=== PATIENT | male | born 1940 | race Caucasian/White ===

== ENCOUNTER → 2017-12-24 08:14 | Outpatient (CLI) | payer MEDICARE, OTHER, SELFPAY ==
[2017-12-24 10:40] LABS: Alanine Aminotransferase 39 IU/L (21-72); Albumin 4.4 g/dL (3.5-5.0); Albumin Globulin Ratio 1.4 (1.0-2.8); Alkaline Phosphatase 51 U/L (38-126); Aspartate Aminotransferase 48 IU/L (17-59); BUN Creatinine Ratio 12.1 (6-22); Blood Urea Nitrogen 17 mg/dL (9-20); Calcium 9.1 mg/dL (8.4-10.2); Carbon Dioxide 24 mmol/L (22-32); Chloride 104 mmol/L (98-107); Cholesterol 162 mg/dL (140-199); Globulin 3.1 g/dL (1.7-4.1); Glucose 109 mg/dL (80-110); HDL Cholesterol 50 mg/dL (40-60); LDL Cholesterol Calculated 84 mg/dL (<100); Sodium 143 mmol/L (137-145); Total Protein 7.5 g/dL (6.3-8.2); Triglycerides 141 mg/dL (35-150)
[2017-12-24 11:29] LABS: HEMOLYSIS 23 (0-50); Prostate Specific Antigen Scrn 1.96 ng/mL (0.1-4.0)
== END ==
PROVIDERS: PCP Internal Medicine; Visit Provider Internal Medicine
DX: E78.00 Pure hypercholesterolemia, unspecified (principal)
CPT/HCPCS: 36415; 80053; 80061; G0103

== ENCOUNTER → 2018-12-07 07:51 | Outpatient (CLI) | payer MEDICARE, OTHER, SELFPAY ==
[2018-12-07 08:31] LABS: Alanine Aminotransferase 24 IU/L (21-72); Albumin 4.3 g/dL (3.5-5.0); Albumin Globulin Ratio 1.5 (1.0-2.8); Alkaline Phosphatase 45 U/L (38-126); Aspartate Aminotransferase 25 IU/L (17-59); Bilirubin Total 0.6 mg/dL (0.2-1.3); Blood Urea Nitrogen 18 mg/dL (9-20); Calcium 9.6 mg/dL (8.4-10.2); Carbon Dioxide 28 mmol/L (22-32); Chloride 104 mmol/L (98-107); Cholesterol 157 mg/dL (140-199); Estimated Glomerular Filt Rate 58.4 mL/min (>60); Globulin 2.9 g/dL (1.7-4.1); Glucose 107 mg/dL (80-110); HDL Cholesterol 49 mg/dL (40-60); HEMOLYSIS < 15 (0-50); LDL Cholesterol Calculated 91 mg/dL (<100); Potassium 4.3 mmol/L (3.4-5.1); Sodium 142 mmol/L (137-145); Total Protein 7.2 g/dL (6.3-8.2); Triglycerides 83 mg/dL (35-150)
[2018-12-07 09:01] LABS: Prostate Specific Antigen Scrn 2.29 ng/mL (0.1-4.0)
== END ==
PROVIDERS: PCP Internal Medicine; Visit Provider Internal Medicine
DX: E78.00 Pure hypercholesterolemia, unspecified (principal); N18.9 Chronic kidney disease, unspecified; Z12.5 Encounter for screening for malignant neoplasm of prostate
CPT/HCPCS: 36415; 80053; 80061; G0103

== ENCOUNTER → 2019-12-28 07:30 | Outpatient (CLI) | payer MEDICARE, OTHER, SELFPAY ==
[2019-12-28 08:37] LABS: Add Manual Diff / Slide Review NO; Basophils Absolute Auto 0 /uL (0-100); Basophils Percent Auto 0.9 % (0-2); Eosinophils Absolute Auto 200 /uL (0-450); Eosinophils Percent Auto 4.4 % (2-4); Hematocrit 47.7 % (41-53); Hemoglobin 16.1 g/dL (13.5-17.5); Lymphocytes Absolute Auto 1600 /uL (1100-4500); Lymphocytes Percent Auto 32.2 % (25-40); Mean Corpuscular HGB Conc 33.7 % (30-36); Mean Corpuscular Hemoglobin 31.2 PG (26-34); Mean Corpuscular Volume 92.4 fL (80-100); Monocytes Absolute Auto 500 /uL (0-900); Monocytes Percent Auto 10.8 % (3-14); Neutrophils Absolute Auto 2600 /uL (1500-7000); Neutrophils Percent Auto 51.7 % (50-75); Platelet Count 165 X10^3/uL (150-400); Red Blood Cell Count 5.16 X10^6/uL (4.5-5.9)
[2019-12-28 09:38] LABS: Alanine Aminotransferase 30 IU/L (<50); Albumin 4.1 g/dL (3.5-5.0); Albumin Globulin Ratio 1.4 (1.0-2.8); Alkaline Phosphatase 55 U/L (38-126); Aspartate Aminotransferase 29 IU/L (17-59); BUN Creatinine Ratio 12.7 (6-22); Bilirubin Total 0.8 mg/dL (0.2-1.3); Blood Urea Nitrogen 16 mg/dL (9-20); Calcium 9.3 mg/dL (8.4-10.2); Carbon Dioxide 30 mmol/L (22-32); Chloride 103 mmol/L (98-107); Cholesterol 149 mg/dL (140-199); Estimated Glomerular Filt Rate 55.1 mL/min (>60); Glucose 100 mg/dL (80-110); HDL Cholesterol 46 mg/dL (40-60); HEMOLYSIS < 15 (0-50); LDL Cholesterol Calculated 77 mg/dL (<100); Potassium 4.4 mmol/L (3.4-5.1); Sodium 139 mmol/L (137-145); Total Protein 7.1 g/dL (6.3-8.2); Triglycerides 131 mg/dL (35-150)
== END ==
PROVIDERS: PCP Internal Medicine; Referring Provider Internal Medicine; Visit Provider Internal Medicine
DX: E78.00 Pure hypercholesterolemia, unspecified (principal); N18.9 Chronic kidney disease, unspecified
CPT/HCPCS: 36415; 80053; 80061; 85025

== ENCOUNTER → 2022-06-26 15:19 | Outpatient (CLI) | payer MEDICARE, SELFPAY ==
--- NOTE | 2022-06-26 15:22 | DI.RAD.S_ITS ---
PROCEDURE: XR CHEST 2V INDICATIONS: shortness of breath TECHNIQUE: 2 views of the chest were acquired. COMPARISON: [facility], , CHEST 2 VIEW, 03/20/2015, 10:37. FINDINGS: Surgical changes and devices: None. Lungs and pleura: Lungs are clear. No pleural effusions or pneumothorax. Mediastinum: Mediastinal contours are normal. Heart size is normal. Bones and chest wall: No suspicious bony abnormalities. Soft tissues appear unremarkable. IMPRESSION: Normal for age, source of current shortness of breath symptoms is not seen. Dictated by: Branden Benavides M.D. on 06/26/2022 at 16:33 Approved by: Branden Benavides M.D. on 06/26/2022 at 16:34
--- NOTE | 2022-06-26 15:22 | DI.RAD.S_ITS ---
PROCEDURE: XR ABDOMEN 1V INDICATIONS: abdominal/flank pain TECHNIQUE: One view of the abdomen acquired. COMPARISON: [facility], CT, ABDOMEN/PELVIS WITH CONTRAST, 10/23/2006, 18:41. FINDINGS: Surgical changes and devices: None. Bowel: Bowel gas pattern is normal except for right colonic obstipation. Additionally, at the right lower quadrant in the area of the medial cecum there is an unusual ovoid large calcification that measures up to 1.7 x 2.3 cm and at its inferior border there are at least 3 separate much smaller satellite calcifications. This structure was not present on a distant past CT scan 10/23/06. Soft tissues: No suspicious abdominal calcifications. Visualized solid organ contours appear normal in size. Bones: No suspicious bony lesions. IMPRESSION: No left lower quadrant abnormality found. Asymmetric right colonic obstipation. An unusual large calcification with adjacent inferior border satellite calcifications is present at the right lower quadrant. This is of uncertain etiology and clinical significance, but could represent a manifestation of a large appendicoliths or even a rare manifestation of appendiceal mucocele. It was not present on CT scanning in 2006. For both the left lower quadrant pain and this finding follow-up CT scanning with contrast likely is warranted. Dictated by: Branden Benavides M.D. on 06/26/2022 at 16:29 Approved by: Branden Benavides M.D. on 06/26/2022 at 16:33
== END ==
PROVIDERS: PCP Physician Assistant; Referring Provider Internal Medicine; Visit Provider Internal Medicine
DX: R10.9 Unspecified abdominal pain (principal); R06.02 Shortness of breath; K59.00 Constipation, unspecified
CPT/HCPCS: 71046; 74018

== ENCOUNTER 2022-06-26 20:47 | Inpatient (IN) | payer MEDICARE, SELFPAY ==
[2022-06-26 20:55] VITALS: BP 129/74; PULSE 70; RESP 16; TEMP 36.8; O2SAT 96; BMI 27.9
[2022-06-26 21:29] LABS: INR 1.2 (0.9-1.3); Prothrombin Time 13.8 SECONDS (10.1-12.7)
[2022-06-26 21:31] LABS: PTT Partial Thromboplastin Tim 32 SECONDS (26-36)
[2022-06-26 21:46] LABS: Add Manual Diff / Slide Review NO; Basophils Absolute Auto 200 /uL (0-100); Eosinophils Absolute Auto 200 /uL (0-450); Eosinophils Percent Auto 2.3 % (2-4); Hematocrit 45.2 % (41-53); Hemoglobin 15.4 g/dL (13.5-17.5); Lymphocytes Absolute Auto 1000 /uL (1100-4500); Lymphocytes Percent Auto 12.8 % (25-40); Mean Corpuscular HGB Conc 34.2 % (30-36); Mean Corpuscular Hemoglobin 31.1 PG (26-34); Mean Corpuscular Volume 91.1 fL (80-100); Monocytes Absolute Auto 900 /uL (0-900); Monocytes Percent Auto 11.7 % (3-14); Neutrophils Absolute Auto 5600 /uL (1500-7000); Neutrophils Percent Auto 71.2 % (50-75); Platelet Count 184 X10^3/uL (150-400); Red Blood Cell Count 4.96 X10^6/uL (4.5-5.9); Red Cell Distribution Width 13.5 % (11.6-14.8); White Blood Cell Count 7.9 X10^3/uL (4.5-11.0)
[2022-06-26 21:57] LABS: Alanine Aminotransferase 26 IU/L (<50); Albumin Globulin Ratio 1.1 (1.0-2.8); Alkaline Phosphatase 52 U/L (38-126); Aspartate Aminotransferase 23 IU/L (17-59); BUN Creatinine Ratio 10.5 (6-22); Bilirubin Total 0.6 mg/dL (0.2-1.3); Blood Urea Nitrogen 51 mg/dL (9-20); Calcium 8.9 mg/dL (8.4-10.2); Carbon Dioxide 18 mmol/L (22-32); Chloride 106 mmol/L (98-107); Creatine Kinase 162 U/L (55-170); Estimated Glomerular Filt Rate 11 mL/min (>60); Globulin 3.6 g/dL (1.7-4.1); Glucose 121 mg/dL (80-110); HEMOLYSIS 17 (0-50); Lipase 318 U/L (23-300); Potassium 4.2 mmol/L (3.4-5.1); Sodium 137 mmol/L (137-145); Total Protein 7.6 g/dL (6.3-8.2)
[2022-06-26 22:07] LABS: Troponin I 0.017 ng/mL (0.01-0.034)
[2022-06-26 22:12] LABS: CKMB % Relative Index 1.7 % (1.5-5.0)
[2022-06-26 22:14] VITALS: BP 131/71; PULSE 62; RESP 16; O2SAT 97
[2022-06-26 22:36] VITALS: PULSE 65; RESP 23; O2SAT 96
[2022-06-26 22:50] LABS: COVID19 -Nasal RAPID Negative (Negative)
[2022-06-26 22:59] LABS: D Dimer 11286 ng/ml (<500)
[2022-06-26 23:00] VITALS: BP 124/79; PULSE 61; RESP 23; O2SAT 96
--- NOTE | 2022-06-26 23:17 | DI.US.S_ITS ---
PROCEDURE: US PERIPH VENOUS LOW EXTREM BI INDICATIONS: ELEVATED D-DIMER TECHNIQUE: Real-time imaging, as well as color and pulse Doppler interrogation, were performed of the deep veins of both legs from the inguinal ligament to the popliteal fossa. COMPARISON: [facility], US, US RENAL COMPLETE, 06/26/2022, 23:52. [facility], CR, XR ABDOMEN 1V, 06/26/2022, 15:45. [facility], CR, XR CHEST 2V, 06/26/2022, 15:45. FINDINGS: Right: The common femoral, femoral and popliteal veins are normally compressible, and free of intraluminal thrombus. Color and pulse Doppler demonstrate normal phasic intravascular flow. There is normal augmentation response to distal compression maneuver. Left: The common femoral, femoral and popliteal veins are normally compressible, and free of intraluminal thrombus. Color and pulse Doppler demonstrate normal phasic intravascular flow. There is normal augmentation response to distal compression maneuver. IMPRESSION: Negative for deep venous thrombosis. Dictated by: Rah Gee M.D. on 06/26/2022 at 23:31 Approved by: Rah Gee M.D. on 06/26/2022 at 23:31
--- NOTE | 2022-06-26 23:17 | ED.RECABL ---
HPI - Recheck/Abnormal Lab/Rx General Chief Complaint: Recheck/Abnormal Lab/Rx Stated Complaint: Check for blood clots Time Seen by Provider: 06/26/22 22:37 Source: patient Mode of arrival: Family Vehicle History of Present Illness HPI narrative: Patient is a 82-year-old male history of diabetes, BPH presenting today at request of his provider for elevated D-dimer. He reports that he was in [place] for last 5 weeks they flew back about week ago. He has had some shortness of breath with exertion mostly today while mowing lawn. It did not stop him he was able to keep more in the lawn. He has had some left-sided pain last night to 6 days as well. He reports it by taking 2 Excedrin makes the pain go away. He denies any nausea or vomiting. Pain does not radiate to his groin. He denies any chest pain. No orthopnea no calf pain lower extremity edema. No other abdominal pain. He actually reports that he is having some mild right-sided pain as well but the left is worse. He went to his PCP earlier today outpatient blood work done found have an elevated D-dimer and sent to the ED. I do not have record of this test or any other test. Related Data Home Medications Medication Instructions Recorded Confirmed ASPIRIN (Aspirin Low Dose) 162 mg PO ##0 10/23/06 [LOVASTATIN] ##0 10/23/06 Allergies Allergy/AdvReac Type Severity Reaction Status Date / Time No Known Drug Allergies Allergy Verified 06/26/22 23:20 Review of Systems Review of Systems ROS Unobtainable: All systems reviewed & are unremarkable except as noted in HPI and below Patient History Medical History Acute renal insufficiency Benign prostatic hyperplasia Bilateral hydronephrosis Bilateral renal stones Elevated serum creatinine Lower urinary tract symptoms Social History household members: spouse Smoking Status: Never smoker alcohol intake: never Exam Initial Vital Signs Initial Vital Signs: Vital Signs Temperature 98.3 F 06/26/22 20:55 Pulse Rate 70 06/26/22 20:55 Respiratory Rate 16 06/26/22 20:55 Blood Pressure 129/74 06/26/22 20:55 Pulse Oximetry 96 06/26/22 20:55 Oxygen Delivery Method Room Air 06/26/22 20:55 GENERAL: Alert pleasant well-appearing 82-year-old male appears younger than stated age HEENT: Head atraumatic,EOMI, pupils reactive, face symmetric, moist mucous membranes CARDIOVASCULAR: Regular rate and rhythm without murmurs, rubs or gallops. RESPIRATORY: Breath sounds equal bilaterally, no wheezes rales or rhonchi. ABDOMEN: Soft, nontender. Normoactive bowel sounds all 4 quadrants. No guarding or rebound. Low old lift actual lateral pain no guarding or rebound : No CVA tenderness EXTREMITIES: Normal range of motion, no clubbing or edema. Neurovascularly intact NEUROLOGICAL: Alert and oriented x4.Normal gait and speech. SKIN: Warm, dry, no laceration, no petechiae, no rashes or lesions. Course Orders Ordered: ED Orders 06/26/22 21:05 Complete Blood Count AUTO DIFF Stat Comprehensive Metabolic Panel Stat D Dimer Stat Lipase Stat Magnesium Stat PTT Partial Thromboplastin Jeremi Stat Prothrombin Time INR Stat Troponin & CK Cardiac Panel Stat 06/26/22 22:32 COVID19 -Nasal RAPID Stat 06/26/22 23:17 US periph venous low extrem bi Stat 06/26/22 23:41 UA Complete [Urinalysis and Microscopic] Stat Urine Culture Stat 06/26/22 23:42 US renal complete Stat Creatinine Urine Random Stat Sodium Urine Random Stat 06/27/22 00:06 Lactate (Lactic Acid) Stat 06/27/22 00:27 CT kidney ureter bladder (KUB) Stat 06/27/22 00:58 BMP [Basic Metabolic Panel] Stat 06/27/22 07:00 Basic Metabolic Panel Urgent Complete Blood Count AUTO DIFF Urgent Acetaminophen (Acetaminophen 325 Mg Tablet) 650 mg PO Q6H PRN PRN Reason: Fever/Mild Pain (1-3) Hydrocodone Bitart/Acetaminophen (Hydrocodone/Acet 5/325 Tablet) 1 tab PO PACUNOW PRN PRN Reason: Mild or moderate pain Fentanyl (Fentanyl 100 Mcg/2 Ml Inj) 0 mcg IV Q5MIN PRN PRN Reason: Pain, Severe (7-10) Hydromorphone HCl (Hydromorphone 2 Mg Inj) 0 mg IV Q5MIN PRN PRN Reason: Pain, Mild (1-3) Hydroxyzine HCl (Hydroxyzine 50 Mg/Ml Inj) 25 mg IM NOW PRN PRN Reason: Pain, Mild (1-3) Lactated Ringer's (Lactated Ringers) 1,000 mls @ 42 mls/hr IV [facility] Last Infusion: 06/27/22 05:13 Dose: 0 mls/hr Documented By: Admin: 06/27/22 05:12 Dose: 42 mls/hr Documented By: CG Lactated Ringer's (Lactated Ringers) 1,000 mls @ 120 mls/hr IV [facility] Last Admin: 06/27/22 05:49 Dose: Not Given Documented By: Sodium Chloride (Normal Saline 0.9%) 1,000 mls @ 100 mls/hr IV [facility] Last Admin: 06/27/22 05:49 Dose: 100 mls/hr Documented By: Naloxone HCl (Naloxone 0.4 Mg/Ml Vial) 0.2 mg IV Q2MIN PRN PRN Reason: Opiate Reversal Ondansetron HCl (Ondansetron 4 Mg/2 Ml Inj) 4 mg IV NOW PRN PRN Reason: Nausea And Vomiting Ondansetron HCl (Ondansetron 4 Mg/2 Ml Inj) 4 mg IV Q8HR PRN PRN Reason: Nausea And Vomiting Oxycodone HCl (Oxycodone Ir 5 Mg Tablet) 5 mg PO PACUNOW PRN PRN Reason: Mild or moderate pain Oxycodone HCl (Oxycodone Ir 5 Mg Tablet) 5 mg PO Q3H PRN PRN Reason: Pain, Moderate (4-6) Discontinued Medications Sodium Chloride (Normal Saline 0.9%) 1,000 mls @ 1,000 mls/hr IV BOLUS ONE Stop: 06/27/22 00:16 Last Infusion: 06/27/22 00:47 Dose: 0 mls/hr Documented By: Admin: 06/26/22 23:20 Dose: 1,000 mls/hr Documented By: Cefazolin Sodium/Dextrose (Ancef) 100 mls @ 200 mls/hr IV NOW ONE Stop: 06/27/22 04:54 Last Infusion: 06/27/22 05:50 Dose: 0 mls/hr Documented By: Infusion: 06/27/22 04:08 Dose: 200 mls/hr Documented By: Admin: 06/27/22 04:00 Dose: 200 mls/hr Documented By: IRA Iopamidol (Iopamidol 30 Ml Vial) 30 ml INJ NOW ONE Stop: 06/27/22 04:31 Last Admin: 06/27/22 04:30 Dose: 30 ml Documented By: Lidocaine HCl (Lidocaine 2% (Glydo) 6 Ml Gel) 6 ml TOP NOW ONE Stop: 06/27/22 00:33 Last Admin: 06/27/22 01:00 Dose: 6 ml Documented By: Vital Signs Vital signs: Vital Signs - 8 hr 06/26/22 22:14 06/26/22 22:36 06/26/22 23:00 Pulse Rate 62 65 Respiratory Rate 16 23 Blood Pressure 131/71 124/79 Pulse Oximetry 97 96 Oxygen Delivery Method Room Air 06/26/22 23:00 06/26/22 23:30 06/27/22 01:46 Pulse Rate 61 70 63 Respiratory Rate 23 20 22 Blood Pressure Pulse Oximetry 96 94 93 Oxygen Delivery Method 06/27/22 02:00 06/27/22 02:00 06/27/22 02:30 Pulse Rate 63 62 Respiratory Rate 18 23 Blood Pressure 126/74 Pulse Oximetry 94 94 Oxygen Delivery Method 06/27/22 03:00 06/27/22 03:00 Pulse Rate 67 Respiratory Rate 20 Blood Pressure 141/67 H Pulse Oximetry 95 Oxygen Delivery Method MDM - Recheck/Abnormal Lab/Rx Lab Data 06/26/22 21:05 06/27/22 00:58 Labs: Lab Results 06/26/22 06/26/22 06/26/22 Range/Units 21:05 21:05 21:05 WBC 7.9 (4.5-11.0) X10^3/uL RBC 4.96 (4.5-5.9) X10^6/uL Hgb 15.4 (13.5-17.5) g/dL Hct 45.2 (41-53) % MCV 91.1 (80-100) fL MCH 31.1 (26-34) PG MCHC 34.2 (30-36) % RDW 13.5 (11.6-14.8) % Plt Count 184 (150-400) X10^3/uL Neut % (Auto) 71.2 (50-75) % Lymph % (Auto) 12.8 L (25-40) % Osborne % (Auto) 11.7 (3-14) % Eos % (Auto) 2.3 (2-4) % Baso % (Auto) 2.0 (0-2) % Neut # (Auto) 5600 (5970-1369) /uL Lymph # (Auto) 1000 L (4774-7495) /uL Osborne # (Auto) 900 (0-900) /uL Eos # (Auto) 200 (0-450) /uL Baso # (Auto) 200 H (0-100) /uL PT 13.8 H (10.1-12.7) SECONDS INR 1.2 (0.9-1.3) APTT 32 (26-36) SECONDS D-Dimer (<500) ng/ml Sodium 137 (137-145) mmol/L Potassium 4.2 (3.4-5.1) mmol/L Chloride 106 (98-107) mmol/L Carbon Dioxide 18 L (22-32) mmol/L BUN 51 H (9-20) mg/dL Creatinine 4.87 H (0.66-1.25) mg/dL Estimated GFR 11 L (>60) mL/min BUN/Creatinine Ratio 10.5 (6-22) Glucose 121 H (80-110) mg/dL Lactate (0.7-2.1) mmol/L Calcium 8.9 (8.4-10.2) mg/dL Magnesium 2.0 (1.6-2.3) mg/dL Total Bilirubin 0.6 (0.2-1.3) mg/dL AST 23 (17-59) IU/L ALT 26 (<50) IU/L Alkaline Phosphatase 52 (38-126) U/L Total Creatine Kinase 162 (55-170) U/L CK-MB (CK-2) 2.80 H (<2.37) ng/mL CK-MB (CK-2) Rel Index 1.7 (1.5-5.0) % Troponin I 0.017 (0.01-0.034) ng/mL Total Protein 7.6 (6.3-8.2) g/dL Albumin 4.0 (3.5-5.0) g/dL Globulin 3.6 (1.7-4.1) g/dL Albumin/Globulin Ratio 1.1 (1.0-2.8) Lipase 318 H (23-300) U/L Urine Color Urine Appearance Urine pH (4.5-8.0) Ur Specific [place] (1.000-1.035) Urine Protein (Negative) Urine Glucose (UA) (Negative) g/dL Urine Ketones (NEGATIVE) Urine Occult Blood (Negative) Urine Nitrate (Negative) Urine Bilirubin (NEGATIVE) Urine Urobilinogen (0.2) E.U./dL Ur Leukocyte Esterase (NEGATIVE) Urine RBC (0-5/HPF) Urine WBC (0-5/HPF) Calcium Oxalate Crystal Urine Bacteria (None) Ur Culture Indicated? Ur Random Sodium (30-90) mmol/L Urine Creatinine mg/dL SARS-CoV-2 (PCR) (Negative) 06/26/22 06/26/22 06/26/22 Range/Units 21:05 21:05 22:32 WBC (4.5-11.0) X10^3/uL RBC (4.5-5.9) X10^6/uL Hgb (13.5-17.5) g/dL Hct (41-53) % MCV (80-100) fL MCH (26-34) PG MCHC (30-36) % RDW (11.6-14.8) % Plt Count (150-400) X10^3/uL Neut % (Auto) (50-75) % Lymph % (Auto) (25-40) % Osborne % (Auto) (3-14) % Eos % (Auto) (2-4) % Baso % (Auto) (0-2) % Neut # (Auto) (4949-7518) /uL Lymph # (Auto) (0537-6674) /uL Osborne # (Auto) (0-900) /uL Eos # (Auto) (0-450) /uL Baso # (Auto) (0-100) /uL PT (10.1-12.7) SECONDS INR (0.9-1.3) APTT (26-36) SECONDS D-Dimer 12713 H (<500) ng/ml Sodium (137-145) mmol/L Potassium (3.4-5.1) mmol/L Chloride (98-107) mmol/L Carbon Dioxide (22-32) mmol/L BUN (9-20) mg/dL Creatinine (0.66-1.25) mg/dL Estimated GFR (>60) mL/min BUN/Creatinine Ratio (6-22) Glucose (80-110) mg/dL Lactate 1.5 (0.7-2.1) mmol/L Calcium (8.4-10.2) mg/dL Magnesium (1.6-2.3) mg/dL Total Bilirubin (0.2-1.3) mg/dL AST (17-59) IU/L ALT (<50) IU/L Alkaline Phosphatase (38-126) U/L Total Creatine Kinase (55-170) U/L CK-MB (CK-2) (<2.37) ng/mL CK-MB (CK-2) Rel Index (1.5-5.0) % Troponin I (0.01-0.034) ng/mL Total Protein (6.3-8.2) g/dL Albumin (3.5-5.0) g/dL Globulin (1.7-4.1) g/dL Albumin/Globulin Ratio (1.0-2.8) Lipase (23-300) U/L Urine Color Urine Appearance Urine pH (4.5-8.0) Ur Specific [place] (1.000-1.035) Urine Protein (Negative) Urine Glucose (UA) (Negative) g/dL Urine Ketones (NEGATIVE) Urine Occult Blood (Negative) Urine Nitrate (Negative) Urine Bilirubin (NEGATIVE) Urine Urobilinogen (0.2) E.U./dL Ur Leukocyte Esterase (NEGATIVE) Urine RBC (0-5/HPF) Urine WBC (0-5/HPF) Calcium Oxalate Crystal Urine Bacteria (None) Ur Culture Indicated? Ur Random Sodium (30-90) mmol/L Urine Creatinine mg/dL SARS-CoV-2 (PCR) Negative (Negative) 06/26/22 06/26/22 06/27/22 Range/Units 23:41 23:42 00:58 WBC (4.5-11.0) X10^3/uL RBC (4.5-5.9) X10^6/uL Hgb (13.5-17.5) g/dL Hct (41-53) % MCV (80-100) fL MCH (26-34) PG MCHC (30-36) % RDW (11.6-14.8) % Plt Count (150-400) X10^3/uL Neut % (Auto) (50-75) % Lymph % (Auto) (25-40) % Osborne % (Auto) (3-14) % Eos % (Auto) (2-4) % Baso % (Auto) (0-2) % Neut # (Auto) (9460-6223) /uL Lymph # (Auto) (7808-0351) /uL Osborne # (Auto) (0-900) /uL Eos # (Auto) (0-450) /uL Baso # (Auto) (0-100) /uL PT (10.1-12.7) SECONDS INR (0.9-1.3) APTT (26-36) SECONDS D-Dimer (<500) ng/ml Sodium 138 (137-145) mmol/L Potassium 3.5 (3.4-5.1) mmol/L Chloride 109 H (98-107) mmol/L Carbon Dioxide 19 L (22-32) mmol/L BUN 48 H (9-20) mg/dL Creatinine 4.46 H (0.66-1.25) mg/dL Estimated GFR 12 L (>60) mL/min BUN/Creatinine Ratio 10.8 (6-22) Glucose 91 (80-110) mg/dL Lactate (0.7-2.1) mmol/L Calcium 7.6 L (8.4-10.2) mg/dL Magnesium (1.6-2.3) mg/dL Total Bilirubin (0.2-1.3) mg/dL AST (17-59) IU/L ALT (<50) IU/L Alkaline Phosphatase (38-126) U/L Total Creatine Kinase (55-170) U/L CK-MB (CK-2) (<2.37) ng/mL CK-MB (CK-2) Rel Index (1.5-5.0) % Troponin I (0.01-0.034) ng/mL Total Protein (6.3-8.2) g/dL Albumin (3.5-5.0) g/dL Globulin (1.7-4.1) g/dL Albumin/Globulin Ratio (1.0-2.8) Lipase (23-300) U/L Urine Color Yellow Urine Appearance Clear Urine pH 5.5 (4.5-8.0) Ur Specific [place] 1.025 (1.000-1.035) Urine Protein 1+ H (Negative) Urine Glucose (UA) Negative (Negative) g/dL Urine Ketones Negative (NEGATIVE) Urine Occult Blood 3+ H (Negative) Urine Nitrate Negative (Negative) Urine Bilirubin Negative (NEGATIVE) Urine Urobilinogen 0.2 (0.2) E.U./dL Ur Leukocyte Esterase 1+ H (NEGATIVE) Urine RBC 30-100/hpf H (0-5/HPF) Urine WBC 5-10/hpf H (0-5/HPF) Calcium Oxalate Crystal Occasional H Urine Bacteria None seen (None) Ur Culture Indicated? Specimen cultured Ur Random Sodium 64 (30-90) mmol/L Urine Creatinine 130.6 mg/dL SARS-CoV-2 (PCR) (Negative) Urine Dip Bedside Urine Glucose Negative Bedside Urine Bilirubin - Negative Bedside Urine Ketone - Negative Urine Specific [place] 1.025 Bedside Urine Occult Blood +++ Bedside Urine pH 6.0 Bedside Urine Protein +/- 15 Bedside Urine Urobilinogen - Negative Bedside Urine Nitrite - Negative Bedside Urine Leukocytes + 70 Esterase Imaging Data US - DVT: Radiologist's Impression: PROCEDURE:? US PERIPH VENOUS LOW EXTREM BI ? INDICATIONS:? ELEVATED D-DIMER ? TECHNIQUE:? Real-time imaging, as well as color and pulse Doppler interrogation, were performed of the deep veins of both legs from the inguinal ligament to the popliteal fossa.? ? COMPARISON:? [facility], US, US RENAL COMPLETE, 06/26/2022, 23:52.? [facility], CR, XR ABDOMEN 1V, 06/26/2022, 15:45.? [facility], CR, XR CHEST 2V, 06/26/2022, 15:45. ? FINDINGS:? ? Right: The common femoral, femoral and popliteal veins are normally compressible, and free of intraluminal thrombus.? Color and pulse Doppler demonstrate normal phasic intravascular flow.? There is normal augmentation response to distal compression maneuver.? ? Left: The common femoral, femoral and popliteal veins are normally compressible, and free of intraluminal thrombus.? Color and pulse Doppler demonstrate normal phasic intravascular flow.? There is normal augmentation response to distal compression maneuver.? ? ? IMPRESSION:? ? Negative for deep venous thrombosis. ? ? Dictated by: Rah Gee M.D. on 06/26/2022 at 23:31 ? Chest x-ray: Radiologist's Impression: PROCEDURE:? XR CHEST 2V ? INDICATIONS:? shortness of breath ? TECHNIQUE:? 2 views of the chest were acquired.? ? COMPARISON:? [facility], CR, CHEST 2 VIEW, 03/20/2015, 10:37. ? FINDINGS:? ? Surgical changes and devices:? None.? ? Lungs and pleura:? Lungs are clear.? No pleural effusions or pneumothorax.? ? Mediastinum:? Mediastinal contours are normal.? Heart size is normal.? ? Bones and chest wall:? No suspicious bony abnormalities.? Soft tissues appear unremarkable.? ? IMPRESSION:? Normal for age, source of current shortness of breath symptoms is not seen. ? ? Dictated by: Branden Benavides M.D. on 06/26/2022 at 16:33 ? ? US Renal: Radiologist's Impression: PROCEDURE:? US RENAL COMPLETE ? INDICATIONS:? RENAL FAILURE ? TECHNIQUE:? Real-time scanning was performed of the kidneys and bladder, with image documentation.? ? COMPARISON:? [facility], CT, ABDOMEN/PELVIS WITH CONTRAST, 10/23/2006, 18:41.? [facility], US, ABDOMEN LIMITED, 06/04/2014, 11:38.? [facility], US, US PERIPH VENOUS LOW EXTREM BI, 06/26/2022, 23:44.? [facility], CR, XR ABDOMEN 1V, 06/26/2022, 15:45.? [facility], CR, XR CHEST 2V, 06/26/2022, 15:45. ? FINDINGS:? ? Kidneys: Right kidney measures 16.2 cm long; left kidney measures 12.8 cm long.? Right renal cortical thickness is 1.4 cm; left renal cortical thickness is 4 cm.? Renal cortical echotexture is normal.? ? No suspicious solid mass lesions.? ? There is severe right-sided hydronephrosis.? No left-sided hydronephrosis is seen. ? An apparent nonobstructing kidney stone measuring 2.4 cm can be seen inferiorly. ? Bladder:? The patient voided just prior to this study, with a postvoid bladder volume of 168 cc.? Neither ureteral jet can be seen. ? Miscellaneous:? No free pelvic fluid.? ? ? IMPRESSION:? Severe right-sided hydronephrosis, with right renal enlargement. ? There is an apparent 2.4 cm nonobstructing stone at the inferior pole of the right kidney.? This correlates well with the radiopaque stone seen on the plain film performed earlier in the day. ? Moderate postvoid residual. ? ? Dictated by: Rah Gee M.D. on 06/26/2022 at 23:31 ? ? CT scan - abdomen/pelvis: Radiologist's Impression: PROCEDURE:? CT KIDNEY URETER BLADDER (KUB) ? INDICATIONS:? renal failure left flank pain ? TECHNIQUE:? Axial sections were acquired from the lung bases to the pubic symphysis.? Coronal and sagittal reformats were performed.? For radiation dose reduction, the following was used: ?automated exposure control, adjustment of mA and/or kV according to patient size.? ? COMPARISON:? [facility], CT, ABDOMEN/PELVIS WITH CONTRAST, 10/23/2006, 18:41.? [facility], CR, XR ABDOMEN 1V, 06/26/2022, 15:45.? [facility], US, US RENAL COMPLETE, 06/26/2022, 23:52. ? FINDINGS:? Image quality:? Excellent.? ? Lung bases:? Unremarkable.? ? Heart:? Prominent coronary artery calcification is seen. ? URINARY: Right Kidney:? The right renal collecting system is grossly dilated.? There is a dense stone seen at the left ureterovesicular junction measuring 2 x 2 cm and 1000 Hounsfield units.? An additional 6 mm stone measuring 450 Hounsfield units can be seen within the right renal collecting system.? There is thinning of the right renal cortex. Right Ureter:? No hydroureter.? ? Left Kidney:? There is moderate left-sided hydronephrosis.? No nonobstructing left-sided kidney stones are seen. Left Ureter:? There is moderate proximal left-sided hydronephrosis.? There is an obstructing stone seen within the left proximal ureter, as on series 3, image 34 and on series 2 image 56 measuring up to 7 mm and 350 Hounsfield units.? ? Bladder:? Normal wall thickness. No stones. ? ? ? ABDOMEN: Liver:? Unremarkable.? ? Gallbladder:? Unremarkable.? ? Biliary ducts:? Unremarkable.? ? Pancreas:? Unremarkable.? ? Spleen:? Unremarkable.? ? Adrenal Glands:? Unremarkable.? ? ? Stomach and Bowel:? Stomach, small bowel loops, and colon are unremarkable.? Colonic diverticulosis is seen, without findings of active diverticulitis. A normal appendix is incidentally noted.? Peritoneum:? No abnormal intraperitoneal fluid.? No free air.? ? Ventral Wall: ? No hernia.? Abdominal Nodes:? No enlarged retroperitoneal or mesenteric lymph nodes.? Vessels:? Aorta and inferior vena cava are normal in size.? Atherosclerotic calcification is noted.? ? PELVIS: Pelvic Organs:? The prostate is enlarged, measuring 5.4 cm transversely. Pelvic Nodes: Unremarkable. Miscellaneous:? Moderate bilateral fat containing inguinal hernias are seen.? Left groin postoperative clips are seen. ? Bones:? Focal L4-L5 degenerative change is seen.? Milder degenerative changes are seen elsewhere.? . ? IMPRESSION:? ? There is a 7 mm obstructing stone within the left proximal ureter, with associated left-sided hydronephrosis and hydroureter. ? Grossly dilated right renal collecting system, with a large stone at the right ureterovesicular junction.? There is associated thinning of the right renal cortex.? ? A nonobstructing right-sided kidney stone can also be seen. ? ? ? Additional findings:? Prominent coronary artery calcification Focal L4-L5 degenerative change Normal appendix Diverticulosis, without active diverticulitis Enlarged prostate Bilateral fat containing inguinal hernias Left groin postoperative clips ? ? ? Dictated by: Rah Gee M.D. on 06/27/2022 at 0:17 ? ? ECG Data Interpretation: Normal sinus rhythm 64 SC interval 186 QRS [address] changes MDM Narrative Medical decision making narrative: Patient 82-year-old healthy male presenting today with some shortness of breath and an elevated D-dimer as an outpatient. Shortness of breath seems to be very minimal he has no orthopnea conversational dyspnea not hypoxia hypotensive. In fact it and not even stop him while he was mowing the lawn today. D-dimer is noted to be extremely elevated at 11,000 thousand. However also noted to have a creatinine of 4.89 previously in 2019 it was 1.26. He is also been have elevated chloride 106, bicarb of 18 with a normal lactic acid of 1.5 and a negative troponin. He seems pretty asymptomatic walks to the restroom easily without any stopping or shortness of breath. He has a negative bilateral ultrasound for DVT. Renal function actually improved from a creatinine of 4.8-4.4 after 1 L fluid. FeNa is 1.8% suggesting an intrinsic problem. Solis catheter is also placed he has significant urine outflow mild hematuria. He is felt who are right kidney stone 2.2 cm. Along with stone 7 mm in left distal ureter. He is afebrile no evidence of infection no leukocytosis. Patient has a significantly elevated D-dimer of 11,000 with minimal shortness of breath and symptoms along with recent airplane travel. I suspect that patient's D-dimer is elevated cause he is not clearing it although difficult to prove he certainly is having shortness of breath with a recent airplane ride. He is not hypotensive tachycardic or hypoxic. He certainly is not symptomatic. Will not be putting patient on anticoagulation suspect the patient will be going to OR for large renal stones. Dr. Koo consulted in regards to renal failure and large kidney stone. He reports that patient likely needs urethral stent sooner rather than later with his worsening kidney function but thinks that the kidney function may be chronic. Dr. Jasso, updated patient's symptoms test results thinks the patient can stay here. Who agrees no need for heparin drip time Fractional Excretion of Sodium (FENa) from [facility] on 06/27/2022 All calculations should be rechecked by clinician prior to use RESULT SUMMARY: 1.8 % FENa Intrinsic e.g. ATN, AIN, glomerulonephritides INPUTS: Serum sodium ?> 137 mEq/L Serum creatinine ?> 4.87 mg/dL Urine sodium ?> 64 mEq/L Urine creatinine ?> 130 mg/dL Discharge Plan Departure Patient Disposition: Admitted As Inpatient Clinical Impression: Acute renal failure, Bilateral nephrolithiasis Admit Date/Time: 06/27/22 03:01 Admit Provider: Timi Jasso
[2022-06-26] MEDS: SODIUM CHLORIDE 0.9% 1,000 ML 1000 ML IV (23:20)
[2022-06-26 23:30] VITALS: PULSE 70; RESP 20; O2SAT 94
--- NOTE | 2022-06-26 23:42 | DI.US.S_ITS ---
PROCEDURE: US RENAL COMPLETE INDICATIONS: RENAL FAILURE TECHNIQUE: Real-time scanning was performed of the kidneys and bladder, with image documentation. COMPARISON: [facility], CT, ABDOMEN/PELVIS WITH CONTRAST, 10/23/2006, 18:41. [facility], US, ABDOMEN LIMITED, 06/04/2014, 11:38. [facility], US, US PERIPH VENOUS LOW EXTREM BI, 06/26/2022, 23:44. [facility], CR, XR ABDOMEN 1V, 06/26/2022, 15:45. [facility], CR, XR CHEST 2V, 06/26/2022, 15:45. FINDINGS: Kidneys: Right kidney measures 16.2 cm long; left kidney measures 12.8 cm long. Right renal cortical thickness is 1.4 cm; left renal cortical thickness is 4 cm. Renal cortical echotexture is normal. No suspicious solid mass lesions. There is severe right-sided hydronephrosis. No left-sided hydronephrosis is seen. An apparent nonobstructing kidney stone measuring 2.4 cm can be seen inferiorly. Bladder: The patient voided just prior to this study, with a postvoid bladder volume of 168 cc. Neither ureteral jet can be seen. Miscellaneous: No free pelvic fluid. IMPRESSION: Severe right-sided hydronephrosis, with right renal enlargement. There is an apparent 2.4 cm nonobstructing stone at the inferior pole of the right kidney. This correlates well with the radiopaque stone seen on the plain film performed earlier in the day. Moderate postvoid residual. Dictated by: Rah Gee M.D. on 06/26/2022 at 23:31 Approved by: Rah Gee M.D. on 06/26/2022 at 23:35
[2022-06-26 23:54] LABS: Appearance Urine UA CLEAR; Bilirubin Urine UA NEGATIVE (NEGATIVE); Color Urine UA YELLOW; Glucose Urine UA NEGATIVE (Negative); Ketones Urine UA NEGATIVE (NEGATIVE); Leukocyte Esterase Urine UA 1+ (NEGATIVE); Nitrite Urine UA NEGATIVE (Negative); Occult Blood Urine UA 3+ (Negative); Protein Urine UA 1+ (Negative); Specific Gravity Urine UA 1.025 (1.000-1.035); Urobilinogen Urine UA 0.2 E.U./dL (0.2); pH Urine UA 5.5 (4.5-8.0)
[2022-06-27] VITALS (30 sets, daily range): BP systolic 115–142; BP diastolic 62–76; PULSE 56–75; RESP 14–37; TEMP 36.2–37.2; O2SAT 91–98; BMI 27.9
--- NOTE | 2022-06-27 | DI.RAD.S_ITS ---
PROCEDURE: XR ABDOMEN 1V INDICATIONS: ureteral stent OR TECHNIQUE: 2 intra-operative images acquired by the Urology service. COMPARISON: [facility], CT, CT KIDNEY URETER BLADDER (KUB), 06/27/2022, 0:44. [facility], CR, XR ABDOMEN 1V, 06/26/2022, 15:45. FINDINGS: Bilateral ureteral stents have been placed. Right renal pelvic and intrarenal calculi are present, as before. Left proximal ureteral calculus is present. Small amount of contrast within the left intrarenal collecting system. IMPRESSION: Intraoperative imaging obtained during ureteral stent placement. Dictated by: Linus Bledsoe M.D. on 06/27/2022 at 8:07 Approved by: Linus Bledsoe M.D. on 06/27/2022 at 8:09
[2022-06-27 00:03] LABS: Calcium Oxalate Crystals Urine Occasional; Culture Indicated Urine Specimen Cultured; RBC Urine 30-100/HPF (0-5/HPF); WBC Urine 5-10/HPF (0-5/HPF)
[2022-06-27 00:09] LABS: Bacteria Urine None Seen
[2022-06-27 00:09] LABS: Creatinine Urine Random 130.6 mg/dL; Sodium Urine Random 64 mmol/L (30-90)
[2022-06-27 00:20] LABS: Lactate (Lactic Acid) 1.5 mmol/L (0.7-2.1)
--- NOTE | 2022-06-27 00:27 | DI.CT.S_ITS ---
PROCEDURE: CT KIDNEY URETER BLADDER (KUB) INDICATIONS: renal failure left flank pain TECHNIQUE: Axial sections were acquired from the lung bases to the pubic symphysis. Coronal and sagittal reformats were performed. For radiation dose reduction, the following was used: automated exposure control, adjustment of mA and/or kV according to patient size. COMPARISON: [facility], CT, ABDOMEN/PELVIS WITH CONTRAST, 10/23/2006, 18:41. [facility], CR, XR ABDOMEN 1V, 06/26/2022, 15:45. [facility], US, US RENAL COMPLETE, 06/26/2022, 23:52. FINDINGS: Image quality: Excellent. Lung bases: Unremarkable. Heart: Prominent coronary artery calcification is seen. URINARY: Right Kidney: The right renal collecting system is grossly dilated. There is a dense stone seen at the left ureterovesicular junction measuring 2 x 2 cm and 1000 Hounsfield units. An additional 6 mm stone measuring 450 Hounsfield units can be seen within the right renal collecting system. There is thinning of the right renal cortex. Right Ureter: No hydroureter. Left Kidney: There is moderate left-sided hydronephrosis. No nonobstructing left-sided kidney stones are seen. Left Ureter: There is moderate proximal left-sided hydronephrosis. There is an obstructing stone seen within the left proximal ureter, as on series 3, image 34 and on series 2 image 56 measuring up to 7 mm and 350 Hounsfield units. Bladder: Normal wall thickness. No stones. ABDOMEN: Liver: Unremarkable. Gallbladder: Unremarkable. Biliary ducts: Unremarkable. Pancreas: Unremarkable. Spleen: Unremarkable. Adrenal Glands: Unremarkable. Stomach and Bowel: Stomach, small bowel loops, and colon are unremarkable. Colonic diverticulosis is seen, without findings of active diverticulitis. A normal appendix is incidentally noted. Peritoneum: No abnormal intraperitoneal fluid. No free air. Ventral Wall: No hernia. Abdominal Nodes: No enlarged retroperitoneal or mesenteric lymph nodes. Vessels: Aorta and inferior vena cava are normal in size. Atherosclerotic calcification is noted. PELVIS: Pelvic Organs: The prostate is enlarged, measuring 5.4 cm transversely. Pelvic Nodes: Unremarkable. Miscellaneous: Moderate bilateral fat containing inguinal hernias are seen. Left groin postoperative clips are seen. Bones: Focal L4-L5 degenerative change is seen. Milder degenerative changes are seen elsewhere. . IMPRESSION: There is a 7 mm obstructing stone within the left proximal ureter, with associated left-sided hydronephrosis and hydroureter. Grossly dilated right renal collecting system, with a large stone at the right ureterovesicular junction. There is associated thinning of the right renal cortex. A nonobstructing right-sided kidney stone can also be seen. Additional findings: Prominent coronary artery calcification Focal L4-L5 degenerative change Normal appendix Diverticulosis, without active diverticulitis Enlarged prostate Bilateral fat containing inguinal hernias Left groin postoperative clips Dictated by: Rah Gee M.D. on 06/27/2022 at 0:17 Approved by: Rah Gee M.D. on 06/27/2022 at 0:23
[2022-06-27] MEDS: LIDOCAINE 2% (GLYDO) 6 ML GEL TOP (01:00)
[2022-06-27 01:15] LABS: BUN Creatinine Ratio 10.8 (6-22); Blood Urea Nitrogen 48 mg/dL (9-20); Calcium 7.6 mg/dL (8.4-10.2); Carbon Dioxide 19 mmol/L (22-32); Chloride 109 mmol/L (98-107); Estimated Glomerular Filt Rate 12 mL/min (>60); Glucose 91 mg/dL (80-110); HEMOLYSIS < 15 (0-50); Potassium 3.5 mmol/L (3.4-5.1); Sodium 138 mmol/L (137-145)
--- NOTE | 2022-06-27 03:09 | PM.CN ---
History of Present Illness Consult details Date Patient Seen: 06/27/22 Time Patient Seen: 03:10 Chief complaint: Bilateral ureteral obstruction Reason for consult: Bilateral ureteral obstruction elevated creatinine Requesting provider: Teetee Allison Narrative: I Was asked by Dr. Allison to see this 82-year-old male who presented to the emergency department with complaints of abdominal pain an elevated D-dimer and a creatinine in the 4+ range. Through workup he was found to have a large stone burden on the right massive hydronephrosis and renal parenchyma thinning. He also has an obstructing stone on the left so appears to have bilateral ureteral obstruction and significant renal distress. CT scan is reviewed and again shows large stone and multiple stones on the right massive hydronephrosis parenchymal thinning. On the left there is a 7 mm stone in the mid to proximal ureter hydronephrosis and perinephric stranding. Patient reports a history of stones distant maybe 35 years ago. He is had minimal pain on the right but has had some pain on the left over the last 6 days. Perhaps slightly worse yesterday. He has been taking Excedrin which he says helps relieve his pain. He denies gross hematuria, history of urinary tract infections or other sign or symptom of stones though it is clear that the process on the right is been going on for some time. His creatinine is significantly elevated from his historical creatinine which in 2019 or 2019 was 1.26 it is now in the 4.6-4.5 range again indicating significant renal distress he also has a markedly elevated D-dimer he had some shortness of breath earlier today and will be admitted by the hospitalist service. The patient is brought to the operating room for cystoscopy and bilateral stent placement to relieve his obstruction and hopefully his renal distress. Patient has no known drug allergies will be given Ancef 2 g by the emergency department. The procedure, risks, alternatives were discussed with the patient at length his questions were answered and he wishes to proceed the risks to include but not limited to bleeding, infection, injury to surrounding structures, inability to place stents, the possibility of permanent unrelenting renal damage, complications anesthesia, unforeseen and unpredictable consequences in sequelae. Patient voices understanding and acceptance of risks and wishes to proceed. Meds Home Medications and Allergies Home Medications Medication Instructions Recorded Confirmed Type ASPIRIN (Aspirin Low Dose) 162 mg PO ##0 10/23/06 History [LOVASTATIN] ##0 10/23/06 History Allergies Allergy/AdvReac Type Severity Reaction Status Date / Time No Known Drug Allergies Allergy Verified 06/26/22 23:20 Exam Vital Signs (past 8 hours): - 06/26/22 20:55 06/26/22 22:14 06/26/22 22:36 Temperature 98.3 F Pulse Rate 70 62 65 Respiratory Rate 16 16 23 Blood Pressure 129/74 131/71 Pulse Oximetry 96 97 96 Oxygen Delivery Method Room Air Room Air 06/26/22 23:00 06/26/22 23:00 06/26/22 23:30 Temperature Pulse Rate 61 70 Respiratory Rate 23 20 Blood Pressure 124/79 Pulse Oximetry 96 94 Oxygen Delivery Method 06/27/22 01:46 06/27/22 02:00 06/27/22 02:00 Temperature Pulse Rate 63 63 Respiratory Rate 22 18 Blood Pressure 126/74 Pulse Oximetry 93 94 Oxygen Delivery Method 06/27/22 02:30 06/27/22 03:00 06/27/22 03:00 Temperature Pulse Rate 62 67 Respiratory Rate 23 20 Blood Pressure 141/67 H Pulse Oximetry 94 95 Oxygen Delivery Method Oxygen Delivery Method Room Air Narrative Exam Narrative: General: This is a awake, alert, oriented male resting in a gurney who appears at this point in no acute distress Lungs: Clear coarse breath sounds Cardiovascular exam: Regular rate and rhythm without murmur Abdominal exam: Soft, nontender, without palpable mass or hepatosplenomegaly Genitourinary exam: Normal male with Solis catheter in place Objective Labs 06/26/22 21:05 06/27/22 00:58 Labs: Laboratory Results - last 24 hr 06/26/22 06/26/22 06/26/22 21:05 21:05 21:05 WBC 7.9 RBC 4.96 Hgb 15.4 Hct 45.2 MCV 91.1 MCH 31.1 MCHC 34.2 RDW 13.5 Plt Count 184 Neut % (Auto) 71.2 Lymph % (Auto) 12.8 L [place] % (Auto) 11.7 Eos % (Auto) 2.3 Baso % (Auto) 2.0 Neut # (Auto) 5600 Lymph # (Auto) 1000 L [place] # (Auto) 900 Eos # (Auto) 200 Baso # (Auto) 200 H PT 13.8 H INR 1.2 APTT 32 D-Dimer Sodium 137 Potassium 4.2 Chloride 106 Carbon Dioxide 18 L BUN 51 H Creatinine 4.87 H Estimated GFR 11 L BUN/Creatinine Ratio 10.5 Glucose 121 H Lactate Calcium 8.9 Magnesium 2.0 Total Bilirubin 0.6 AST 23 ALT 26 Alkaline Phosphatase 52 Total Creatine Kinase 162 CK-MB (CK-2) 2.80 H CK-MB (CK-2) Rel Index 1.7 Troponin I 0.017 Total Protein 7.6 Albumin 4.0 Globulin 3.6 Albumin/Globulin Ratio 1.1 Lipase 318 H Urine Color Urine Appearance Urine pH Ur Specific [place] Urine Protein Urine Glucose (UA) Urine Ketones Urine Occult Blood Urine Nitrate Urine Bilirubin Urine Urobilinogen Ur Leukocyte Esterase Urine RBC Urine WBC Calcium Oxalate Crystal Urine Bacteria Ur Culture Indicated? Ur Random Sodium Urine Creatinine SARS-CoV-2 (PCR) 06/26/22 06/26/22 06/26/22 21:05 21:05 22:32 WBC RBC Hgb Hct MCV MCH MCHC RDW Plt Count Neut % (Auto) Lymph % (Auto) [place] % (Auto) Eos % (Auto) Baso % (Auto) Neut # (Auto) Lymph # (Auto) [place] # (Auto) Eos # (Auto) Baso # (Auto) PT INR APTT D-Dimer 23791 H Sodium Potassium Chloride Carbon Dioxide BUN Creatinine Estimated GFR BUN/Creatinine Ratio Glucose Lactate 1.5 Calcium Magnesium Total Bilirubin AST ALT Alkaline Phosphatase Total Creatine Kinase CK-MB (CK-2) CK-MB (CK-2) Rel Index Troponin I Total Protein Albumin Globulin Albumin/Globulin Ratio Lipase Urine Color Urine Appearance Urine pH Ur Specific [place] Urine Protein Urine Glucose (UA) Urine Ketones Urine Occult Blood Urine Nitrate Urine Bilirubin Urine Urobilinogen Ur Leukocyte Esterase Urine RBC Urine WBC Calcium Oxalate Crystal Urine Bacteria Ur Culture Indicated? Ur Random Sodium Urine Creatinine SARS-CoV-2 (PCR) Negative 06/26/22 06/26/22 06/27/22 23:41 23:42 00:58 WBC RBC Hgb Hct MCV MCH MCHC RDW Plt Count Neut % (Auto) Lymph % (Auto) [place] % (Auto) Eos % (Auto) Baso % (Auto) Neut # (Auto) Lymph # (Auto) [place] # (Auto) Eos # (Auto) Baso # (Auto) PT INR APTT D-Dimer Sodium 138 Potassium 3.5 Chloride 109 H Carbon Dioxide 19 L BUN 48 H Creatinine 4.46 H Estimated GFR 12 L BUN/Creatinine Ratio 10.8 Glucose 91 Lactate Calcium 7.6 L Magnesium Total Bilirubin AST ALT Alkaline Phosphatase Total Creatine Kinase CK-MB (CK-2) CK-MB (CK-2) Rel Index Troponin I Total Protein Albumin Globulin Albumin/Globulin Ratio Lipase Urine Color Yellow Urine Appearance Clear Urine pH 5.5 Ur Specific [place] 1.025 Urine Protein 1+ H Urine Glucose (UA) Negative Urine Ketones Negative Urine Occult Blood 3+ H Urine Nitrate Negative Urine Bilirubin Negative Urine Urobilinogen 0.2 Ur Leukocyte Esterase 1+ H Urine RBC 30-100/hpf H Urine WBC 5-10/hpf H Calcium Oxalate Crystal Occasional H Urine Bacteria None seen Ur Culture Indicated? Specimen cultured Ur Random Sodium 64 Urine Creatinine 130.6 SARS-CoV-2 (PCR) [facility] Medical History (Updated 06/27/22 @ 03:19 by Eros Koo MD) Acute renal insufficiency Benign prostatic hyperplasia Bilateral hydronephrosis Bilateral renal stones Elevated serum creatinine Lower urinary tract symptoms Assessment & Plan Assessment and plan (1) Bilateral renal stones: Status: Acute (2) Bilateral hydronephrosis: Status: Acute (3) Acute renal insufficiency: Status: Acute (4) Elevated serum creatinine: Status: Acute (5) Lower urinary tract symptoms: Status: Acute (6) Benign prostatic hyperplasia: Qualifiers: Lower urinary tract symptom presence: symptoms present Lower urinary tract symptom detail: weak urinary stream Qualified Code(s): N40.1 - Benign prostatic hyperplasia with lower urinary tract symptoms; R39.12 - Poor urinary stream Status: Acute Plan Assessment and plan: Patient with bilateral obstruction bilateral hydronephrosis. The right-sided process has given the patient renal parenchymal thinning patient has a markedly elevated creatinine and plan would be for cystoscopy with bilateral stent placement the patient has been admitted by the hospitalist and will go to their care after the procedure. We would have him follow-up as an outpatient once his current medical issues are resolved. Time Spent With Patient Time with patient: 30 to 49 minutes with 50% spent counseling/coordinating care
--- NOTE | 2022-06-27 03:20 | PM.PREOP ---
Pre-operative Note COVID-19 COVID-19 status: Not tested Criteria for continued procedure: Delay expected to result in less-positive ultimate med/surg outcome and Non-surgical alternatives not available or appropriate per current SOC Interval Note History & Physical reviewed/Exam performed by Physician: Yes Changes to H&P: No
--- NOTE | 2022-06-27 03:59 | PM.HP.1 ---
History of Present Illness History of Present Illness Date Patient Seen: 06/27/22 Time Patient Seen: 03:00 Chief complaint: Bilateral ureteral obstruction Narrative: Mr. Higgins is an 82M with H BPH who presents to the hospital after having been found to have an elevated d-dimer. He primarily states that he has noted some lower left sided abdominal and flank pain. This has been happening over the last 5 days. He has not really had much shortness of breath, perhaps some transiently earlier today. He has been in [place] and flew back a week ago. He has no lower extremity swelling or pain. He currently has no shortness of breath. No chest pain. In the ED workup was done, vitals notable for afebrile, heart rate in 60s, respiratory rate 16, blood pressure 120s/70s, sats 96% on room air. Labs reviewed by me and notable for WBC 7.9, hgb 15.4, plts 184. Na 138, k 3.5, cl 109, co2 18, BUN 51, creatinine 4.87, trop 0.017. d-dimer 93716. Lactate 1.5. After fluids creatinine improved to 4.46. Chamberlain was placed with immediate return of urine which was grossly bloody. CT scan was ordered and reviewed by me and notable for bilateral hydronephrosis right worse than left with large 2cm kidney stone obstructing the ureterovesicular junction, and 7mm stone obstructing the left ureter. Urology was called who planned for stent placement for obstructing stones. He was admitted for further treatment of his renal failure. [facility] Medical History Acute renal insufficiency Benign prostatic hyperplasia Bilateral hydronephrosis Bilateral renal stones Elevated serum creatinine Lower urinary tract symptoms Social History household members: spouse Smoking Status: Never smoker alcohol intake: never Meds Home Medications and Allergies Home Medications Medication Instructions Recorded Confirmed Type ASPIRIN (Aspirin Low Dose) 162 mg PO ##0 10/23/06 History [LOVASTATIN] ##0 10/23/06 History Allergies Allergy/AdvReac Type Severity Reaction Status Date / Time No Known Drug Allergies Allergy Verified 06/26/22 23:20 Review of Systems Review of Systems Narrative: 14 systems reviewed and negative aside from what is noted in HPI Exam Vital Signs (past 8 hours): - 06/26/22 20:55 06/26/22 22:14 06/26/22 22:36 Temperature 98.3 F Pulse Rate 70 62 65 Respiratory Rate 16 16 23 Blood Pressure 129/74 131/71 Pulse Oximetry 96 97 96 Oxygen Delivery Method Room Air Room Air 06/26/22 23:00 06/26/22 23:00 06/26/22 23:30 Temperature Pulse Rate 61 70 Respiratory Rate 23 20 Blood Pressure 124/79 Pulse Oximetry 96 94 Oxygen Delivery Method 06/27/22 01:46 06/27/22 02:00 06/27/22 02:00 Temperature Pulse Rate 63 63 Respiratory Rate 22 18 Blood Pressure 126/74 Pulse Oximetry 93 94 Oxygen Delivery Method 06/27/22 02:30 06/27/22 03:00 06/27/22 03:00 Temperature Pulse Rate 62 67 Respiratory Rate 23 20 Blood Pressure 141/67 H Pulse Oximetry 94 95 Oxygen Delivery Method 06/27/22 03:42 Temperature 98.9 F Pulse Rate 64 Respiratory Rate 17 Blood Pressure 129/75 Pulse Oximetry 97 Oxygen Delivery Method Room Air Oxygen Delivery Method Room Air Narrative Exam Narrative: GEN: no acute distress HEENT: moist mucous membranes, PERRL NECK: trachea midline, no JVD PULM: clear bilaterally, no wheezes, rhonchi, rales CV: regular rate and rhythm, no murmurs ABD: soft, nontender, nondistended, no organomegaly EXT: warm and well perfused with no edema NEURO: awake, alert, oriented, no focal deficits Objective Labs 06/26/22 21:05 06/27/22 00:58 Labs: Laboratory Results - last 24 hr 06/26/22 06/26/22 06/26/22 21:05 21:05 21:05 WBC 7.9 RBC 4.96 Hgb 15.4 Hct 45.2 MCV 91.1 MCH 31.1 MCHC 34.2 RDW 13.5 Plt Count 184 Neut % (Auto) 71.2 Lymph % (Auto) 12.8 L [place] % (Auto) 11.7 Eos % (Auto) 2.3 Baso % (Auto) 2.0 Neut # (Auto) 5600 Lymph # (Auto) 1000 L [place] # (Auto) 900 Eos # (Auto) 200 Baso # (Auto) 200 H PT 13.8 H INR 1.2 APTT 32 D-Dimer Sodium 137 Potassium 4.2 Chloride 106 Carbon Dioxide 18 L BUN 51 H Creatinine 4.87 H Estimated GFR 11 L BUN/Creatinine Ratio 10.5 Glucose 121 H Lactate Calcium 8.9 Magnesium 2.0 Total Bilirubin 0.6 AST 23 ALT 26 Alkaline Phosphatase 52 Total Creatine Kinase 162 CK-MB (CK-2) 2.80 H CK-MB (CK-2) Rel Index 1.7 Troponin I 0.017 Total Protein 7.6 Albumin 4.0 Globulin 3.6 Albumin/Globulin Ratio 1.1 Lipase 318 H Urine Color Urine Appearance Urine pH Ur Specific [place] Urine Protein Urine Glucose (UA) Urine Ketones Urine Occult Blood Urine Nitrate Urine Bilirubin Urine Urobilinogen Ur Leukocyte Esterase Urine RBC Urine WBC Calcium Oxalate Crystal Urine Bacteria Ur Culture Indicated? Ur Random Sodium Urine Creatinine SARS-CoV-2 (PCR) 06/26/22 06/26/22 06/26/22 21:05 21:05 22:32 WBC RBC Hgb Hct MCV MCH MCHC RDW Plt Count Neut % (Auto) Lymph % (Auto) [place] % (Auto) Eos % (Auto) Baso % (Auto) Neut # (Auto) Lymph # (Auto) [place] # (Auto) Eos # (Auto) Baso # (Auto) PT INR APTT D-Dimer 90365 H Sodium Potassium Chloride Carbon Dioxide BUN Creatinine Estimated GFR BUN/Creatinine Ratio Glucose Lactate 1.5 Calcium Magnesium Total Bilirubin AST ALT Alkaline Phosphatase Total Creatine Kinase CK-MB (CK-2) CK-MB (CK-2) Rel Index Troponin I Total Protein Albumin Globulin Albumin/Globulin Ratio Lipase Urine Color Urine Appearance Urine pH Ur Specific [place] Urine Protein Urine Glucose (UA) Urine Ketones Urine Occult Blood Urine Nitrate Urine Bilirubin Urine Urobilinogen Ur Leukocyte Esterase Urine RBC Urine WBC Calcium Oxalate Crystal Urine Bacteria Ur Culture Indicated? Ur Random Sodium Urine Creatinine SARS-CoV-2 (PCR) Negative 06/26/22 06/26/22 06/27/22 23:41 23:42 00:58 WBC RBC Hgb Hct MCV MCH MCHC RDW Plt Count Neut % (Auto) Lymph % (Auto) [place] % (Auto) Eos % (Auto) Baso % (Auto) Neut # (Auto) Lymph # (Auto) [place] # (Auto) Eos # (Auto) Baso # (Auto) PT INR APTT D-Dimer Sodium 138 Potassium 3.5 Chloride 109 H Carbon Dioxide 19 L BUN 48 H Creatinine 4.46 H Estimated GFR 12 L BUN/Creatinine Ratio 10.8 Glucose 91 Lactate Calcium 7.6 L Magnesium Total Bilirubin AST ALT Alkaline Phosphatase Total Creatine Kinase CK-MB (CK-2) CK-MB (CK-2) Rel Index Troponin I Total Protein Albumin Globulin Albumin/Globulin Ratio Lipase Urine Color Yellow Urine Appearance Clear Urine pH 5.5 Ur Specific [place] 1.025 Urine Protein 1+ H Urine Glucose (UA) Negative Urine Ketones Negative Urine Occult Blood 3+ H Urine Nitrate Negative Urine Bilirubin Negative Urine Urobilinogen 0.2 Ur Leukocyte Esterase 1+ H Urine RBC 30-100/hpf H Urine WBC 5-10/hpf H Calcium Oxalate Crystal Occasional H Urine Bacteria None seen Ur Culture Indicated? Specimen cultured Ur Random Sodium 64 Urine Creatinine 130.6 SARS-CoV-2 (PCR) Assessment & Plan Assessment & Plan narrative: 1. 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 Elevated d-dimer -have lower suspicion for PE, no current shortness of breath, no tachycardia, no chest pain -Wells score 0, PERC score of 1 -maybe be secondary to renal clearance -if creatinine improving could completely rule out PE with CTA, however currently patient having gross hematuria which would preculde heparin, likely from kidney stones 3. BPH -has chamberlain, had mild urinary retention on admission I have discussed plan and obtained history from patient. I have discussed plan of care with ED physician and bedside nurse. I have reviewed labs and imaging. CODE: Full Proxy: Katherin Higgins, spouse Quality [facility] Meds 'Current medications' to include all prescriptions, [id number] products, herbals, cannabis/cannabidiol products, and vitamin/mineral/dietary (nutritional) supplements. I have utilized all available resources to obtain, update, or review the patient?s current medications. [If Yes, STOP here]: Yes
[2022-06-27] MEDS: CEFAZOLIN 2 GM/100 ML PREMIX 100 ML IV (04:00)
[2022-06-27] MEDS: IOPAMIDOL 30 ML VIAL INJ (04:30)
--- NOTE | 2022-06-27 04:37 | SUR.OPER ---
Lithotomy on padded OR bed, head on pillow, arms secured on padded arm boards at <90 degrees abduction. Legs secured in padded yellow fins stirrups.
--- NOTE | 2022-06-27 04:56 | PM.OP.1 ---
Procedure & Clinicians Procedure: Cystoscopy with bilateral ureteral stent placement and retrograde pyelogram left Same procedure as scheduled: Yes Indications: This is an 82-year-old gentleman who presented to the emergency department with a markedly elevated creatinine was found to have bilateral ureteral obstruction and hydronephrosis who presents at this time for cystoscopy with bilateral stent placement to relieve the obstruction. Surgeon: Eros Koo Click Yes if Unassisted: Yes Anesthesia Type: General Operative Notes Findings: Urethra and urethral meatus were normal with some inflammatory changes from a Solis catheter being in place in the urethra. Sphincter as well coapted prostate shows moderate to severe obstructive character with a preponderance of serpiginous varices that extended somewhat into the bladder the ureteral orifices were in proximally normal position. There were no mucosal lesions in the bladder the urine was somewhat bloody so definitive comment can not be made on the entire bladder. But no tumors were observed. On the left retrograde pyelogram was performed and showed that with the wire placement the stone had been moved back into the renal pelvis. And the collecting system was somewhat decompressed the urine was bloody coming from the left ureteral orifice. The stent was placed into good position with the guidance of the contrast on the left the string was removed. On the right the large stone was observed and again couple of other stones as were noted on the imaging (CT scan). No other abnormalities were noted. Both stents were left in good position with efflux from both. Closure Type: not applicable Specimen(s): none sent Prosthetic devices, grafts, tissues, transplants, or devices: Seven Angolan by multi length stent right and left without a string 20 Angolan coude-tip catheter 10 cc in the balloon left in the bladder to gravity drainage Applied: catheter (Twenty-two Angolan [address] coude-tip catheter in the bladder 10 cc in the balloon) and other (Seven Angolan by multi length stent right and left collecting system no string) Estimated Blood Loss (mL): 10 Blood products transfused: none Procedure in detail: Procedure in detail: After informed consent was obtained, the patient was identified and brought to the operating room where he was placed in a supine position on the table and anesthesia was induced and maintained. Ensuring an adequate level of anesthesia the patient was transitioned to the lithotomy position where he was prepped, draped and prepared for Transurethral procedure. After prepping, draping coming ensuring an adequate level of anesthesia and time-out a 22 Angolan cystoscope was passed through the urethra and into the bladder where cystoscopy was performed small clot was evacuated. The left ureteral orifice was identified and the guidewire passed up in the collecting system. By fluoroscopy it appeared to be in some of an odd position therefore a Charleston catheter was passed over the wire left in place the wire was removed and retrograde pyelogram was performed to discern the anatomy. The collecting system was filled with contrast the anatomy was defined and the wire passed back up through the Solis catheter the Charleston catheter backed out stent passed over the wire and a coaxial fashion and positioned in the renal pelvis under fluoroscopic visualization and in the bladder under direct vision. The wire was removed. Grasping forceps was inserted and the nylon harness removed. The left stent was left in good position again bloody efflux was noted attention was then turned to the right side the right ureteral orifice identified and with the aid of a Charleston catheter the ureteral orifice was accessed and the wire and Charleston catheter passed up the level of the large stone. The wire and Charleston catheter went easily past the stone. The Charleston catheter was backed out and the stent passed over the wire in a coaxial fashion position renal pelvis under fluoroscopic visualization and in the bladder under direct vision once again the wire was removed grasping forceps was inserted and the nylon harness for the right ureteral stent was removed using fluoroscopy the position of the stent in the renal pelvis right and left was once again confirmed architectural representative images collected. The position of the bladder was once again confirmed the bladder was left full the scope was removed and the 20 Angolan catheter was passed through the urethra prostate and into the bladder where the balloon was filled with 10 cc of sterile water in the catheter was placed to gravity drainage. The patient was then awakened and transferred to the postanesthesia care unit for recovery. The patient tolerated the procedure well and there were no complications. The patient has been admitted by the hospitalist and orders and care will be provided by the hospitalist. Once his present issues are resolved the patient will follow-up in my office as an outpatient. Complications: none Post-operative Condition: stable Disposition: PACU Plan for aftercare: Patient once he is recovered will be transferred to the emergency department under the care of the hospitalist and then to acute care once a bed is available.
--- NOTE | 2022-06-27 04:56 | PC.NURSE ---
Pt to OR 1817
--- NOTE | 2022-06-27 05:10 | SUR.PHASEI ---
Patient to recovery room in stable condition; vss; abdomen soft; in no distress; denies pain or nausea.
[2022-06-27] MEDS: LACTATED RINGERS 1,000 ML 42 ML IV (05:12)
[2022-06-27] MEDS: SODIUM CHLORIDE 0.9% 1,000 ML 100 ML IV ×2 (05:49→23:52)
[2022-06-27 07:05] LABS: Add Manual Diff / Slide Review NO; Basophils Absolute Auto 0 /uL (0-100); Basophils Percent Auto 0.5 % (0-2); Eosinophils Absolute Auto 100 /uL (0-450); Eosinophils Percent Auto 1.3 % (2-4); Hematocrit 43.4 % (41-53); Hemoglobin 14.6 g/dL (13.5-17.5); Lymphocytes Absolute Auto 600 /uL (1100-4500); Lymphocytes Percent Auto 7.2 % (25-40); Mean Corpuscular HGB Conc 33.6 % (30-36); Mean Corpuscular Hemoglobin 30.9 PG (26-34); Monocytes Absolute Auto 300 /uL (0-900); Neutrophils Absolute Auto 7100 /uL (1500-7000); Platelet Count 173 X10^3/uL (150-400); Red Blood Cell Count 4.71 X10^6/uL (4.5-5.9); Red Cell Distribution Width 13.7 % (11.6-14.8); White Blood Cell Count 8.2 X10^3/uL (4.5-11.0)
[2022-06-27 07:16] LABS: Blood Urea Nitrogen 43 mg/dL (9-20); Calcium 8.3 mg/dL (8.4-10.2); Carbon Dioxide 19 mmol/L (22-32); Chloride 108 mmol/L (98-107); Estimated Glomerular Filt Rate 14 mL/min (>60); Glucose 106 mg/dL (80-110); HEMOLYSIS < 15 (0-50); Potassium 3.9 mmol/L (3.4-5.1); Sodium 139 mmol/L (137-145)
[2022-06-27] MEDS: OXYCODONE IR 5 MG TABLET PO (21:26)
[2022-06-28] VITALS (7 sets, daily range): BP systolic 117–128; BP diastolic 63–70; PULSE 55–66; RESP 17–20; TEMP 36.4–37.2; O2SAT 95–977
[2022-06-28] MEDS: SODIUM CHLORIDE 0.9% 1,000 ML 100 ML IV (09:27)
[2022-06-28 10:06] LABS: BUN Creatinine Ratio 17.1 (6-22); Blood Urea Nitrogen 25 mg/dL (9-20); Calcium 8.8 mg/dL (8.4-10.2); Carbon Dioxide 25 mmol/L (22-32); Chloride 107 mmol/L (98-107); Estimated Glomerular Filt Rate 47 mL/min (>60); Glucose 112 mg/dL (80-110); HEMOLYSIS < 15 (0-50); Potassium 4.1 mmol/L (3.4-5.1); Sodium 138 mmol/L (137-145)
--- NOTE | 2022-06-28 11:32 | PM.DS.1 ---
History of Present Illness History of Present Illness Date Patient Seen: 06/28/22 Time Patient Seen: 11:33 Chief complaint: Bilateral ureteral obstruction Narrative: Per admitting provider, Mr. Higgins is an 82M with PMH BPH who presents to the hospital after having been found to have an elevated d-dimer. He primarily states that he has noted some lower left sided abdominal and flank pain. This has been happening over the last 5 days. He has not really had much shortness of breath, perhaps some transiently earlier today. He has been in [place] and flew back a week ago. He has no lower extremity swelling or pain. He currently has no shortness of breath. No chest pain. In the ED workup was done, vitals notable for afebrile, heart rate in 60s, respiratory rate 16, blood pressure 120s/70s, sats 96% on room air. Labs reviewed by me and notable for WBC 7.9, hgb 15.4, plts 184. Na 138, k 3.5, cl 109, co2 18, BUN 51, creatinine 4.87, trop 0.017. d-dimer 01712. Lactate 1.5. After fluids creatinine improved to 4.46. Chamberlain was placed with immediate return of urine which was grossly bloody. CT scan was ordered and reviewed by me and notable for bilateral hydronephrosis right worse than left with large 2cm kidney stone obstructing the ureterovesicular junction, and 7mm stone obstructing the left ureter. Urology was called who planned for stent placement for obstructing stones. He was admitted for further treatment of his renal failure. Discharge Providers Provider Date of admission: 06/27/22 03:01 Discharge Date: 06/28/22 Primary care physician: Mayda Rodriguez PA-C Discharge provider: Jean Pierre Balbuena DO Summary Hospital Course Discharge Diagnosis: 1. GUS secondary to bilateral obstructing kidney stones with hematuria 2. Elevated d-dimer 3. BPH Hospital Course: This is a 82 year old gentlman with PMH of BPH sent to the ER for an elevated D-dimer by his PCP office. He had no respiratory symptoms or leg swelling or pain, but did report a left flank pain a few days ago. Labs showed a creatinine on presentation of 4.87. CT scan showed bilateral hydronephrosis with obstructing stones. He underwent bilateral ureteral stent placement with urology. He was given IV fluids with rapid improvement in creatinine to 1.46 on hospital day 1. He improved much more quickly than expected and he was feeling well without complaints. Urology recommended patient leave chamberlain in place and can follow up with their clinic next week for further management of his nephrolithiasis and ureteral stents. He will remain on flomax as well. Urine cultures were negative from his initial urinalysis. For his D-dimer, this was likely elevated in the setting of his acute renal failure. Given no hypoxia, shortness of breath, leg swelling, or pain further imaging was not persued. I do recommend repeat lab evaluation of D-dimer in a week or two with PCP office to check that there has been improvement. No changes are recommended to his home medications at the time of discharge. He was instructed to follow his urine output at home and contact urology office should output be >3L over 24 hours for two consecutive days in case of post obstructive diuresis. Time Spent with Patient Time spent: Greater than 30 minutes Exam Vital Signs (past 8 hours): - 06/28/22 04:00 06/28/22 05:00 06/28/22 08:52 Temperature 97.5 F L 98.2 F Pulse Rate 55 L 63 Respiratory Rate 17 18 Blood Pressure 124/66 128/70 Pulse Oximetry 95 97 96 Oxygen Delivery Method Room Air Oxygen Flow Rate 0 06/28/22 09:00 06/28/22 09:00 Temperature Pulse Rate Respiratory Rate Blood Pressure Pulse Oximetry 96 Oxygen Delivery Method Room Air Room Air Oxygen Flow Rate Oxygen Delivery Method Room Air Oxygen Flow Rate 0 Narrative Exam Narrative: GEN: no acute distress HEENT: moist mucous membranes, PERRL NECK: trachea midline, no JVD PULM: clear bilaterally, no wheezes, rhonchi, rales CV: regular rate and rhythm, no murmurs ABD: soft, nontender, nondistended, no organomegaly EXT: warm and well perfused with no edema NEURO: awake, alert, oriented, no focal deficits Objective Labs 06/27/22 06:52 06/28/22 09:31 Labs: Laboratory Results - last 24 hr 06/28/22 09:31 Sodium 138 Potassium 4.1 Chloride 107 Carbon Dioxide 25 BUN 25 H Creatinine 1.46 H Estimated GFR 47 L BUN/Creatinine Ratio 17.1 Glucose 112 H Calcium 8.8 [facility] Medical History Acute renal insufficiency Benign prostatic hyperplasia Bilateral hydronephrosis Bilateral renal stones Elevated serum creatinine Lower urinary tract symptoms Social History household members: spouse Smoking Status: Never smoker alcohol intake: never Discharge Plan Discharge Plan Patient Disposition: Home Provider Discharge Comment: You were admitted to the hospital with kidney stones that blocked both ureters (tube than connects your kidney to bladder). A stent was put in by the urologist (dr. koo) to relieve the obstruction. There are still interventions that need to be done, but this can be done as an outpatient and the urology clinic will call you this week sometime with a follow up appointment. Chamberlain to remain in place until your follow up visit. Please watch and record the output (in liters), and if excessive (more than 3L in 24 hours for 2 days) please call urology office for further advice. I do recommend follow up with your PCP clinic, to recheck D-dimer (a blood test) in about 1 week to make sure it is improving after stent placement, as that is the most likely cause of the elevation at this time. Discharge orders & Medications Prescriptions: Continued ASPIRIN (Aspirin Low Dose) 81 mg PO DAILY Qty: 0 Rx Instructions: takes at night tadalafil 5 mg tablet 5 mg PO DAILY Patient Comments: TAKE ONE TABLET BY MOUTH ONE TIME DAILY Rx Instructions: takes at night multivitamin Tablet 1 tab PO DAILY Rx Instructions: takes at night lovastatin 40 mg Tablet 40 mg PO QPM tamsulosin 0.4 mg Capsule 0.4 mg PO BEDTIME levothyroxine 50 mcg Tablet 50 mcg PO DAILY Rx Instructions: takes at night time ascorbate calcium (vitamin C) 500 mg Capsule 1,000 mg PO DAILY cholecalciferol (vitamin D3) 50 mcg (2,000 unit) Tablet 50 mcg PO DAILY Follow up/Referrals: Eros Koo MD [Physician] - 1 Week Mayda Rodriguez PA-C [Primary Care Provider] - Discharge Health Status Multidrug resistant organism: No MDRO Diet/Activity/Treatments Diet: Diet as Tolerated Activity: As tolerated Catheter: 2-way Chamberlain Skin/Wound/Dressing Care Report to your healthcare provider any signs of infection, such as:: chills, fever and increased pain Visit Report/Discharge Packet Instructions: How to Care for Your Chamberlain Catheter -- Male, DI for Ureteral Stent Placement Stand Alone Forms: Patient Portal/API, Stroke Signs & Symptoms Discharge Data Primary Care Provider: Mayda Rodriguez Discharges patient from system. Discharge Date/Time: 06/28/22 14:15 Quality VTE Deep Vein Thrombosis/Pulmonary Embolism Present on Admission: No
--- NOTE | 2022-06-28 12:13 | CM.DANOTE ---
DCP: Case reviewed, EMR reviewed and met with patient. Introduced self and role. Was able to obtain information regarding patient's baseline activity level prior to hospitalization. DCP assessment completed with information currently available. Patient is an 82 year old male who admitted yesterday morning to the care of the hospitalist team. PCP: GUSTAVO Cox at [facility]. Payer: confirmed: [facility]. Patient came to the hospital via private vehicle, sent by his primary care provider, due to his labs, elevated D-dimer. Notes indicate that patient was in [place] for the last 5 weeks, flew back about a week ago. Patient had been complaining of some shortness of breath, mostly while moving the lawn. Patient was noted to have bilateral hydronephrosis, with 2 cm kidney stone obstructing uretervesicular junction, and 7mm stone obstructing the left ureter. Urology was consulted, and patient had cystoscopy with bilateral ureteral stent placement yesterday. Met with patient in his room. He is alert and oriented, pleasant. Confirmed that he resides here in [place] with spouse. He is independent at his baseline. P: Patient has discharge orders for home today, he will follow up at urology office. Brielle Garcia RN/Set Builder Discharge Planning/Care Management CM Discharge Assessment Start: 06/28/22 12:07 Freq: Status: Active Protocol: Document 06/28/22 12:07 (Rec: 06/28/22 12:13 [id number]) Discharge Planning Assessment Assigned Business Applications Analyst Brielle Garcia RN/Set Builder Advance Directives? No History Provided By Patient,Medical Record Prior Living Arrangements House Household Members spouse Type of transporation used prior to Drives own vehicle admit Independent with ADL's Yes Is patient alert and oriented? Yes Caregiver for Another No Barriers to Discharge No Discharge Plan Home Transportation Arrangement Spouse Referrals Initiated None needed Whiteboard Updated in Patient Room with Yes name and ext. # of Business Applications Analyst Review Status In Process Next Review Type Continued Stay Review
--- NOTE | 2022-06-28 14:10 | PC.NURSE ---
Pt discharged home by private vehicle at 1400, escorted off floor in wheelchair accompanied by spouse and hospital staff. IV removed, leg bag attached to chamberlain catheter, discharge teaching provided including care of chamberlain catheter, worsening symptoms and follow up appointments. Questions answered. Patient left floor with all belongings.
== END 2022-06-28 14:15 | disposition home or self-care (01) | DRG 661 ==
LOC: ED 22:37 → AC 06-27 03:01
PROVIDERS: Internal Medicine; Urology; Admitting Provider Internal Medicine; Emergency Provider Emergency Medicine; PCP Physician Assistant; Referring Provider Emergency Medicine; Visit Provider Internal Medicine
PROC: 0T788DZ Dilation of Bilateral Ureters with Intraluminal Device, Via Natural or Artificial Opening Endoscopic (ICD-10-PCS; principal; 2022-06-27 04:00)
DX: N13.2 Hydronephrosis with renal and ureteral calculous obstruction (principal); N17.9 Acute kidney failure, unspecified; R10.9 Unspecified abdominal pain; R06.02 Shortness of breath; K59.00 Constipation, unspecified; N40.1 Benign prostatic hyperplasia with lower urinary tract symptoms; R39.12 Poor urinary stream; R79.1 Abnormal coagulation profile; Z20.822 Contact with and (suspected) exposure to COVID-19
CPT/HCPCS: 36415; 71046; 74018; 74176; 76000; 76770; 80048; 80053; 81001; 81003; 82550; 82553; 82570; 83605; 83690; 83735; 84300; 84484; 85025; 85379; 85610; 85730; 87086; 87635; 93005; 93970; 99284; 99285; C9803; J0690; J1100; J2405; J2704; J3010; J3490; Q9967

== ENCOUNTER → 2022-07-03 10:58 | Outpatient (CLI) | payer MEDICARE, SELFPAY ==
[2022-06-27 03:20] VITALS: BMI 27.9
== END ==
PROVIDERS: PCP Physician Assistant; Visit Provider Urology
DX: N13.30 Unspecified hydronephrosis (principal); N20.0 Calculus of kidney; R39.9 Unspecified symptoms and signs involving the genitourinary system
CPT/HCPCS: 51701; 87086

== ENCOUNTER 2022-07-09 21:49 | Emergency (ER) | payer MEDICARE, SELFPAY ==
[2022-06-27 03:20] VITALS: BMI 27.9
[2022-07-09 22:00] VITALS: BP 137/72; PULSE 92; RESP 18; TEMP 36.2; O2SAT 94; BMI 30.2
--- NOTE | 2022-07-09 22:47 | ED.GENADULT ---
HPI - General Adult General Chief complaint: Urogenital-Male Stated complaint: needs catheter, painful to urinate Time Seen by Provider: 07/09/22 22:25 Source: patient Mode of arrival: Ambulatory History of Present Illness HPI narrative: Patient is an 82-year-old male. Earlier today he was seen at his urologist office where he had a urinary catheter removed. That was at approximately 0830 this morning. He has been urinating throughout the day but it has been a very small amount and he is urinating very frequently. He was starting to get some lower abdominal pain so he returns to the emergency department this evening stating that he most likely needs the catheter replaced. Related Data Home Medications Medication Instructions Recorded Confirmed ASPIRIN (Aspirin Low Dose) 81 mg PO DAILY ##0 10/23/06 07/09/22 ascorbate calcium (vitamin C) 500 1,000 mg PO DAILY 06/27/22 07/09/22 mg capsule cholecalciferol (vitamin D3) 50 50 mcg PO DAILY 06/27/22 07/09/22 mcg (2,000 unit) tablet levothyroxine 50 mcg tablet 50 mcg PO DAILY 06/27/22 07/09/22 lovastatin 40 mg tablet 40 mg PO QPM 06/27/22 07/09/22 multivitamin 1 tab PO DAILY 06/27/22 07/09/22 tadalafil 5 mg tablet 5 mg PO DAILY 06/27/22 07/09/22 tamsulosin 0.4 mg capsule 0.8 mg PO DAILY 07/09/22 07/09/22 Previous Rx's Medication Instructions Recorded finasteride 5 mg tablet 5 mg PO DAILY #30 tabs 07/03/22 Allergies Allergy/AdvReac Type Severity Reaction Status Date / Time No Known Drug Allergies Allergy Verified 07/09/22 07:57 Review of Systems Constitutional Constitutional: Reports system reviewed and no additional complaints, except as documented Gastrointestinal Gastrointestinal: Reports system reviewed and no additional complaints, except as documented Genitourinary Genitourinary: Reports system reviewed and no additional complaints, except as documented Patient History Medical History Acute renal insufficiency Benign prostatic hyperplasia Bilateral hydronephrosis Bilateral renal stones Elevated serum creatinine Lower urinary tract symptoms Family History (Updated 07/02/22 @ 08:15 by Rosetta Robert LPN) Mother Hypertension Stroke Social History household members: spouse Smoking Status: Never smoker alcohol intake: never Smoking Status: Never smoker Substance Use Type: does not use Exam Initial Vital Signs Initial Vital Signs: Vital Signs Temperature 97.2 F L 07/09/22 22:00 Pulse Rate 92 H 07/09/22 22:00 Respiratory Rate 18 07/09/22 22:00 Blood Pressure 137/72 07/09/22 22:00 Pulse Oximetry 94 07/09/22 22:00 Oxygen Delivery Method Room Air 07/09/22 22:00 Resp Effort & Inspection: normal respiratory effort GI Inspection: non-distended Other: Urinary catheter in place Course Vital Signs Vital signs: Vital Signs - 8 hr 07/09/22 22:00 07/09/22 22:54 Temperature 97.2 F L Pulse Rate 92 H 57 L Respiratory Rate 18 18 Blood Pressure 137/72 139/80 Pulse Oximetry 94 98 Oxygen Delivery Method Room Air Room Air Medical Decision Making MDM Narrative Medical decision making narrative: Patient feels much better after catheter was placed. Had a return of approximately 800 cc of urine. In his flowing well. We will leave the catheter in place. He has a follow-up with his urologist already scheduled for tomorrow morning. He was instructed to keep that appointment. He was given return precautions. He expressed understanding and agreement with plan. Discharge Plan Departure Patient Disposition: Home Clinical Impression: Acute urinary retention Instructions: DI for Urinary Retention in Men Activity Restrictions/Additional Instructions: I recommend that you keep your follow-up appointment with Urology that has already scheduled for tomorrow. Return to the emergency department for new or worsening symptoms. Prescriptions: No Action ASPIRIN (Aspirin Low Dose) 81 mg PO DAILY Qty: 0 Rx Instructions: takes at night tadalafil 5 mg tablet 5 mg PO DAILY Patient Comments: TAKE ONE TABLET BY MOUTH ONE TIME DAILY Rx Instructions: takes at night multivitamin Tablet 1 tab PO DAILY Rx Instructions: takes at night lovastatin 40 mg Tablet 40 mg PO QPM levothyroxine 50 mcg Tablet 50 mcg PO DAILY Rx Instructions: takes at night time ascorbate calcium (vitamin C) 500 mg Capsule 1,000 mg PO DAILY cholecalciferol (vitamin D3) 50 mcg (2,000 unit) Tablet 50 mcg PO DAILY tamsulosin 0.4 mg capsule 0.8 mg PO DAILY finasteride 5 mg tablet 5 mg PO DAILY Qty: 30 12RF Referrals: Mayda Rodriguez PA-C [Primary Care Provider] - Stand Alone Forms: Patient Portal/API
[2022-07-09 22:54] VITALS: BP 139/80; PULSE 57; RESP 18; O2SAT 98
== END 2022-07-09 22:54 | disposition home or self-care (01) ==
PROVIDERS: Emergency Provider Emergency Medicine; PCP Physician Assistant
DX: R33.9 Retention of urine, unspecified (principal)
CPT/HCPCS: 99283

== ENCOUNTER 2022-07-11 08:30 | Inpatient (IN) | payer MEDICARE, SELFPAY ==
[2022-06-27 03:20] VITALS: BMI 27.9
[2022-07-11] VITALS (20 sets, daily range): BP systolic 97–135; BP diastolic 56–66; PULSE 62–105; RESP 17–39; TEMP 36.7–37.8; O2SAT 93–98; BMI 25.8; BMI 24.6
--- NOTE | 2022-07-11 12:05 | DI.RAD.S_ITS ---
PROCEDURE: XR CHEST 1V INDICATIONS: suspected sepsis TECHNIQUE: One view of the chest was acquired. COMPARISON: [facility], CR, XR CHEST 2V, 06/26/2022, 15:45. FINDINGS: Limited by lordotic technique. Surgical changes and devices: None. Lungs and pleura: Lungs are clear. No pleural effusions or pneumothorax. Mediastinum: Mediastinal contours appear normal. Heart size is normal. Bones and chest wall: No suspicious bony lesions. Overlying soft tissues appear unremarkable. IMPRESSION: No acute cardiopulmonary abnormality. Dictated by: Gabriel Moss D.O. on 07/11/2022 at 11:58 Approved by: Gabriel Moss D.O. on 07/11/2022 at 11:59
[2022-07-11] MEDS: SODIUM CHLORIDE 0.9% 1,000 ML 1000 ML IV (12:36)
--- NOTE | 2022-07-11 12:59 | ED_ITS ---
HPI - Male Genitourinary <JAVI Sweeney - Last Filed: 07/11/22 15:51> General Chief complaint: Urogenital-Male Stated complaint: Poss bladder infection, Has catherer Time Seen by Provider: 07/11/22 10:17 Source: patient Mode of arrival: Ambulatory History of Present Illness HPI Narrative: 82-year-old male, former smoker with history of kidney stones and urinary retention, presents to the emergency department with suspected UTI. Patient states that he has a golf ball-sized kidney stone (7 mm) on his left side and other smaller stones on right side. Patient had 2 urinary stents placed 2 weeks ago. Solis catheter was inserted at that time and attempted to discontinue one- week later. Inability to urinate was not successful and Solis catheter replaced. Catheter was discontinued one-week later, 2 days ago, but was unable to adequately empty his bladder. Patient presented to the emergency department where a Solis catheter was placed, and 800 mL of urine drained. Patient now states that he has been having fever and chills and mild suprapubic discomfort and believes he has urinary tract infection. Related Data Home Medications Medication Instructions Recorded Confirmed ASPIRIN (Aspirin Low Dose) 81 mg PO DAILY ##0 10/23/06 07/11/22 ascorbate calcium (vitamin C) 500 1,000 mg PO DAILY 06/27/22 07/11/22 mg capsule cholecalciferol (vitamin D3) 50 50 mcg PO DAILY 06/27/22 07/11/22 mcg (2,000 unit) tablet levothyroxine 50 mcg tablet 50 mcg PO DAILY 06/27/22 07/11/22 lovastatin 40 mg tablet 40 mg PO QPM 06/27/22 07/11/22 multivitamin 1 tab PO DAILY 06/27/22 07/11/22 tadalafil 5 mg tablet 5 mg PO DAILY 06/27/22 07/11/22 tamsulosin 0.4 mg capsule 0.8 mg PO BID 07/09/22 07/11/22 Previous Rx's Medication Instructions Recorded finasteride 5 mg tablet 5 mg PO DAILY #30 tabs 07/03/22 Allergies Allergy/AdvReac Type Severity Reaction Status Date / Time No Known Drug Allergies Allergy Verified 07/11/22 09:03 Review of Systems <JAVI Sweeney - Last Filed: 07/11/22 15:51> Review of Systems Narrative: Narrative: See HPI. GENERAL: Denies fatigue and sweats. Endorses fever and chills. HEENT: Denies sinus pain, ear pain, sore throat, difficulty swallowing, dizziness. RESPIRATORY: Denies dyspnea, cough, wheezing, sputum. CARDIOVASCULAR: Denies chest pain, palpitations, edema. GASTROINTESTINAL: Denies current vomiting diarrhea, constipation. Endorses mild nausea and abdominal pain. : Denies dysuria, frequency, incontinence, hematuria, urinary retention, flank pain. Solis catheter is draining mild yellow urine without difficulty. MSK: Denies weakness, joint pain, or bony pain. SKIN: Denies rash, skin lesions, or pruritis. NEUROLOGIC: Denies weakness, dizziness, headache, numbness, confusion. PSYCHIATRIC: No concerning psychosocial issues. Patient History <JAVI Sweeney - Last Filed: 07/11/22 15:51> Medical History Acute renal insufficiency Benign prostatic hyperplasia Bilateral hydronephrosis Bilateral renal stones Elevated serum creatinine Lower urinary tract symptoms Family History Mother Hypertension Stroke Social History household members: spouse Smoking Status: Former smoker alcohol intake: current Smoking Status: Former smoker alcohol intake frequency: holidays/special occasions only Substance Use Type: does not use Exam <JAVI Sweeney - Last Filed: 07/11/22 15:51> Narrative Exam Narrative: Exam Narrative: GENERAL: This is a well-nourished, well-developed patient, in no acute distress. HEAD: Atraumatic. Normocephalic. EYES: Pupils equal round and reactive. Extraocular motions intact. No scleral icterus, injection or drainage. ENT: Nose without bleeding, purulent drainage. Throat without erythema, tonsi llar hypertrophy or exudate. Uvula midline. Airway patent. CARDIOVASCULAR: Regular rate and rhythm without murmurs, peripheral pulses intact, cap refill <2 sec. RESPIRATORY: Breath sounds equal and clear bilaterally. No wheezes, rales, or rhonchi. No cough. No increased respiratory effort. No accessory muscle use. GASTROINTESTINAL: Abdomen soft, non-tender, nondistended without guarding or re bound. Mild suprapubic discomfort. No CVA tenderness. MSK: Moves all extremities. Normal range of motion, no clubbing or edema. Neurovascularly intact. NEURO: A&O x 3. SKIN: Warm, dry, no rashes or lesions noted. Initial Vital Signs Initial Vital Signs: Vital Signs Temperature 98.3 F 07/11/22 09:03 Pulse Rate 62 07/11/22 09:03 Respiratory Rate 18 07/11/22 09:03 Blood Pressure 120/66 07/11/22 09:03 Pulse Oximetry 95 07/11/22 09:03 Oxygen Delivery Method Room Air 07/11/22 09:03 Reviewed <Teetee Allison DO - Last Filed: 07/12/22 07:01> Initial Vital Signs Initial Vital Signs: Vital Signs Temperature 98.3 F 07/11/22 09:03 Pulse Rate 62 07/11/22 09:03 Respiratory Rate 18 07/11/22 09:03 Blood Pressure 120/66 07/11/22 09:03 Pulse Oximetry 95 07/11/22 09:03 Oxygen Delivery Method Room Air 07/11/22 09:03 Course <JAVI Sweeney - Last Filed: 07/11/22 15:51> Orders Ordered: Acetaminophen (Acetaminophen 325 Mg Tablet) 650 mg PO Q6H PRN PRN Reason: Fever/Mild Pain (1-3) Last Admin: 07/11/22 23:52 Dose: 650 mg Documented By: Admin: 07/11/22 17:25 Dose: 650 mg Documented By: SB Aspirin (Aspirin 81 Mg Chew Tab) 81 mg PO DAILY [facility] Atorvastatin Calcium (Atorvastatin 20 Mg Tablet) 10 mg PO BEDTIME [facility] Last Admin: 07/11/22 21:59 Dose: 10 mg Documented By: CT Finasteride (Finasteride 5 Mg Tablet) 5 mg PO DAILY [facility] Heparin Sodium (Porcine) (Heparin 5,000 Unit/Ml Vial) 5,000 unit SUBCUT BID [facility] Last Admin: 07/11/22 22:00 Dose: 5,000 unit Documented By: CT Sodium Chloride (Normal Saline 0.9%) 1,000 mls @ 100 mls/hr IV CONT VANESSA Stop: 08/11/22 02:23 Last Admin: 07/12/22 01:58 Dose: 100 mls/hr Documented By: Infusion: 07/12/22 01:58 Dose: 100 mls/hr Documented By: Admin: 07/11/22 17:26 Dose: 100 mls/hr Documented By: LEI Ceftriaxone Sodium 1,000 mg/ (Sodium Chloride) 100 mls @ 200 mls/hr IV Q24H [facility] Levothyroxine Sodium (Levothyroxine 50 Mcg Tablet) 50 mcg PO 0600 [facility] Last Admin: 07/12/22 05:37 Dose: 50 mcg Documented By: CT Melatonin (Melatonin 3 Mg Tablet) 6 mg PO BEDTIME PRN PRN Reason: Insomnia Last Admin: 07/12/22 02:00 Dose: 6 mg Documented By: CT Multivitamins (Multivitamin 1 Tablet) 1 tab PO DAILY [facility] Naloxone HCl (Naloxone 0.4 Mg/Ml Vial) 0.2 mg IV Q2MIN PRN PRN Reason: Opiate Reversal Ondansetron HCl (Ondansetron 4 Mg/2 Ml Inj) 4 mg IV Q8HR PRN PRN Reason: Nausea And Vomiting Tamsulosin HCl (Tamsulosin 0.4 Mg Capsule) 0.4 mg PO BID [facility] Last Admin: 07/11/22 21:59 Dose: 0.4 mg Documented By: MICHELLE Discontinued Medications Acetaminophen (Acetaminophen 325 Mg Tablet) 650 mg PO NOW ONE Stop: 07/11/22 15:35 Last Admin: 07/11/22 15:47 Dose: 650 mg Documented By: DEONDRE Sodium Chloride (Normal Saline 0.9%) 1,000 mls @ 1,000 mls/hr IV BOLUS ONE Stop: 07/11/22 13:04 Last Infusion: 07/11/22 13:44 Dose: 0 mls/hr Documented By: Admin: 07/11/22 12:36 Dose: 1,000 mls/hr Documented By: SARATH Sodium Chloride (Normal Saline 0.9%) 2,381.37 mls @ 793.79 mls/hr 30 ml/kg infuse over 3 hr (2381.37 ml) IV NOW ONE Stop: 07/11/22 17:08 Last Infusion: 07/11/22 15:43 Dose: 0 mls/hr Documented By: Admin: 07/11/22 14:39 Dose: 793.79 mls/hr Documented By: DEONDRE Ceftriaxone Sodium 2,000 mg/ (Sodium Chloride) 100 mls @ 200 mls/hr IV NOW ONE Stop: 07/11/22 14:10 Last Infusion: 07/11/22 15:19 Dose: 0 mls/hr Documented By: Admin: 07/11/22 14:39 Dose: 200 mls/hr Documented By: DEONDRE Non-Formulary Medication (Aspirin (Aspirin Low Dose)) 81 mg PO DAILY [facility] Non-Formulary Medication (Lovastatin) 40 mg PO QPM [facility] Non-Formulary Medication (Multivitamin) 1 tab PO DAILY [facility] Ondansetron HCl (Ondansetron 4 Mg Odt) 4 mg SL NOW PRN PRN Reason: Nausea And Vomiting Ondansetron HCl (Ondansetron 4 Mg/2 Ml Inj) 4 mg IV NOW PRN PRN Reason: Nausea And Vomiting Consultations Consultation #1: Dr. Diaz, Urologist. If stents are in place, no surgical intervention needed. IV fluids and broad spectrum abx and admission. Consultation #2: Dr. Morales, hospitalist, accept patient for admission. Vital Signs Vital signs: Vital Signs - 8 hr 07/11/22 09:03 07/11/22 12:01 07/11/22 12:01 Temperature 98.3 F Pulse Rate 62 50 L Respiratory Rate 18 Blood Pressure 120/66 135/62 Pulse Oximetry 95 94 Oxygen Delivery Method Room Air 07/11/22 12:30 07/11/22 13:00 07/11/22 13:30 Temperature Pulse Rate 91 H 91 H 93 H Respiratory Rate 35 H 36 H Blood Pressure Pulse Oximetry 93 95 95 Oxygen Delivery Method 07/11/22 13:41 07/11/22 13:41 07/11/22 13:45 Temperature Pulse Rate 93 H 105 H Respiratory Rate 34 H 34 H Blood Pressure 102/57 L Pulse Oximetry 93 94 Oxygen Delivery Method Room Air 07/11/22 14:00 07/11/22 14:00 07/11/22 14:15 Temperature Pulse Rate 99 H 90 Respiratory Rate 37 H 35 H Blood Pressure 106/56 L Pulse Oximetry 94 94 Oxygen Delivery Method 07/11/22 14:30 07/11/22 14:45 07/11/22 14:45 Temperature Pulse Rate 87 92 H Respiratory Rate 39 H Blood Pressure 119/57 L Pulse Oximetry 96 96 Oxygen Delivery Method 07/11/22 15:00 07/11/22 15:00 07/11/22 15:15 Temperature 98.8 F Pulse Rate 88 90 Respiratory Rate 32 H 32 H Blood Pressure 109/56 L Pulse Oximetry 95 95 Oxygen Delivery Method Room Air <Teetee Allison DO - Last Filed: 07/12/22 07:01> Orders Ordered: Acetaminophen (Acetaminophen 325 Mg Tablet) 650 mg PO Q6H PRN PRN Reason: Fever/Mild Pain (1-3) Last Admin: 07/11/22 23:52 Dose: 650 mg Documented By: Admin: 07/11/22 17:25 Dose: 650 mg Documented By: SB Aspirin (Aspirin 81 Mg Chew Tab) 81 mg PO DAILY [facility] Atorvastatin Calcium (Atorvastatin 20 Mg Tablet) 10 mg PO BEDTIME [facility] Last Admin: 07/11/22 21:59 Dose: 10 mg Documented By: CT Finasteride (Finasteride 5 Mg Tablet) 5 mg PO DAILY [facility] Heparin Sodium (Porcine) (Heparin 5,000 Unit/Ml Vial) 5,000 unit SUBCUT BID [facility] Last Admin: 07/11/22 22:00 Dose: 5,000 unit Documented By: CT Sodium Chloride (Normal Saline 0.9%) 1,000 mls @ 100 mls/hr IV CONT VANESSA Stop: 08/11/22 02:23 Last Admin: 07/12/22 01:58 Dose: 100 mls/hr Documented By: Infusion: 07/12/22 01:58 Dose: 100 mls/hr Documented By: Admin: 07/11/22 17:26 Dose: 100 mls/hr Documented By: SB Ceftriaxone Sodium 1,000 mg/ (Sodium Chloride) 100 mls @ 200 mls/hr IV Q24H [facility] Levothyroxine Sodium (Levothyroxine 50 Mcg Tablet) 50 mcg PO 0600 [facility] Last Admin: 07/12/22 05:37 Dose: 50 mcg Documented By: CT Melatonin (Melatonin 3 Mg Tablet) 6 mg PO BEDTIME PRN PRN Reason: Insomnia Last Admin: 07/12/22 02:00 Dose: 6 mg Documented By: CT Multivitamins (Multivitamin 1 Tablet) 1 tab PO DAILY [facility] Naloxone HCl (Naloxone 0.4 Mg/Ml Vial) 0.2 mg IV Q2MIN PRN PRN Reason: Opiate Reversal Ondansetron HCl (Ondansetron 4 Mg/2 Ml Inj) 4 mg IV Q8HR PRN PRN Reason: Nausea And Vomiting Tamsulosin HCl (Tamsulosin 0.4 Mg Capsule) 0.4 mg PO BID VANESSA Last Admin: 07/11/22 21:59 Dose: 0.4 mg Documented By: CT Discontinued Medications Acetaminophen (Acetaminophen 325 Mg Tablet) 650 mg PO NOW ONE Stop: 07/11/22 15:35 Last Admin: 07/11/22 15:47 Dose: 650 mg Documented By: DEONDRE Sodium Chloride (Normal Saline 0.9%) 1,000 mls @ 1,000 mls/hr IV BOLUS ONE Stop: 07/11/22 13:04 Last Infusion: 07/11/22 13:44 Dose: 0 mls/hr Documented By: Admin: 07/11/22 12:36 Dose: 1,000 mls/hr Documented By: SARATH Sodium Chloride (Normal Saline 0.9%) 2,381.37 mls @ 793.79 mls/hr 30 ml/kg infuse over 3 hr (2381.37 ml) IV NOW ONE Stop: 07/11/22 17:08 Last Infusion: 07/11/22 15:43 Dose: 0 mls/hr Documented By: Admin: 07/11/22 14:39 Dose: 793.79 mls/hr Documented By: DEONDRE Ceftriaxone Sodium 2,000 mg/ (Sodium Chloride) 100 mls @ 200 mls/hr IV NOW ONE Stop: 07/11/22 14:10 Last Infusion: 07/11/22 15:19 Dose: 0 mls/hr Documented By: Admin: 07/11/22 14:39 Dose: 200 mls/hr Documented By: DEONDRE Non-Formulary Medication (Aspirin (Aspirin Low Dose)) 81 mg PO DAILY [facility] Non-Formulary Medication (Lovastatin) 40 mg PO QPM [facility] Non-Formulary Medication (Multivitamin) 1 tab PO DAILY [facility] Ondansetron HCl (Ondansetron 4 Mg Odt) 4 mg SL NOW PRN PRN Reason: Nausea And Vomiting Ondansetron HCl (Ondansetron 4 Mg/2 Ml Inj) 4 mg IV NOW PRN PRN Reason: Nausea And Vomiting Vital Signs Vital signs: Vital Signs - 8 hr 07/11/22 09:03 07/11/22 12:01 07/11/22 12:01 Temperature 98.3 F Pulse Rate 62 50 L Respiratory Rate 18 Blood Pressure 120/66 135/62 Pulse Oximetry 95 94 Oxygen Delivery Method Room Air 07/11/22 12:30 07/11/22 13:00 07/11/22 13:30 Temperature Pulse Rate 91 H 91 H 93 H Respiratory Rate 35 H 36 H Blood Pressure Pulse Oximetry 93 95 95 Oxygen Delivery Method 07/11/22 13:41 07/11/22 13:41 07/11/22 13:45 Temperature Pulse Rate 93 H 105 H Respiratory Rate 34 H 34 H Blood Pressure 102/57 L Pulse Oximetry 93 94 Oxygen Delivery Method Room Air 07/11/22 14:00 07/11/22 14:00 07/11/22 14:15 Temperature Pulse Rate 99 H 90 Respiratory Rate 37 H 35 H Blood Pressure 106/56 L Pulse Oximetry 94 94 Oxygen Delivery Method 07/11/22 14:30 07/11/22 14:45 07/11/22 14:45 Temperature Pulse Rate 87 92 H Respiratory Rate 39 H Blood Pressure 119/57 L Pulse Oximetry 96 96 Oxygen Delivery Method 07/11/22 15:00 07/11/22 15:00 07/11/22 15:15 Temperature 98.8 F Pulse Rate 88 90 Respiratory Rate 32 H 32 H Blood Pressure 109/56 L Pulse Oximetry 95 95 Oxygen Delivery Method Room Air MDM - Male Genitourinary <JAVI Sweeney - Last Filed: 07/11/22 15:51> Differential Diagnosis Differential diagnosis: Likely urinary tract infection and other (Nephrolithiasis, sepsis) Lab Data 07/12/22 06:08 07/12/22 06:08 Labs: Lab Results 07/11/22 07/11/22 07/11/22 Range/Units 13:00 13:00 13:00 WBC 13.7 H (4.5-11.0) X10^3/uL RBC 4.39 L (4.5-5.9) X10^6/uL Hgb 13.6 (13.5-17.5) g/dL Hct 39.4 L (41-53) % MCV 89.8 (80-100) fL MCH 30.9 (26-34) PG MCHC 34.4 (30-36) % RDW 13.1 (11.6-14.8) % Plt Count 184 (150-400) X10^3/uL Neut % (Auto) 90.4 H (50-75) % Lymph % (Auto) 1.4 L (25-40) % Lane % (Auto) 8.0 (3-14) % Eos % (Auto) 0.0 L (2-4) % Baso % (Auto) 0.2 (0-2) % Neut # (Auto) 62905 H (5769-5673) /uL Lymph # (Auto) 200 L (1865-9486) /uL Lane # (Auto) 1100 H (0-900) /uL Eos # (Auto) 0 (0-450) /uL Baso # (Auto) 0 (0-100) /uL PT 16.1 H (10.1-12.7) SECONDS INR 1.4 H (0.9-1.3) APTT 32 (26-36) SECONDS Sodium 130 L (137-145) mmol/L Potassium 3.8 (3.4-5.1) mmol/L Chloride 97 L (98-107) mmol/L Carbon Dioxide 24 (22-32) mmol/L BUN 34 H (9-20) mg/dL Creatinine 2.41 H (0.66-1.25) mg/dL Estimated GFR 26 L (>60) mL/min BUN/Creatinine Ratio 14.1 (6-22) Glucose 152 H (80-110) mg/dL Lactate (0.7-2.1) mmol/L Calcium 8.0 L (8.4-10.2) mg/dL Total Bilirubin 0.7 (0.2-1.3) mg/dL AST 31 (17-59) IU/L ALT 39 (<50) IU/L Alkaline Phosphatase 79 (38-126) U/L Total Creatine Kinase (55-170) U/L CK-MB (CK-2) CK-MB (CK-2) Rel Index Troponin I (0.01-0.034) ng/mL Total Protein 6.4 (6.3-8.2) g/dL Albumin 3.2 L (3.5-5.0) g/dL Globulin 3.2 (1.7-4.1) g/dL Albumin/Globulin Ratio 1.0 (1.0-2.8) Lipase 40 (23-300) U/L Procalcitonin 7.81 H (<0.5) ng/mL Urine Color Urine Appearance Urine pH (4.5-8.0) Ur Specific [place] (1.000-1.035) Urine Protein (Negative) Urine Glucose (UA) (Negative) g/dL Urine Ketones (NEGATIVE) Urine Occult Blood (Negative) Urine Nitrate (Negative) Urine Bilirubin (NEGATIVE) Urine Urobilinogen (0.2) E.U./dL Ur Leukocyte Esterase (NEGATIVE) Urine RBC (0-5/HPF) Urine WBC (0-5/HPF) Ur Squamous Epith Cells (0-5/HPF) Ur Renal Epithelial Cell (0-1/HPF) Amorphous Sediment Urine Bacteria (None) Urine Mucus (Negative) Ur Culture Indicated? A.calcoaceticus-baumannii cmplx PCR (Not Detect) Bacteroides fragilis (Not Detect) Tiana albicans (PCR) (Not Detect) Tiana auris (PCR) (Not Detect) C. glabrata (PCR) (Not Detect) C. krusei (PCR) (Not Detect) C. parapsilosis (PCR) (Not Detect) C. tropicalis (PCR) (Not Detect) SARS-CoV-2 (PCR) (Negative) C. neoform/gattii (PCR) (Not Detect) Enterobacterales (PCR) (Not Detect) E. cloacae complex PCR (Not Detect) Enterococc faecalis PCR (Not Detect) Enterococc faecium PCR (Not Detect) E. coli (PCR) (Not Detect) H. influenzae (PCR) (Not Detect) Klebsiella aerogenes (PCR) (Not Detect) Klebsiella oxytoca PCR (Not Detect) Klebsiella pneumoniae (Not Detect) List. monocytogenes PCR (Not Detect) N. meningitidis (PCR) (Not Detect) Proteus species (PCR) (Not Detect) Salmonella spp. (PCR) (Not Detect) Serratia marcescens PCR (Not Detect) Staphylococcus sp PCR (Not Detect) Staph aureus (PCR) (Not Detect) Staph epidermidis (PCR) (Not Detect) Staph lugdunensis PCR (Not Detect) S. maltophilia (PCR) (Not Detect) Streptococcus sp PCR (Not Detect) Group A Strep (PCR) (Not Detect) Strep agalactiae (PCR) (Not Detect) Strep pneumoniae (PCR) (Not Detect) P. aeruginosa (PCR) (Not Detect) blaIMP Car res Gene PCR (Not Detect) KPC-Carbap Res Gene PCR (Not Detect) blaNDM Car Res Gene PCR (Not Detect) OXA-48 Carbapenem Resis Gene (PCR) (Not Detect) blaVIM Car Res Gene PCR (Not Detect) CTX-M Gene Resistance (PCR) (Not Detect) 07/11/22 07/11/22 07/11/22 Range/Units 13:00 13:00 13:00 WBC (4.5-11.0) X10^3/uL RBC (4.5-5.9) X10^6/uL Hgb (13.5-17.5) g/dL Hct (41-53) % MCV (80-100) fL MCH (26-34) PG MCHC (30-36) % RDW (11.6-14.8) % Plt Count (150-400) X10^3/uL Neut % (Auto) (50-75) % Lymph % (Auto) (25-40) % Lane % (Auto) (3-14) % Eos % (Auto) (2-4) % Baso % (Auto) (0-2) % Neut # (Auto) (4431-0307) /uL Lymph # (Auto) (5474-9302) /uL Lane # (Auto) (0-900) /uL Eos # (Auto) (0-450) /uL Baso # (Auto) (0-100) /uL PT (10.1-12.7) SECONDS INR (0.9-1.3) APTT (26-36) SECONDS Sodium (137-145) mmol/L Potassium (3.4-5.1) mmol/L Chloride (98-107) mmol/L Carbon Dioxide (22-32) mmol/L BUN (9-20) mg/dL Creatinine (0.66-1.25) mg/dL Estimated GFR (>60) mL/min BUN/Creatinine Ratio (6-22) Glucose (80-110) mg/dL Lactate 2.2 H (0.7-2.1) mmol/L Calcium (8.4-10.2) mg/dL Total Bilirubin (0.2-1.3) mg/dL AST (17-59) IU/L ALT (<50) IU/L Alkaline Phosphatase (38-126) U/L Total Creatine Kinase 31 L (55-170) U/L CK-MB (CK-2) TNP CK-MB (CK-2) Rel Index TNP Troponin I 0.026 (0.01-0.034) ng/mL Total Protein (6.3-8.2) g/dL Albumin (3.5-5.0) g/dL Globulin (1.7-4.1) g/dL Albumin/Globulin Ratio (1.0-2.8) Lipase (23-300) U/L Procalcitonin (<0.5) ng/mL Urine Color Urine Appearance Urine pH (4.5-8.0) Ur Specific [place] (1.000-1.035) Urine Protein (Negative) Urine Glucose (UA) (Negative) g/dL Urine Ketones (NEGATIVE) Urine Occult Blood (Negative) Urine Nitrate (Negative) Urine Bilirubin (NEGATIVE) Urine Urobilinogen (0.2) E.U./dL Ur Leukocyte Esterase (NEGATIVE) Urine RBC (0-5/HPF) Urine WBC (0-5/HPF) Ur Squamous Epith Cells (0-5/HPF) Ur Renal Epithelial Cell (0-1/HPF) Amorphous Sediment Urine Bacteria (None) Urine Mucus (Negative) Ur Culture Indicated? A.calcoaceticus-baumannii cmplx PCR Not detected (Not Detect) Bacteroides fragilis Not detected (Not Detect) Tiana albicans (PCR) Not detected (Not Detect) Tiana auris (PCR) Not detected (Not Detect) C. glabrata (PCR) Not detected (Not Detect) C. krusei (PCR) Not detected (Not Detect) C. parapsilosis (PCR) Not detected (Not Detect) C. tropicalis (PCR) Not detected (Not Detect) SARS-CoV-2 (PCR) (Negative) C. neoform/gattii (PCR) Not detected (Not Detect) Enterobacterales (PCR) Detected H (Not Detect) E. cloacae complex PCR Not detected (Not Detect) Enterococc faecalis PCR Not detected (Not Detect) Enterococc faecium PCR Not detected (Not Detect) E. coli (PCR) Detected H (Not Detect) H. influenzae (PCR) Not detected (Not Detect) Klebsiella aerogenes (PCR) Not detected (Not Detect) Klebsiella oxytoca PCR Not detected (Not Detect) Klebsiella pneumoniae Not detected (Not Detect) List. monocytogenes PCR Not detected (Not Detect) N. meningitidis (PCR) Not detected (Not Detect) Proteus species (PCR) Not detected (Not Detect) Salmonella spp. (PCR) Not detected (Not Detect) Serratia marcescens PCR Not detected (Not Detect) Staphylococcus sp PCR Not detected (Not Detect) Staph aureus (PCR) Not detected (Not Detect) Staph epidermidis (PCR) Not detected (Not Detect) Staph lugdunensis PCR Not detected (Not Detect) S. maltophilia (PCR) Not detected (Not Detect) Streptococcus sp PCR Not detected (Not Detect) Group A Strep (PCR) Not detected (Not Detect) Strep agalactiae (PCR) Not detected (Not Detect) Strep pneumoniae (PCR) Not detected (Not Detect) P. aeruginosa (PCR) Not detected (Not Detect) blaIMP Car res Gene PCR Not detected (Not Detect) KPC-Carbap Res Gene PCR Not detected (Not Detect) blaNDM Car Res Gene PCR Not detected (Not Detect) OXA-48 Carbapenem Resis Gene (PCR) Not detected (Not Detect) blaVIM Car Res Gene PCR Not detected (Not Detect) CTX-M Gene Resistance (PCR) Not detected (Not Detect) 07/11/22 07/11/22 07/11/22 Range/Units 13:40 14:45 15:30 WBC (4.5-11.0) X10^3/uL RBC (4.5-5.9) X10^6/uL Hgb (13.5-17.5) g/dL Hct (41-53) % MCV (80-100) fL MCH (26-34) PG MCHC (30-36) % RDW (11.6-14.8) % Plt Count (150-400) X10^3/uL Neut % (Auto) (50-75) % Lymph % (Auto) (25-40) % Lane % (Auto) (3-14) % Eos % (Auto) (2-4) % Baso % (Auto) (0-2) % Neut # (Auto) (3188-9184) /uL Lymph # (Auto) (3581-4873) /uL Lane # (Auto) (0-900) /uL Eos # (Auto) (0-450) /uL Baso # (Auto) (0-100) /uL PT (10.1-12.7) SECONDS INR (0.9-1.3) APTT (26-36) SECONDS Sodium (137-145) mmol/L Potassium (3.4-5.1) mmol/L Chloride (98-107) mmol/L Carbon Dioxide (22-32) mmol/L BUN (9-20) mg/dL Creatinine (0.66-1.25) mg/dL Estimated GFR (>60) mL/min BUN/Creatinine Ratio (6-22) Glucose (80-110) mg/dL Lactate 1.4 (0.7-2.1) mmol/L Calcium (8.4-10.2) mg/dL Total Bilirubin (0.2-1.3) mg/dL AST (17-59) IU/L ALT (<50) IU/L Alkaline Phosphatase (38-126) U/L Total Creatine Kinase (55-170) U/L CK-MB (CK-2) CK-MB (CK-2) Rel Index Troponin I (0.01-0.034) ng/mL Total Protein (6.3-8.2) g/dL Albumin (3.5-5.0) g/dL Globulin (1.7-4.1) g/dL Albumin/Globulin Ratio (1.0-2.8) Lipase (23-300) U/L Procalcitonin (<0.5) ng/mL Urine Color Yellow Urine Appearance Cloudy Urine pH 6.0 (4.5-8.0) Ur Specific [place] 1.020 (1.000-1.035) Urine Protein 3+ H (Negative) Urine Glucose (UA) Negative (Negative) g/dL Urine Ketones Negative (NEGATIVE) Urine Occult Blood 3+ H (Negative) Urine Nitrate Positive H (Negative) Urine Bilirubin Negative (NEGATIVE) Urine Urobilinogen 0.2 (0.2) E.U./dL Ur Leukocyte Esterase 2+ H (NEGATIVE) Urine RBC 10-30/hpf H (0-5/HPF) Urine WBC 30-100/hpf H (0-5/HPF) Ur Squamous Epith Cells 0-1 /hpf (0-5/HPF) Ur Renal Epithelial Cell 0-1/hpf (0-1/HPF) Amorphous Sediment 1+ Urine Bacteria Many (>30) H (None) Urine Mucus 1+ H (Negative) Ur Culture Indicated? Specimen cultured A.calcoaceticus-baumannii cmplx PCR (Not Detect) Bacteroides fragilis (Not Detect) Tiana albicans (PCR) (Not Detect) Tiana auris (PCR) (Not Detect) C. glabrata (PCR) (Not Detect) C. krusei (PCR) (Not Detect) C. parapsilosis (PCR) (Not Detect) C. tropicalis (PCR) (Not Detect) SARS-CoV-2 (PCR) Negative (Negative) C. neoform/gattii (PCR) (Not Detect) Enterobacterales (PCR) (Not Detect) E. cloacae complex PCR (Not Detect) Enterococc faecalis PCR (Not Detect) Enterococc faecium PCR (Not Detect) E. coli (PCR) (Not Detect) H. influenzae (PCR) (Not Detect) Klebsiella aerogenes (PCR) (Not Detect) Klebsiella oxytoca PCR (Not Detect) Klebsiella pneumoniae (Not Detect) List. monocytogenes PCR (Not Detect) N. meningitidis (PCR) (Not Detect) Proteus species (PCR) (Not Detect) Salmonella spp. (PCR) (Not Detect) Serratia marcescens PCR (Not Detect) Staphylococcus sp PCR (Not Detect) Staph aureus (PCR) (Not Detect) Staph epidermidis (PCR) (Not Detect) Staph lugdunensis PCR (Not Detect) S. maltophilia (PCR) (Not Detect) Streptococcus sp PCR (Not Detect) Group A Strep (PCR) (Not Detect) Strep agalactiae (PCR) (Not Detect) Strep pneumoniae (PCR) (Not Detect) P. aeruginosa (PCR) (Not Detect) blaIMP Car res Gene PCR (Not Detect) KPC-Carbap Res Gene PCR (Not Detect) blaNDM Car Res Gene PCR (Not Detect) OXA-48 Carbapenem Resis Gene (PCR) (Not Detect) blaVIM Car Res Gene PCR (Not Detect) CTX-M Gene Resistance (PCR) (Not Detect) Imaging Data Chest x-ray: Radiologist's Impression: [address] [address] XRay Report Signed Patient: Jose Higgisn MR#: [id number] : 1940 Acct:[id number] Age/Sex: 82 / M Date of Service: 07/11/22 Loc: ED Accession Number: [id number] ?? Procedure: XR chest 1V Ordering Provider: Teetee Allison D.O. PROCEDURE:? XR CHEST 1V ? INDICATIONS:? suspected sepsis ? TECHNIQUE:? One view of the chest was acquired.? ? COMPARISON:? [facility], CR, XR CHEST 2V, 06/26/2022, 15:45. ? FINDINGS:? ? Limited by lordotic technique. ? Surgical changes and devices:? None.? ? Lungs and pleura:? Lungs are clear.? No pleural effusions or pneumothorax.? ? Mediastinum:? Mediastinal contours appear normal.? Heart size is normal.? ? Bones and chest wall:? No suspicious bony lesions.? Overlying soft tissues appear unremarkable.? ? IMPRESSION:? ? No acute cardiopulmonary abnormality. ? ? Dictated by: Gabriel Moss D.O. on 07/11/2022 at 11:58 ? ? Approved by: Gabriel Moss D.O. on 07/11/2022 at 11:59 ? CT scan - abdomen/pelvis: Radiologist's Impression: [place] [address] CT Scan Report Signed Patient: Jose Higgins MR#: [id number] : 1940 Acct:[id number] Age/Sex: 82 / M Date of Service: 07/11/22 Loc: ED Accession Number: [id number] ?? Procedure: CT kidney ureter bladder (KUB) Ordering Provider: Ruddy Hamilton PROCEDURE:? CT KIDNEY URETER BLADDER (KUB) ? INDICATIONS:? abdominal pain/ 7mm kidney stone/ sepsis ? TECHNIQUE:? Axial sections were acquired from the lung bases to the pubic symphysis.? Coron al and sagittal reformats were performed.? For radiation dose reduction, the following was used: ?automated exposure control, adjustment of mA and/or kV according to patient size.? ? COMPARISON:? [facility], CT, CT KIDNEY URETER BLADDER (KUB), 06/27/2022, 0:44. ? FINDINGS:? Image quality:? Excellent.? ? Lung bases:? Basilar atelectasis. Heart:? Advance multi-vessel coronary vascular calcifications. ? URINARY: Right Kidney/Ureter:? Extensive perinephric inflammation.? Moderate hydronephrosis decreased from prior exam.? Ureteral stent is noted coiled within the pelvis and within the bladder.? Large calcification noted within the right renal pelvis is again noted, unchanged.? Punctate nonobstructing nephrolith within the lower pole of the right kidney. ? Left Kidney/Ureter:? Extensive perinephric inflammation.? No significant hydronephrosis.? Ureteral stent is noted coiled within a renal pelvis as well as within the urinary bladder.? No left-sided calcifications are noted on today's exam. ? Bladder:? Intraluminal Solis catheter which decompresses the bladder.? No definite bladder stones.? Ureteral stents noted within the urinary bladder.? Multiple dependent foci of gas noted. ? ABDOMEN: Liver:? Unremarkable.? ? Gallbladder:? Unremarkable Biliary ducts:? Unremarkable.? ? Pancreas:? Unremarkable.? ? Spleen:? Unremarkable.? ? Adrenal Glands:? Unremarkable.? ? ? Stomach and Bowel:? Stomach, small bowel loops, and colon are unremarkable.? Peritoneum:? No abnormal intraperitoneal fluid.? No free air.? ? Ventral Wall: ? No hernia.? Abdominal Nodes:? No enlarged retroperitoneal or mesenteric lymph nodes.? Vessels:? Aorta is normal in caliber.? Diffuse vascular calcifications noted throughout the aorta and branch vessels.? Stable prominence of the common iliac arteries measuring 2.0 centimeters on the right and 1.8 centimeters on the left. ? PELVIS: Pelvic Organs:? Prostatomegaly, unchanged. Pelvic Nodes: Unremarkable. Miscellaneous:? Bilateral fat containing inguinal hernias.? Left growing postoperative clips again noted. ? Bones:? Degenerative changes of the spine and hips.? This is most pronounced at L4-L5 where there is grade 1 anterolisthesis. ? IMPRESSION:? ? Status post stent placement bilaterally with improvement of right-sided hydronephrosis, now moderate in appearance.? No significant left-sided hydronephrosis.? Large right calcification within the right renal pelvis, unchanged.? Additional punctate right lower pole nephrolith. ? Advanced coronary artery calcifications. ? Additional chronic findings as above. ? ? Dictated by: Gabriel Moss D.O. on 07/11/2022 at 13:57 ? ? Approved by: Gabriel Moss D.O. on 07/11/2022 at 14:06? MDM Narrative Medical decision making narrative: 82-year-old male that presents to the emergency department with suspected UTI. Assessment was encouraging and Solis catheter is draining adequate amounts of yellow urine. Chest x-ray was normal. Labs were concerning for sepsis with a increased BUN, creatinine, procalcitonin and lactate. Discussed case with urologist, who recommended waiting for the results of the CT KUB to determine if the urinary stents were in place. If stents were in place, no Urology surgical intervention required and would seek admission for sepsis. CT did reveal that stents were in place. Patient started on IV fluids and antibiotic therapy. Discussed case with Dr. Morales, hospitalist, who accepted admission for sepsis. <Teetee Allison, DO - Last Filed: 07/12/22 07:01> Lab Data Labs: Lab Results 07/11/22 07/11/22 07/11/22 Range/Units 13:00 13:00 13:00 WBC 13.7 H (4.5-11.0) X10^3/uL RBC 4.39 L (4.5-5.9) X10^6/uL Hgb 13.6 (13.5-17.5) g/dL Hct 39.4 L (41-53) % MCV 89.8 (80-100) fL MCH 30.9 (26-34) PG MCHC 34.4 (30-36) % RDW 13.1 (11.6-14.8) % Plt Count 184 (150-400) X10^3/uL Neut % (Auto) 90.4 H (50-75) % Lymph % (Auto) 1.4 L (25-40) % Lane % (Auto) 8.0 (3-14) % Eos % (Auto) 0.0 L (2-4) % Baso % (Auto) 0.2 (0-2) % Neut # (Auto) 31204 H (4359-3467) /uL Lymph # (Auto) 200 L (4040-3421) /uL Lane # (Auto) 1100 H (0-900) /uL Eos # (Auto) 0 (0-450) /uL Baso # (Auto) 0 (0-100) /uL PT 16.1 H (10.1-12.7) SECONDS INR 1.4 H (0.9-1.3) APTT 32 (26-36) SECONDS Sodium 130 L (137-145) mmol/L Potassium 3.8 (3.4-5.1) mmol/L Chloride 97 L (98-107) mmol/L Carbon Dioxide 24 (22-32) mmol/L BUN 34 H (9-20) mg/dL Creatinine 2.41 H (0.66-1.25) mg/dL Estimated GFR 26 L (>60) mL/min BUN/Creatinine Ratio 14.1 (6-22) Glucose 152 H (80-110) mg/dL Lactate (0.7-2.1) mmol/L Calcium 8.0 L (8.4-10.2) mg/dL Total Bilirubin 0.7 (0.2-1.3) mg/dL AST 31 (17-59) IU/L ALT 39 (<50) IU/L Alkaline Phosphatase 79 (38-126) U/L Total Creatine Kinase (55-170) U/L CK-MB (CK-2) CK-MB (CK-2) Rel Index Troponin I (0.01-0.034) ng/mL Total Protein 6.4 (6.3-8.2) g/dL Albumin 3.2 L (3.5-5.0) g/dL Globulin 3.2 (1.7-4.1) g/dL Albumin/Globulin Ratio 1.0 (1.0-2.8) Lipase 40 (23-300) U/L Procalcitonin 7.81 H (<0.5) ng/mL Urine Color Urine Appearance Urine pH (4.5-8.0) Ur Specific [place] (1.000-1.035) Urine Protein (Negative) Urine Glucose (UA) (Negative) g/dL Urine Ketones (NEGATIVE) Urine Occult Blood (Negative) Urine Nitrate (Negative) Urine Bilirubin (NEGATIVE) Urine Urobilinogen (0.2) E.U./dL Ur Leukocyte Esterase (NEGATIVE) Urine RBC (0-5/HPF) Urine WBC (0-5/HPF) Ur Squamous Epith Cells (0-5/HPF) Ur Renal Epithelial Cell (0-1/HPF) Amorphous Sediment Urine Bacteria (None) Urine Mucus (Negative) Ur Culture Indicated? A.calcoaceticus-baumannii cmplx PCR (Not Detect) Bacteroides fragilis (Not Detect) Tiana albicans (PCR) (Not Detect) Tiana auris (PCR) (Not Detect) C. glabrata (PCR) (Not Detect) C. krusei (PCR) (Not Detect) C. parapsilosis (PCR) (Not Detect) C. tropicalis (PCR) (Not Detect) SARS-CoV-2 (PCR) (Negative) C. neoform/gattii (PCR) (Not Detect) Enterobacterales (PCR) (Not Detect) E. cloacae complex PCR (Not Detect) Enterococc faecalis PCR (Not Detect) Enterococc faecium PCR (Not Detect) E. coli (PCR) (Not Detect) H. influenzae (PCR) (Not Detect) Klebsiella aerogenes (PCR) (Not Detect) Klebsiella oxytoca PCR (Not Detect) Klebsiella pneumoniae (Not Detect) List. monocytogenes PCR (Not Detect) N. meningitidis (PCR) (Not Detect) Proteus species (PCR) (Not Detect) Salmonella spp. (PCR) (Not Detect) Serratia marcescens PCR (Not Detect) Staphylococcus sp PCR (Not Detect) Staph aureus (PCR) (Not Detect) Staph epidermidis (PCR) (Not Detect) Staph lugdunensis PCR (Not Detect) S. maltophilia (PCR) (Not Detect) Streptococcus sp PCR (Not Detect) Group A Strep (PCR) (Not Detect) Strep agalactiae (PCR) (Not Detect) Strep pneumoniae (PCR) (Not Detect) P. aeruginosa (PCR) (Not Detect) blaIMP Car res Gene PCR (Not Detect) KPC-Carbap Res Gene PCR (Not Detect) blaNDM Car Res Gene PCR (Not Detect) OXA-48 Carbapenem Resis Gene (PCR) (Not Detect) blaVIM Car Res Gene PCR (Not Detect) CTX-M Gene Resistance (PCR) (Not Detect) 07/11/22 07/11/22 07/11/22 Range/Units 13:00 13:00 13:00 WBC (4.5-11.0) X10^3/uL RBC (4.5-5.9) X10^6/uL Hgb (13.5-17.5) g/dL Hct (41-53) % MCV (80-100) fL MCH (26-34) PG MCHC (30-36) % RDW (11.6-14.8) % Plt Count (150-400) X10^3/uL Neut % (Auto) (50-75) % Lymph % (Auto) (25-40) % Lane % (Auto) (3-14) % Eos % (Auto) (2-4) % Baso % (Auto) (0-2) % Neut # (Auto) (0649-7912) /uL Lymph # (Auto) (1635-2356) /uL Lane # (Auto) (0-900) /uL Eos # (Auto) (0-450) /uL Baso # (Auto) (0-100) /uL PT (10.1-12.7) SECONDS INR (0.9-1.3) APTT (26-36) SECONDS Sodium (137-145) mmol/L Potassium (3.4-5.1) mmol/L Chloride (98-107) mmol/L Carbon Dioxide (22-32) mmol/L BUN (9-20) mg/dL Creatinine (0.66-1.25) mg/dL Estimated GFR (>60) mL/min BUN/Creatinine Ratio (6-22) Glucose (80-110) mg/dL Lactate 2.2 H (0.7-2.1) mmol/L Calcium (8.4-10.2) mg/dL Total Bilirubin (0.2-1.3) mg/dL AST (17-59) IU/L ALT (<50) IU/L Alkaline Phosphatase (38-126) U/L Total Creatine Kinase 31 L (55-170) U/L CK-MB (CK-2) TNP CK-MB (CK-2) Rel Index TNP Troponin I 0.026 (0.01-0.034) ng/mL Total Protein (6.3-8.2) g/dL Albumin (3.5-5.0) g/dL Globulin (1.7-4.1) g/dL Albumin/Globulin Ratio (1.0-2.8) Lipase (23-300) U/L Procalcitonin (<0.5) ng/mL Urine Color Urine Appearance Urine pH (4.5-8.0) Ur Specific [place] (1.000-1.035) Urine Protein (Negative) Urine Glucose (UA) (Negative) g/dL Urine Ketones (NEGATIVE) Urine Occult Blood (Negative) Urine Nitrate (Negative) Urine Bilirubin (NEGATIVE) Urine Urobilinogen (0.2) E.U./dL Ur Leukocyte Esterase (NEGATIVE) Urine RBC (0-5/HPF) Urine WBC (0-5/HPF) Ur Squamous Epith Cells (0-5/HPF) Ur Renal Epithelial Cell (0-1/HPF) Amorphous Sediment Urine Bacteria (None) Urine Mucus (Negative) Ur Culture Indicated? A.calcoaceticus-baumannii cmplx PCR Not detected (Not Detect) Bacteroides fragilis Not detected (Not Detect) Tiana albicans (PCR) Not detected (Not Detect) Tiana auris (PCR) Not detected (Not Detect) C. glabrata (PCR) Not detected (Not Detect) C. krusei (PCR) Not detected (Not Detect) C. parapsilosis (PCR) Not detected (Not Detect) C. tropicalis (PCR) Not detected (Not Detect) SARS-CoV-2 (PCR) (Negative) C. neoform/gattii (PCR) Not detected (Not Detect) Enterobacterales (PCR) Detected H (Not Detect) E. cloacae complex PCR Not detected (Not Detect) Enterococc faecalis PCR Not detected (Not Detect) Enterococc faecium PCR Not detected (Not Detect) E. coli (PCR) Detected H (Not Detect) H. influenzae (PCR) Not detected (Not Detect) Klebsiella aerogenes (PCR) Not detected (Not Detect) Klebsiella oxytoca PCR Not detected (Not Detect) Klebsiella pneumoniae Not detected (Not Detect) List. monocytogenes PCR Not detected (Not Detect) N. meningitidis (PCR) Not detected (Not Detect) Proteus species (PCR) Not detected (Not Detect) Salmonella spp. (PCR) Not detected (Not Detect) Serratia marcescens PCR Not detected (Not Detect) Staphylococcus sp PCR Not detected (Not Detect) Staph aureus (PCR) Not detected (Not Detect) Staph epidermidis (PCR) Not detected (Not Detect) Staph lugdunensis PCR Not detected (Not Detect) S. maltophilia (PCR) Not detected (Not Detect) Streptococcus sp PCR Not detected (Not Detect) Group A Strep (PCR) Not detected (Not Detect) Strep agalactiae (PCR) Not detected (Not Detect) Strep pneumoniae (PCR) Not detected (Not Detect) P. aeruginosa (PCR) Not detected (Not Detect) blaIMP Car res Gene PCR Not detected (Not Detect) KPC-Carbap Res Gene PCR Not detected (Not Detect) blaNDM Car Res Gene PCR Not detected (Not Detect) OXA-48 Carbapenem Resis Gene (PCR) Not detected (Not Detect) blaVIM Car Res Gene PCR Not detected (Not Detect) CTX-M Gene Resistance (PCR) Not detected (Not Detect) 07/11/22 07/11/22 07/11/22 Range/Units 13:40 14:45 15:30 WBC (4.5-11.0) X10^3/uL RBC (4.5-5.9) X10^6/uL Hgb (13.5-17.5) g/dL Hct (41-53) % MCV (80-100) fL MCH (26-34) PG MCHC (30-36) % RDW (11.6-14.8) % Plt Count (150-400) X10^3/uL Neut % (Auto) (50-75) % Lymph % (Auto) (25-40) % Lane % (Auto) (3-14) % Eos % (Auto) (2-4) % Baso % (Auto) (0-2) % Neut # (Auto) (9253-5493) /uL Lymph # (Auto) (8098-9422) /uL Lane # (Auto) (0-900) /uL Eos # (Auto) (0-450) /uL Baso # (Auto) (0-100) /uL PT (10.1-12.7) SECONDS INR (0.9-1.3) APTT (26-36) SECONDS Sodium (137-145) mmol/L Potassium (3.4-5.1) mmol/L Chloride (98-107) mmol/L Carbon Dioxide (22-32) mmol/L BUN (9-20) mg/dL Creatinine (0.66-1.25) mg/dL Estimated GFR (>60) mL/min BUN/Creatinine Ratio (6-22) Glucose (80-110) mg/dL Lactate 1.4 (0.7-2.1) mmol/L Calcium (8.4-10.2) mg/dL Total Bilirubin (0.2-1.3) mg/dL AST (17-59) IU/L ALT (<50) IU/L Alkaline Phosphatase (38-126) U/L Total Creatine Kinase (55-170) U/L CK-MB (CK-2) CK-MB (CK-2) Rel Index Troponin I (0.01-0.034) ng/mL Total Protein (6.3-8.2) g/dL Albumin (3.5-5.0) g/dL Globulin (1.7-4.1) g/dL Albumin/Globulin Ratio (1.0-2.8) Lipase (23-300) U/L Procalcitonin (<0.5) ng/mL Urine Color Yellow Urine Appearance Cloudy Urine pH 6.0 (4.5-8.0) Ur Specific [place] 1.020 (1.000-1.035) Urine Protein 3+ H (Negative) Urine Glucose (UA) Negative (Negative) g/dL Urine Ketones Negative (NEGATIVE) Urine Occult Blood 3+ H (Negative) Urine Nitrate Positive H (Negative) Urine Bilirubin Negative (NEGATIVE) Urine Urobilinogen 0.2 (0.2) E.U./dL Ur Leukocyte Esterase 2+ H (NEGATIVE) Urine RBC 10-30/hpf H (0-5/HPF) Urine WBC 30-100/hpf H (0-5/HPF) Ur Squamous Epith Cells 0-1 /hpf (0-5/HPF) Ur Renal Epithelial Cell 0-1/hpf (0-1/HPF) Amorphous Sediment 1+ Urine Bacteria Many (>30) H (None) Urine Mucus 1+ H (Negative) Ur Culture Indicated? Specimen cultured A.calcoaceticus-baumannii cmplx PCR (Not Detect) Bacteroides fragilis (Not Detect) Tiana albicans (PCR) (Not Detect) Tiana auris (PCR) (Not Detect) C. glabrata (PCR) (Not Detect) C. krusei (PCR) (Not Detect) C. parapsilosis (PCR) (Not Detect) C. tropicalis (PCR) (Not Detect) SARS-CoV-2 (PCR) Negative (Negative) C. neoform/gattii (PCR) (Not Detect) Enterobacterales (PCR) (Not Detect) E. cloacae complex PCR (Not Detect) Enterococc faecalis PCR (Not Detect) Enterococc faecium PCR (Not Detect) E. coli (PCR) (Not Detect) H. influenzae (PCR) (Not Detect) Klebsiella aerogenes (PCR) (Not Detect) Klebsiella oxytoca PCR (Not Detect) Klebsiella pneumoniae (Not Detect) List. monocytogenes PCR (Not Detect) N. meningitidis (PCR) (Not Detect) Proteus species (PCR) (Not Detect) Salmonella spp. (PCR) (Not Detect) Serratia marcescens PCR (Not Detect) Staphylococcus sp PCR (Not Detect) Staph aureus (PCR) (Not Detect) Staph epidermidis (PCR) (Not Detect) Staph lugdunensis PCR (Not Detect) S. maltophilia (PCR) (Not Detect) Streptococcus sp PCR (Not Detect) Group A Strep (PCR) (Not Detect) Strep agalactiae (PCR) (Not Detect) Strep pneumoniae (PCR) (Not Detect) P. aeruginosa (PCR) (Not Detect) blaIMP Car res Gene PCR (Not Detect) KPC-Carbap Res Gene PCR (Not Detect) blaNDM Car Res Gene PCR (Not Detect) OXA-48 Carbapenem Resis Gene (PCR) (Not Detect) blaVIM Car Res Gene PCR (Not Detect) CTX-M Gene Resistance (PCR) (Not Detect) ECG Data Interpretation: Estefany: Sinus rhythm rate 92 OK interval 180 QRS 110 QTC [address] changes similar to prior Discharge Plan Departure Patient Disposition: Admitted As Inpatient Clinical Impression: UTI (urinary tract infection) due to urinary indwelling Solis catheter Admit Date/Time: 07/11/22 15:48 Admit Provider: Reva Morales <Teetee Allison, DO - Last Filed: 07/12/22 07:01> Cosign ED Attending Cosignature Attestation: I was immediately available in the department for consultation. Documentation has been reviewed.
[2022-07-11 13:13] LABS: Add Manual Diff / Slide Review NO; Basophils Absolute Auto 0 /uL (0-100); Basophils Percent Auto 0.2 % (0-2); Eosinophils Absolute Auto 0 /uL (0-450); Hematocrit 39.4 % (41-53); Hemoglobin 13.6 g/dL (13.5-17.5); Lymphocytes Absolute Auto 200 /uL (1100-4500); Lymphocytes Percent Auto 1.4 % (25-40); Mean Corpuscular HGB Conc 34.4 % (30-36); Mean Corpuscular Hemoglobin 30.9 PG (26-34); Mean Corpuscular Volume 89.8 fL (80-100); Monocytes Absolute Auto 1100 /uL (0-900); Neutrophils Absolute Auto 12300 /uL (1500-7000); Neutrophils Percent Auto 90.4 % (50-75); Platelet Count 184 X10^3/uL (150-400); Red Blood Cell Count 4.39 X10^6/uL (4.5-5.9); Red Cell Distribution Width 13.1 % (11.6-14.8); White Blood Cell Count 13.7 X10^3/uL (4.5-11.0)
[2022-07-11 13:23] LABS: INR 1.4 (0.9-1.3); Prothrombin Time 16.1 SECONDS (10.1-12.7)
[2022-07-11 13:26] LABS: PTT Partial Thromboplastin Tim 32 SECONDS (26-36)
[2022-07-11 13:31] LABS: Lactate (Lactic Acid) 2.2 mmol/L (0.7-2.1)
[2022-07-11 13:32] LABS: Alanine Aminotransferase 39 IU/L (<50); Albumin 3.2 g/dL (3.5-5.0); Alkaline Phosphatase 79 U/L (38-126); Aspartate Aminotransferase 31 IU/L (17-59); BUN Creatinine Ratio 14.1 (6-22); Bilirubin Total 0.7 mg/dL (0.2-1.3); Blood Urea Nitrogen 34 mg/dL (9-20); Carbon Dioxide 24 mmol/L (22-32); Chloride 97 mmol/L (98-107); Estimated Glomerular Filt Rate 26 mL/min (>60); Globulin 3.2 g/dL (1.7-4.1); Glucose 152 mg/dL (80-110); HEMOLYSIS < 15 (0-50); Lipase 40 U/L (23-300); Potassium 3.8 mmol/L (3.4-5.1); Sodium 130 mmol/L (137-145); Total Protein 6.4 g/dL (6.3-8.2)
[2022-07-11 13:48] LABS: Procalcitonin 7.81 ng/mL (<0.5)
--- NOTE | 2022-07-11 14:07 | DI.CT.S_ITS ---
PROCEDURE: CT KIDNEY URETER BLADDER (KUB) INDICATIONS: abdominal pain/ 7mm kidney stone/ sepsis TECHNIQUE: Axial sections were acquired from the lung bases to the pubic symphysis. Coronal and sagittal reformats were performed. For radiation dose reduction, the following was used: automated exposure control, adjustment of mA and/or kV according to patient size. COMPARISON: [facility], CT, CT KIDNEY URETER BLADDER (KUB), 06/27/2022, 0:44. FINDINGS: Image quality: Excellent. Lung bases: Basilar atelectasis. Heart: Advance multi-vessel coronary vascular calcifications. URINARY: Right Kidney/Ureter: Extensive perinephric inflammation. Moderate hydronephrosis decreased from prior exam. Ureteral stent is noted coiled within the pelvis and within the bladder. Large calcification noted within the right renal pelvis is again noted, unchanged. Punctate nonobstructing nephrolith within the lower pole of the right kidney. Left Kidney/Ureter: Extensive perinephric inflammation. No significant hydronephrosis. Ureteral stent is noted coiled within a renal pelvis as well as within the urinary bladder. No left-sided calcifications are noted on today's exam. Bladder: Intraluminal Solis catheter which decompresses the bladder. No definite bladder stones. Ureteral stents noted within the urinary bladder. Multiple dependent foci of gas noted. ABDOMEN: Liver: Unremarkable. Gallbladder: Unremarkable Biliary ducts: Unremarkable. Pancreas: Unremarkable. Spleen: Unremarkable. Adrenal Glands: Unremarkable. Stomach and Bowel: Stomach, small bowel loops, and colon are unremarkable. Peritoneum: No abnormal intraperitoneal fluid. No free air. Ventral Wall: No hernia. Abdominal Nodes: No enlarged retroperitoneal or mesenteric lymph nodes. Vessels: Aorta is normal in caliber. Diffuse vascular calcifications noted throughout the aorta and branch vessels. Stable prominence of the common iliac arteries measuring 2.0 centimeters on the right and 1.8 centimeters on the left. PELVIS: Pelvic Organs: Prostatomegaly, unchanged. Pelvic Nodes: Unremarkable. Miscellaneous: Bilateral fat containing inguinal hernias. Left growing postoperative clips again noted. Bones: Degenerative changes of the spine and hips. This is most pronounced at L4-L5 where there is grade 1 anterolisthesis. IMPRESSION: Status post stent placement bilaterally with improvement of right-sided hydronephrosis, now moderate in appearance. No significant left-sided hydronephrosis. Large right calcification within the right renal pelvis, unchanged. Additional punctate right lower pole nephrolith. Advanced coronary artery calcifications. Additional chronic findings as above. Dictated by: Gabriel Moss D.O. on 07/11/2022 at 13:57 Approved by: Gabriel Moss D.O. on 07/11/2022 at 14:06
[2022-07-11 14:12] LABS: Bilirubin Urine UA NEGATIVE (NEGATIVE); Color Urine UA YELLOW; Glucose Urine UA NEGATIVE (Negative); Ketones Urine UA NEGATIVE (NEGATIVE); Leukocyte Esterase Urine UA 2+ (NEGATIVE); Nitrite Urine UA POSITIVE (Negative); Occult Blood Urine UA 3+ (Negative); Protein Urine UA 3+ (Negative); Urobilinogen Urine UA 0.2 E.U./dL (0.2)
[2022-07-11 14:13] LABS: Appearance Urine UA CLOUDY
[2022-07-11 14:19] LABS: RBC Urine 10-30/HPF (0-5/HPF); Renal Epithelial Cells Urine 0-1/HPF (0-1/HPF); Squamous Epithelial Cell Urine 0-1 /HPF (0-5/HPF); WBC Urine 30-100/HPF (0-5/HPF)
[2022-07-11 14:20] LABS: Amorphous Sediment Urine 1+; Bacteria Urine Many (>30); Culture Indicated Urine Specimen Cultured; Mucus Urine 1+ (Negative)
[2022-07-11 14:36] LABS: Creatine Kinase 31 U/L (55-170)
[2022-07-11] MEDS: cefTRIAXone 2,000 MG in SODIUM CHLORIDE 0.9% 100 ML 200 MG IV (14:39)
[2022-07-11] MEDS: SODIUM CHLORIDE 0.9% 2,381.37 ML 793.79 ML IV (14:39)
[2022-07-11 14:49] LABS: Troponin I 0.026 ng/mL (0.01-0.034)
[2022-07-11 15:06] LABS: COVID19 -Nasal RAPID Negative (Negative)
[2022-07-11 15:08] LABS: Reflexed Lactate in 2 Hours Y
--- NOTE | 2022-07-11 15:43 | PC.NURSE ---
Patient ordered NS bolus based on weight for sepsis protocol, had previously received 1L NS bolus that was taken into account when initiating fluid replacement so that patient got sepsis fluid bolus total only.
[2022-07-11] MEDS: ACETAMINOPHEN 325 MG TABLET 650 MG PO ×3 (15:47→23:52)
[2022-07-11 15:48] LABS: Lactate 2HR (Lactic Acid Rflx) 1.4 mmol/L (0.7-2.1)
--- NOTE | 2022-07-11 16:30 | P.HP_ITS ---
History of Present Illness History of Present Illness Chief complaint: poss. bladder infection per pt, has catherer Narrative: 82-year-old male with BPH, hypothyroidism, hyperlipidemia, history of skin cancer, and remote history of tobacco dependence who was recently hospitalized June 27 of this year through June 28 of this year with obstructing kidney stones (7 mm obstructing stone within the left proximal ureter, associated with left-sided hydronephrosis and hydroureter, and a large right ureterovesicular junction stone causing grossly dilated right renal collecting system) with hematuria and GUS. He underwent right and left ureteral stents and coude catheter placement on June [address] Koo, urology. He followed your kind on July 02 for a voiding trial. The catheter was removed with a small amount of blood noted at the tip of the catheter. Unfortunately, he had continued urinary retention and a new Chamberlain catheter was placed. He returned on July 03 for a urine culture (which revealed no growth). Another voiding trial was initiated on July 09. He was also instructed to increase tamsulosin to 0.8 mg. He was advised to return the following day for postvoid residual. Unfortunately, he was unable to urinate more than small amount and ultimately presented to the emergency department that evening with ongoing urinary retention. A new catheter was placed with 800 cc of urine draining. He was advised to follow-up with Dr. Koo the next day. It is unclear if that follow-up visit occurred. However, today he presented to the emergency department complaining of fevers, chills, and mild suprapubic discomfort and he was concern for urinary tract infection. In the emergency department, he was afebrile. Mildly tachycardic at 92, mildly tachypneic at 32. Labs were performed which revealed a white blood cell count of 13.7, normal hemoglobin at 13.6. Protime 16.1, INR 1.4. Sodium was 130, potassium 3.8, chloride 97, bicarb 24, BUN elevated at 34 and creatinine elevated at 2.41. Previously, BUN was 25 on June 28. Creatinine had been as high as 4.87 on June 26 when he had obstructive uropathy, but had come down to 1.46 when he discharged on June 28. Today, procalcitonin was elevated at 7.81. UA revealed 3+ protein, 3+ blood, positive nitrates, 10-30 red blood cells per high-powered field, 30-100 white blood cells per high-power field, many bacteria and 1+ mucus. Urine was sent for culture. Blood cultures were also obtained. CT of the abdomen and pelvis was done which revealed status post stent placement bilaterally with improvement of right-sided hydronephrosis, now moderate in appearance. There was no significant left-sided hydronephrosis. Large right calcification within the right renal pelvis was unchanged. Additional punctate right lower pole nephrolith was noted. There was noted to be extensive perinephric inflammation bilaterally. Chest x-ray done today revealed no acute cardiopulmonary process. Patient reports he was feeling fairly well yesterday, but this morning was febrile to 101. He was having nausea and bilateral flank pain. He notes he was dry heaving this morning. He notes there had been blood in the urine at the time of his initial ureteral stent placement, but that has gradually improved. He did go to Dr. Koo's office yesterday but as he required a chamberlain, they did not pursue further treatment. They did recommend a follow-up voiding trial in another week to 10 days. Currently, patient reports his nausea has resolved. He denies any other ill symptoms. Specifically, no chest pain, shortness the breath, upper respiratory infection symptoms. No diarrhea. He has had a mild cough. [facility] Medical History Acute renal insufficiency Benign prostatic hyperplasia Bilateral hydronephrosis Bilateral renal stones Elevated serum creatinine Lower urinary tract symptoms Family History Mother Hypertension Stroke Social History household members: spouse Smoking Status: Former smoker alcohol intake: current Meds Home Medications and Allergies Home Medications Medication Instructions Recorded Confirmed Type ASPIRIN (Aspirin Low Dose) 81 mg PO DAILY ##0 10/23/06 07/11/22 History ascorbate calcium (vitamin C) 500 1,000 mg PO DAILY 06/27/22 07/11/22 History mg capsule cholecalciferol (vitamin D3) 50 50 mcg PO DAILY 06/27/22 07/11/22 History mcg (2,000 unit) tablet levothyroxine 50 mcg tablet 50 mcg PO DAILY 06/27/22 07/11/22 History lovastatin 40 mg tablet 40 mg PO QPM 06/27/22 07/11/22 History multivitamin 1 tab PO DAILY 06/27/22 07/11/22 History tadalafil 5 mg tablet 5 mg PO DAILY 06/27/22 07/11/22 History finasteride 5 mg tablet 5 mg PO DAILY #30 tabs 07/03/22 07/11/22 Rx tamsulosin 0.4 mg capsule 0.8 mg PO BID 07/09/22 07/11/22 History Allergies Allergy/AdvReac Type Severity Reaction Status Date / Time No Known Drug Allergies Allergy Verified 07/11/22 09:03 Review of Systems Review of Systems Narrative: All other systems were reviewed negative Exam Vital Signs (past 8 hours): - 07/11/22 09:03 07/11/22 12:01 07/11/22 12:01 Temperature 98.3 F Pulse Rate 62 78 Respiratory Rate 18 Blood Pressure 120/66 135/62 Pulse Oximetry 95 94 Oxygen Delivery Method Room Air 07/11/22 12:30 07/11/22 13:00 07/11/22 13:30 Temperature Pulse Rate 91 H 91 H 93 H Respiratory Rate 35 H 36 H Blood Pressure Pulse Oximetry 93 95 95 Oxygen Delivery Method 07/11/22 13:41 07/11/22 13:41 07/11/22 13:45 Temperature Pulse Rate 93 H 105 H Respiratory Rate 34 H 34 H Blood Pressure 102/57 L Pulse Oximetry 93 94 Oxygen Delivery Method Room Air 07/11/22 14:00 07/11/22 14:00 07/11/22 14:15 Temperature Pulse Rate 99 H 90 Respiratory Rate 37 H 35 H Blood Pressure 106/56 L Pulse Oximetry 94 94 Oxygen Delivery Method 07/11/22 14:30 07/11/22 14:45 07/11/22 14:45 Temperature Pulse Rate 87 92 H Respiratory Rate 39 H Blood Pressure 119/57 L Pulse Oximetry 96 96 Oxygen Delivery Method 07/11/22 15:00 07/11/22 15:00 07/11/22 15:15 Temperature 98.8 F Pulse Rate 88 90 Respiratory Rate 32 H 32 H Blood Pressure 109/56 L Pulse Oximetry 95 95 Oxygen Delivery Method Room Air 07/11/22 15:30 07/11/22 15:32 07/11/22 15:32 Temperature Pulse Rate 97 H 91 H Respiratory Rate 30 H 33 H Blood Pressure 119/60 Pulse Oximetry 96 96 Oxygen Delivery Method 07/11/22 15:45 07/11/22 16:00 07/11/22 16:00 Temperature Pulse Rate 92 H 92 H Respiratory Rate 28 H 31 H Blood Pressure 105/57 L Pulse Oximetry 96 97 Oxygen Delivery Method Room Air Oxygen Delivery Method Room Air Narrative Exam Narrative: GEN: Very pleasant elderly male, Alert and oriented x3, no acute distress HEENT: Normocephalic, face symmetric, pupils equal round reactive to light, extraocular movements intact, sclerae anicteric, conjunctiva clear, nares patent, oropharynx reveals an intact soft and hard palate with moist mucous membranes, dentition is fair NECK: Supple, no lymphadenopathy, thyroid without enlargement or nodularity, carotids no bruits CHEST: Respiratory excursions symmetric, clear to auscultation bilaterally CV: Regular rate and rhythm, no murmurs, rubs, gallops, PMI nondisplaced ABD: Soft, nontender, nondistended, bowel sounds present in all 4 quadrants, no organomegaly or masses appreciated, no CVA tenderness but he does have bilateral flank tenderness EXTR: Warm, well perfused, no clubbing/cyanosis/edema SKIN: Warm and dry, without rash NEURO: Alert and oriented x3, grossly intact PSYCH: Mood and affect is within normal limits, judgment and insight are appropriate Objective Labs 07/11/22 13:00 07/11/22 13:00 Labs: Laboratory Results - last 24 hr 07/11/22 07/11/22 07/11/22 13:00 13:00 13:00 WBC 13.7 H RBC 4.39 L Hgb 13.6 Hct 39.4 L MCV 89.8 MCH 30.9 MCHC 34.4 RDW 13.1 Plt Count 184 Neut % (Auto) 90.4 H Lymph % (Auto) 1.4 L [place] % (Auto) 8.0 Eos % (Auto) 0.0 L Baso % (Auto) 0.2 Neut # (Auto) 25033 H Lymph # (Auto) 200 L [place] # (Auto) 1100 H Eos # (Auto) 0 Baso # (Auto) 0 PT 16.1 H INR 1.4 H APTT 32 Sodium 130 L Potassium 3.8 Chloride 97 L Carbon Dioxide 24 BUN 34 H Creatinine 2.41 H Estimated GFR 26 L BUN/Creatinine Ratio 14.1 Glucose 152 H Lactate Calcium 8.0 L Total Bilirubin 0.7 AST 31 ALT 39 Alkaline Phosphatase 79 Total Creatine Kinase CK-MB (CK-2) CK-MB (CK-2) Rel Index Troponin I Total Protein 6.4 Albumin 3.2 L Globulin 3.2 Albumin/Globulin Ratio 1.0 Lipase 40 Procalcitonin 7.81 H Urine Color Urine Appearance Urine pH Ur Specific [place] Urine Protein Urine Glucose (UA) Urine Ketones Urine Occult Blood Urine Nitrate Urine Bilirubin Urine Urobilinogen Ur Leukocyte Esterase Urine RBC Urine WBC Ur Squamous Epith Cells Ur Renal Epithelial Cell Amorphous Sediment Urine Bacteria Urine Mucus Ur Culture Indicated? SARS-CoV-2 (PCR) 07/11/22 07/11/22 07/11/22 13:00 13:00 13:40 WBC RBC Hgb Hct MCV MCH MCHC RDW Plt Count Neut % (Auto) Lymph % (Auto) [place] % (Auto) Eos % (Auto) Baso % (Auto) Neut # (Auto) Lymph # (Auto) [place] # (Auto) Eos # (Auto) Baso # (Auto) PT INR APTT Sodium Potassium Chloride Carbon Dioxide BUN Creatinine Estimated GFR BUN/Creatinine Ratio Glucose Lactate 2.2 H Calcium Total Bilirubin AST ALT Alkaline Phosphatase Total Creatine Kinase 31 L CK-MB (CK-2) TNP CK-MB (CK-2) Rel Index TNP Troponin I 0.026 Total Protein Albumin Globulin Albumin/Globulin Ratio Lipase Procalcitonin Urine Color Yellow Urine Appearance Cloudy Urine pH 6.0 Ur Specific [place] 1.020 Urine Protein 3+ H Urine Glucose (UA) Negative Urine Ketones Negative Urine Occult Blood 3+ H Urine Nitrate Positive H Urine Bilirubin Negative Urine Urobilinogen 0.2 Ur Leukocyte Esterase 2+ H Urine RBC 10-30/hpf H Urine WBC 30-100/hpf H Ur Squamous Epith Cells 0-1 /hpf Ur Renal Epithelial Cell 0-1/hpf Amorphous Sediment 1+ Urine Bacteria Many (>30) H Urine Mucus 1+ H Ur Culture Indicated? Specimen cultured SARS-CoV-2 (PCR) 07/11/22 07/11/22 14:45 15:30 WBC RBC Hgb Hct MCV MCH MCHC RDW Plt Count Neut % (Auto) Lymph % (Auto) [place] % (Auto) Eos % (Auto) Baso % (Auto) Neut # (Auto) Lymph # (Auto) [place] # (Auto) Eos # (Auto) Baso # (Auto) PT INR APTT Sodium Potassium Chloride Carbon Dioxide BUN Creatinine Estimated GFR BUN/Creatinine Ratio Glucose Lactate 1.4 Calcium Total Bilirubin AST ALT Alkaline Phosphatase Total Creatine Kinase CK-MB (CK-2) CK-MB (CK-2) Rel Index Troponin I Total Protein Albumin Globulin Albumin/Globulin Ratio Lipase Procalcitonin Urine Color Urine Appearance Urine pH Ur Specific [place] Urine Protein Urine Glucose (UA) Urine Ketones Urine Occult Blood Urine Nitrate Urine Bilirubin Urine Urobilinogen Ur Leukocyte Esterase Urine RBC Urine WBC Ur Squamous Epith Cells Ur Renal Epithelial Cell Amorphous Sediment Urine Bacteria Urine Mucus Ur Culture Indicated? SARS-CoV-2 (PCR) Negative Assessment & Plan Assessment & Plan narrative: 1. Complicated UTI in patient with indwelling Chamberlain catheter and recent bilateral stent placement for obstructing stones Patient will be placed on IV Rocephin. Await urine culture results. Blood cu ltures have been drawn and are pending but I doubt they will be positive as he does not appear systemically ill. Will require ongoing Chamberlain catheter placement and likely will require a 14 day course of antibiotic treatment given the presence of stones. 2. GUS Creatinine is worse than it was on discharge on June 28, but better overall compared to his initial presentation. Suspect this is secondary to infection, dry heaving with some hypovolemia, and repetitive issues with urinary retention. Will continue Chamberlain catheter placement, gently hydrate, treat infection, and recheck in the morning. 3. Leukocytosis Secondary to acute infection. 4. Hyponatremia Mild. Will monitor response with hydration 5. Hyperglycemia No known history of diabetes. Suspect this is secondary to acute infection. Will monitor on tomorrow's labs. 6. BPH Continue tamsulosin 0.8 mg daily. Finasteride as listed in his home meds but not yet reconciled. He is uncertain if this is 1 of his routine medications. Await medication reconciliation 7. Hypothyroidism Await medication reconciliation. Will resume usual home dose of medication 8. Hyperlipidemia Await medication reconciliation. Code status Full Prophylaxis Will start heparin Disposition Admit to [facility] care Quality VTE Deep Vein Thrombosis/Pulmonary Embolism Present on Admission: No
[2022-07-11] MEDS: SODIUM CHLORIDE 0.9% 1,000 ML 100 ML IV (17:26)
--- NOTE | 2022-07-11 18:20 | PC.NURSE ---
Day shift: Patient admitted from ED at 1645. Solis catheter in place. Patient states mild discomfort in bladder that is adequately managed with Tylenol. Skin intact. PIV running NS @ 100. Patient's temp 100.0. IV antibiotics ordered to treat UTI. Will continue to monitor.
[2022-07-11] MEDS: TAMSULOSIN 0.4 MG CAPSULE PO (21:59)
[2022-07-11] MEDS: ATORVASTATIN 20 MG TABLET 10 MG PO (21:59)
[2022-07-11] MEDS: HEPARIN 5,000 UNIT/ML VIAL 5000 UNIT SUBCUT (22:00)
[2022-07-12] VITALS (10 sets, daily range): BP systolic 103–126; BP diastolic 52–66; PULSE 59–94; RESP 17–18; TEMP 35.9–37.8; O2SAT 92–98
[2022-07-12] MEDS: SODIUM CHLORIDE 0.9% 1,000 ML 100 ML IV (01:58)
[2022-07-12] MEDS: MELATONIN 3 MG TABLET 6 MG PO ×2 (02:00→20:22)
[2022-07-12 03:36] LABS: CTX-M Resistance Not Detected (Not Detect); Enterococcus faecalis Not Detected (Not Detect); Enterococcus faecium Not Detected (Not Detect); IMP Resistance Not Detected (Not Detect); KPC Resistance Not Detected (Not Detect); Listeria monocytogenes Not Detected (Not Detect); NDM Resistance Not Detected (Not Detect); OXA-48-like Resistance Not Detected (Not Detect); Staphylococcus epidermidis Not Detected (Not Detect); Staphylococcus lugdunensis Not Detected (Not Detect); Staphylococcus species Not Detected (Not Detect); VIM Resistance Not Detected (Not Detect)
[2022-07-12 03:37] LABS: Acinetobacter calcoa-baumannii Not Detected (Not Detect); Bacteroides fragilis Not Detected (Not Detect); Enterobacter cloacae complex Not Detected (Not Detect); Enterobacterales DETECTED (Not Detect); Streptococcus agalactiae (Gr B Not Detected (Not Detect); Streptococcus pneumonia Not Detected (Not Detect); Streptococcus pyogenes (Gr A) Not Detected (Not Detect); Streptococcus species Not Detected (Not Detect)
[2022-07-12 03:38] LABS: Candida albicans Not Detected (Not Detect); Candida auris Not Detected (Not Detect); Candida glabrata Not Detected (Not Detect); Candida krusei Not Detected (Not Detect); Candida parapsilosis Not Detected (Not Detect); Candida tropicalis Not Detected (Not Detect); Cryptococcus neoformans/gatti Not Detected (Not Detect); Haemophilus influenzae Not Detected (Not Detect); Klebsiella aerogenes Not Detected (Not Detect); Neisseria meningitidis Not Detected (Not Detect); Proteus species Not Detected (Not Detect); Pseudomonas aeruginosa Not Detected (Not Detect); Salmonella species Not Detected (Not Detect); Serratia marcescens Not Detected (Not Detect); Stenotrophomonas maltophilia Not Detected (Not Detect)
[2022-07-12] MEDS: LEVOTHYROXINE 50 MCG TABLET PO (05:37)
[2022-07-12 06:42] LABS: Add Manual Diff / Slide Review NO; Basophils Absolute Auto 0 /uL (0-100); Eosinophils Absolute Auto 0 /uL (0-450); Hematocrit 39.8 % (41-53); Hemoglobin 13.5 g/dL (13.5-17.5); Lymphocytes Absolute Auto 200 /uL (1100-4500); Lymphocytes Percent Auto 1.7 % (25-40); Mean Corpuscular Hemoglobin 30.7 PG (26-34); Mean Corpuscular Volume 90.3 fL (80-100); Monocytes Absolute Auto 600 /uL (0-900); Neutrophils Absolute Auto 9600 /uL (1500-7000); Neutrophils Percent Auto 92.3 % (50-75); Platelet Count 170 X10^3/uL (150-400); Red Blood Cell Count 4.41 X10^6/uL (4.5-5.9); Red Cell Distribution Width 13.6 % (11.6-14.8); White Blood Cell Count 10.4 X10^3/uL (4.5-11.0)
[2022-07-12 06:54] LABS: BUN Creatinine Ratio 15.2 (6-22); Blood Urea Nitrogen 37 mg/dL (9-20); Calcium 7.7 mg/dL (8.4-10.2); Carbon Dioxide 21 mmol/L (22-32); Chloride 103 mmol/L (98-107); Estimated Glomerular Filt Rate 26 mL/min (>60); Glucose 123 mg/dL (80-110); HEMOLYSIS < 15 (0-50); Potassium 3.7 mmol/L (3.4-5.1); Sodium 132 mmol/L (137-145)
[2022-07-12] MEDS: MULTIVITAMIN 1 TABLET 1 TAB PO (08:15)
[2022-07-12] MEDS: TAMSULOSIN 0.4 MG CAPSULE PO ×2 (08:15→20:21)
[2022-07-12] MEDS: HEPARIN 5,000 UNIT/ML VIAL 5000 UNIT SUBCUT ×2 (08:15→20:21)
[2022-07-12] MEDS: ASPIRIN 81 MG CHEW TAB PO (08:15)
[2022-07-12] MEDS: ONDANSETRON 4 MG/2 ML INJ IV (08:15)
[2022-07-12] MEDS: FINASTERIDE 5 MG TABLET PO (08:15)
[2022-07-12] MEDS: ACETAMINOPHEN 325 MG TABLET 650 MG PO ×3 (08:15→20:22)
--- NOTE | 2022-07-12 11:42 | CM.DANOTE ---
DCP: Case received, EMR reviewed and met with patient. Introduced self and role. Was able to obtain information regarding patient's baseline activity status prior to admission. DCP assessment completed with information currently available. Patient is an 82 year old male who admitted yesterday afternoon to the care of the hospitalist team. PCP: Dr. Mayda Rodriguez. Payer: confirmed: [facility]. Patient came to the hospital via private vehicle secondary to having fever and chills, unable to empty his bladder. Patient presented to the ER, had abut 800 ml of urine, after chamberlain was inserted. Patient was complaining of fever and chills afterward. Patient also complaining of suprapubic discomfort. Patient diagnosed with complicated UTI with indwelling catheter. Patient has also had recent bilateral stent placement for obstructing stones. Met with patient in his room. He was laying in bed, alert and oriented. Confirmed that he resides here in [place] with spouse, Katherin. He confirmed that he is independent with his mobility at his baseline. P: DCP to continue to follow. Patient is currently being treated with IV ABO, will need to see if this will be prolonged, or if he can go home on oral ABO. Brielle Garcia RN/Supervisor Telephone Information Discharge Planning/Care Management CM Discharge Assessment Start: 07/12/22 11:40 Freq: Status: Active Protocol: Document 07/12/22 11:40 (Rec: 07/12/22 11:42 [id number]) Discharge Planning Assessment Assigned Director Vaccine Brielle Garcia RN/Supervisor Telephone Information Advance Directives? Yes Advance Directives on File No History Provided By Patient,Medical Record Prior Living Arrangements House Household Members spouse Type of transporation used prior to Drives own vehicle admit Independent with ADL's Yes Is patient alert and oriented? Yes Caregiver for Another No Barriers to Discharge No Comment Will have to see if patient requires network systems consultant ABO Discharge Plan Home Transportation Arrangement Spouse Referrals Initiated None needed Whiteboard Updated in Patient Room with Yes name and ext. # of Director Vaccine Review Status In Process Next Review Type Continued Stay Review
[2022-07-12] MEDS: cefTRIAXone 1,000 MG in SODIUM CHLORIDE 0.9% 100 ML 200 MG IV (12:57)
--- NOTE | 2022-07-12 13:56 | PM.PN.1 ---
Subjective Subjective Interval history: 82-year-old male with BPH, hypothyroidism, hyperlipidemia, history of skin cancer, and remote history of tobacco dependence who was recently hospitalized 06/27/06/28with obstructing kidney stones (7 mm obstructing stone within the left proximal ureter, associated with left-sided hydronephrosis and hydroureter, and a large right ureterovesicular junction stone causing grossly dilated right renal collecting system) with hematuria and GUS.? He underwent right and left ureteral stents and coude catheter placement on June [address] Koo, urology.? GUS improved and he d/c'd home. Voding trial on 07/02 failed and catheter was reinserted. 2nd voiding trial on 07/09. He returned to the ED on the evening of 07/09 w/retention and again catheter was replaced. He presented to the emergency department on 07/11 complaining of fevers, chills, and mild suprapubic discomfort and was admitted w/catheter associated UTI. Patient reports he is feeling a bit better today. He denies any nausea. He states he was able to eat a bit better today as well. He is having some persistent suprapubic and flank discomfort. He is having his bring her milk shake this afternoon and is excited to be getting it. He is hopeful he will be able to discharge tomorrow. Exam Vital Signs (past 8 hours): - 07/11/22 13:00 07/11/22 13:30 07/11/22 13:41 Temperature Pulse Rate 91 H 93 H 93 H Respiratory Rate 35 H 36 H 34 H Blood Pressure Pulse Oximetry 95 95 93 Oxygen Delivery Method Room Air Oxygen Flow Rate 07/11/22 13:41 07/11/22 13:45 07/11/22 14:00 Temperature Pulse Rate 105 H Respiratory Rate 34 H Blood Pressure 102/57 L 106/56 L Pulse Oximetry 94 Oxygen Delivery Method Oxygen Flow Rate 07/11/22 14:00 07/11/22 14:15 07/11/22 14:30 Temperature Pulse Rate 99 H 90 87 Respiratory Rate 37 H 35 H Blood Pressure Pulse Oximetry 94 94 96 Oxygen Delivery Method Oxygen Flow Rate 07/11/22 14:45 07/11/22 14:45 07/11/22 15:00 Temperature Pulse Rate 92 H Respiratory Rate 39 H Blood Pressure 119/57 L 109/56 L Pulse Oximetry 96 Oxygen Delivery Method Oxygen Flow Rate 07/11/22 15:00 07/11/22 15:15 07/11/22 15:30 Temperature 98.8 F Pulse Rate 88 90 97 H Respiratory Rate 32 H 32 H 30 H Blood Pressure Pulse Oximetry 95 95 96 Oxygen Delivery Method Room Air Oxygen Flow Rate 07/11/22 15:32 07/11/22 15:32 07/11/22 15:45 Temperature Pulse Rate 91 H 92 H Respiratory Rate 33 H 28 H Blood Pressure 119/60 Pulse Oximetry 96 96 Oxygen Delivery Method Room Air Oxygen Flow Rate 07/11/22 16:00 07/11/22 16:00 07/11/22 17:04 Temperature 100.0 F H Pulse Rate 92 H 91 H Respiratory Rate 31 H 17 Blood Pressure 105/57 L 115/64 Pulse Oximetry 97 96 Oxygen Delivery Method Oxygen Flow Rate 0 Oxygen Delivery Method Room Air Oxygen Flow Rate 0 Narrative Exam Narrative: GEN:? Very pleasant elderly male, Alert and oriented x3, no acute distress HEENT:? Normocephalic, face symmetric CHEST:? Respiratory excursions symmetric, clear to auscultation bilaterally CV:? Regular rate and rhythm, no murmurs, rubs, gallops, PMI nondisplaced ABD:? Soft, moderate suprapubic tenderness,, nondistended, bowel sounds present in all 4 quadrants, no organomegaly or masses appreciated, persistent bilateral flank tenderness EXTR:? Warm, well perfused, no clubbing/cyanosis/edema SKIN:? Warm and dry, without rash NEURO:? Alert and oriented x3, grossly intact Objective Labs 07/12/22 06:08 07/12/22 06:08 Labs: Laboratory Results - last 24 hr 07/11/22 07/11/22 07/11/22 13:00 13:00 13:00 WBC 13.7 H RBC 4.39 L Hgb 13.6 Hct 39.4 L MCV 89.8 MCH 30.9 MCHC 34.4 RDW 13.1 Plt Count 184 Neut % (Auto) 90.4 H Lymph % (Auto) 1.4 L [place] % (Auto) 8.0 Eos % (Auto) 0.0 L Baso % (Auto) 0.2 Neut # (Auto) 50480 H Lymph # (Auto) 200 L [place] # (Auto) 1100 H Eos # (Auto) 0 Baso # (Auto) 0 PT 16.1 H INR 1.4 H APTT 32 Sodium 130 L Potassium 3.8 Chloride 97 L Carbon Dioxide 24 BUN 34 H Creatinine 2.41 H Estimated GFR 26 L BUN/Creatinine Ratio 14.1 Glucose 152 H Lactate Calcium 8.0 L Total Bilirubin 0.7 AST 31 ALT 39 Alkaline Phosphatase 79 Total Creatine Kinase CK-MB (CK-2) CK-MB (CK-2) Rel Index Troponin I Total Protein 6.4 Albumin 3.2 L Globulin 3.2 Albumin/Globulin Ratio 1.0 Lipase 40 Procalcitonin 7.81 H Urine Color Urine Appearance Urine pH Ur Specific [place] Urine Protein Urine Glucose (UA) Urine Ketones Urine Occult Blood Urine Nitrate Urine Bilirubin Urine Urobilinogen Ur Leukocyte Esterase Urine RBC Urine WBC Ur Squamous Epith Cells Ur Renal Epithelial Cell Amorphous Sediment Urine Bacteria Urine Mucus Ur Culture Indicated? SARS-CoV-2 (PCR) 07/11/22 07/11/22 07/11/22 13:00 13:00 13:40 WBC RBC Hgb Hct MCV MCH MCHC RDW Plt Count Neut % (Auto) Lymph % (Auto) [place] % (Auto) Eos % (Auto) Baso % (Auto) Neut # (Auto) Lymph # (Auto) [place] # (Auto) Eos # (Auto) Baso # (Auto) PT INR APTT Sodium Potassium Chloride Carbon Dioxide BUN Creatinine Estimated GFR BUN/Creatinine Ratio Glucose Lactate 2.2 H Calcium Total Bilirubin AST ALT Alkaline Phosphatase Total Creatine Kinase 31 L CK-MB (CK-2) TNP CK-MB (CK-2) Rel Index TNP Troponin I 0.026 Total Protein Albumin Globulin Albumin/Globulin Ratio Lipase Procalcitonin Urine Color Yellow Urine Appearance Cloudy Urine pH 6.0 Ur Specific [place] 1.020 Urine Protein 3+ H Urine Glucose (UA) Negative Urine Ketones Negative Urine Occult Blood 3+ H Urine Nitrate Positive H Urine Bilirubin Negative Urine Urobilinogen 0.2 Ur Leukocyte Esterase 2+ H Urine RBC 10-30/hpf H Urine WBC 30-100/hpf H Ur Squamous Epith Cells 0-1 /hpf Ur Renal Epithelial Cell 0-1/hpf Amorphous Sediment 1+ Urine Bacteria Many (>30) H Urine Mucus 1+ H Ur Culture Indicated? Specimen cultured SARS-CoV-2 (PCR) 07/11/22 07/11/22 14:45 15:30 WBC RBC Hgb Hct MCV MCH MCHC RDW Plt Count Neut % (Auto) Lymph % (Auto) [place] % (Auto) Eos % (Auto) Baso % (Auto) Neut # (Auto) Lymph # (Auto) [place] # (Auto) Eos # (Auto) Baso # (Auto) PT INR APTT Sodium Potassium Chloride Carbon Dioxide BUN Creatinine Estimated GFR BUN/Creatinine Ratio Glucose Lactate 1.4 Calcium Total Bilirubin AST ALT Alkaline Phosphatase Total Creatine Kinase CK-MB (CK-2) CK-MB (CK-2) Rel Index Troponin I Total Protein Albumin Globulin Albumin/Globulin Ratio Lipase Procalcitonin Urine Color Urine Appearance Urine pH Ur Specific [place] Urine Protein Urine Glucose (UA) Urine Ketones Urine Occult Blood Urine Nitrate Urine Bilirubin Urine Urobilinogen Ur Leukocyte Esterase Urine RBC Urine WBC Ur Squamous Epith Cells Ur Renal Epithelial Cell Amorphous Sediment Urine Bacteria Urine Mucus Ur Culture Indicated? SARS-CoV-2 (PCR) Negative [facility] Medical History Acute renal insufficiency Benign prostatic hyperplasia Bilateral hydronephrosis Bilateral renal stones Elevated serum creatinine Lower urinary tract symptoms Family History Mother Hypertension Stroke Social History household members: spouse Smoking Status: Former smoker alcohol intake: current Assessment & Plan Assessment & Plan narrative: 1. Complicated UTI in patient with indwelling Solis catheter and recent bilateral stent placement for obstructing stones Continues Rocephin. Urine cultures thus far growing Gram-negative bacilli. 4/4 Blood cultures also are positive for E coli. Will require ongoing Solis catheter placement and likely will require a 14 day course of antibiotic treatment given the presence of stones. 2. Sepsis Patient did meet criteria for sepsis on admission with leukocytosis, GUS, tachycardia and tachypnea. As noted blood cultures are positive for E coli. Will repeat blood cultures tomorrow. Leukocytosis is resolved. 3. GUS Creatinine is worse than it was on discharge on June 28, but better overall compared to his initial presentation.? Suspect this is secondary to infection, dry heaving with some hypovolemia, and repetitive issues with urinary retention.? Today, creatinine is essentially unchanged at 2.44. Urine is somewhat dark. He did receive over 4 L of fluid yesterday. He is taking good oral intake. Will monitor. 3. Leukocytosis Secondary to acute infection. Now resolved. 4. Hyponatremia Mild.? Improving. 5. Hyperglycemia No known history of diabetes.? Suspect this is secondary to acute infection.? BG this morning is down to 123. 6. BPH Continue tamsulosin 0.8 mg daily (he takes 0.4 BID). Continue finasteride. 7. Hypothyroidism Continue levothyroxine. 8. Hyperlipidemia Continue lovastatin. Code status Full Prophylaxis On heparin Disposition Home when improved Quality VTE Deep Vein Thrombosis/Pulmonary Embolism Present on Admission: No
--- NOTE | 2022-07-12 19:12 | P.PN_ITS ---
Subjective Subjective Interval history: 82-year-old male with BPH, hypothyroidism, hyperlipidemia, history of skin cancer, and remote history of tobacco dependence who was recently hospitalized 06/27/06/28with obstructing kidney stones (7 mm obstructing stone within the left proximal ureter, associated with left-sided hydronephrosis and hydroureter, and a large right ureterovesicular junction stone causing grossly dilated right renal collecting system) with hematuria and GUS.? He underwent right and left ureteral stents and coude catheter placement on June [address] Koo, urology.? GUS improved and he d/c'd home.? Voding trial on 07/02 failed and catheter was reinserted.? 2nd voiding trial on 07/09.? He returned to the ED on the evening of 07/09 w/retention and again catheter was replaced.? He presented to the emergency department on 07/11 complaining of fevers, chills, and mild suprapubic discomfort and was admitted w/catheter associated UTI. Patient reports he continues to feel better overall. He again asked if Dr. Koo will be by to see him. He did have a low-grade fever yesterday. He remains concerned about his renal function. Improving suprapubic and flank discomfort. Exam Vital Signs (past 8 hours): - 07/12/22 15:12 07/12/22 15:14 07/12/22 15:44 Temperature 100.1 F H 100.1 F H 99.5 F Pulse Rate 94 H Respiratory Rate 18 Blood Pressure 103/52 L Pulse Oximetry 92 07/12/22 16:05 Temperature 98.1 F Pulse Rate Respiratory Rate Blood Pressure Pulse Oximetry Oxygen Delivery Method Room Air Oxygen Flow Rate 0 Narrative Exam Narrative: GEN:? Very pleasant elderly male, Alert and oriented x3, no acute distress HEENT:? Normocephalic, face symmetric CHEST:? Respiratory excursions symmetric, clear to auscultation bilaterally CV:? Regular rate and rhythm, no murmurs, rubs, gallops, PMI nondisplaced ABD:? Soft, moderate suprapubic tenderness,, nondistended, bowel sounds present in all 4 quadrants, no organomegaly or masses appreciated, no flank tenderness EXTR:? Warm, well perfused, no clubbing/cyanosis/edema SKIN:? Warm and dry, without rash NEURO:? Alert and oriented x3, grossly intact Objective Labs 07/13/22 05:51 07/13/22 05:51 Labs: Laboratory Results - last 24 hr 07/11/22 07/12/22 07/12/22 13:00 06:08 06:08 WBC 10.4 RBC 4.41 L Hgb 13.5 Hct 39.8 L MCV 90.3 MCH 30.7 MCHC 34.0 RDW 13.6 Plt Count 170 Neut % (Auto) 92.3 H Lymph % (Auto) 1.7 L [place] % (Auto) 6.0 Eos % (Auto) 0.0 L Baso % (Auto) 0.0 Neut # (Auto) 9600 H Lymph # (Auto) 200 L [place] # (Auto) 600 Eos # (Auto) 0 Baso # (Auto) 0 Sodium 132 L Potassium 3.7 Chloride 103 Carbon Dioxide 21 L BUN 37 H Creatinine 2.44 H Estimated GFR 26 L BUN/Creatinine Ratio 15.2 Glucose 123 H Calcium 7.7 L A.calcoaceticus-baumannii cmplx PCR Not detected Bacteroides fragilis Not detected Tiana albicans (PCR) Not detected Tiana auris (PCR) Not detected C. glabrata (PCR) Not detected C. krusei (PCR) Not detected C. parapsilosis (PCR) Not detected C. tropicalis (PCR) Not detected C. neoform/gattii (PCR) Not detected Enterobacterales (PCR) Detected H E. cloacae complex PCR Not detected Enterococc faecalis PCR Not detected Enterococc faecium PCR Not detected E. coli (PCR) Detected H H. influenzae (PCR) Not detected Klebsiella aerogenes (PCR) Not detected Klebsiella oxytoca PCR Not detected Klebsiella pneumoniae Not detected List. monocytogenes PCR Not detected N. meningitidis (PCR) Not detected Proteus species (PCR) Not detected Salmonella spp. (PCR) Not detected Serratia marcescens PCR Not detected Staphylococcus sp PCR Not detected Staph aureus (PCR) Not detected Staph epidermidis (PCR) Not detected Staph lugdunensis PCR Not detected S. maltophilia (PCR) Not detected Streptococcus sp PCR Not detected Group A Strep (PCR) Not detected Strep agalactiae (PCR) Not detected Strep pneumoniae (PCR) Not detected P. aeruginosa (PCR) Not detected blaIMP Car res Gene PCR Not detected KPC-Carbap Res Gene PCR Not detected blaNDM Car Res Gene PCR Not detected OXA-48 Carbapenem Resis Gene (PCR) Not detected blaVIM Car Res Gene PCR Not detected CTX-M Gene Resistance (PCR) Not detected PFS Medical History Acute renal insufficiency Benign prostatic hyperplasia Bilateral hydronephrosis Bilateral renal stones Elevated serum creatinine Lower urinary tract symptoms Family History Mother Hypertension Stroke Social History household members: spouse Smoking Status: Former smoker alcohol intake: current Assessment & Plan Assessment & Plan narrative: 1. Complicated UTI in patient with indwelling Solis catheter and recent bilateral stent placement for obstructing stones Continues Rocephin.? Urine cultures thus far growing E coli that is resistant to ciprofloxacin and trimethoprim sulfa, as well as levofloxacin.? / Blood cultures also are positive for E coli.? Will require ongoing Solis catheter placement and likely will require a 14 day course of antibiotic treatment given the presence of stones and stents.? I did repeat blood cultures this morning as given his recent instrumentation proof of resolution of bacteremia is ideal. I was able to speak with Dr. Koo and he did come by to see the patient socially. He agrees with the plan of care and will follow-up with the patient on an outpatient basis. 2. Sepsis Patient did meet criteria for sepsis on admission with leukocytosis, GUS, tachycardia and tachypnea.? As noted blood cultures are positive for E coli.? Follow-up cultures drawn today. 3. GUS Creatinine is worse than it was on discharge on June 28, but better overall compared to his initial presentation.? Suspect this is secondary to infection, dry heaving with some hypovolemia, and repetitive issues with urinary retention.? Today, creatinine is improved from 2.44-2.19. Repeat labs in the morning for recheck. 3. Leukocytosis Secondary to acute infection.? Now resolved. 4. Hyponatremia Mild.? Continuing to improve at 133 today 5. Hyperglycemia No known history of diabetes.? Suspect this is secondary to acute infection.? However, his morning sugars although nonfasting have remained elevated. Will check an A1c. 6. BPH Continue tamsulosin 0.8 mg daily (he takes 0.4 BID).? Continue finasteride. 7. Hypothyroidism Continue levothyroxine. 8. Hyperlipidemia Continue lovastatin. Code status Full Prophylaxis On heparin Disposition Anticipate discharge home tomorrow Quality VTE Deep Vein Thrombosis/Pulmonary Embolism Present on Admission: No
[2022-07-12] MEDS: ATORVASTATIN 20 MG TABLET 10 MG PO (20:23)
[2022-07-13] VITALS (11 sets, daily range): BP systolic 109–140; BP diastolic 55–66; PULSE 44–68; RESP 17–18; TEMP 36.3–38.2; O2SAT 91–96
[2022-07-13] MEDS: LEVOTHYROXINE 50 MCG TABLET PO (05:41)
[2022-07-13] MEDS: ACETAMINOPHEN 325 MG TABLET 650 MG PO ×3 (05:42→17:55)
[2022-07-13 06:25] LABS: Add Manual Diff / Slide Review NO; Basophils Absolute Auto 0 /uL (0-100); Basophils Percent Auto 0.1 % (0-2); Eosinophils Absolute Auto 0 /uL (0-450); Eosinophils Percent Auto 0.1 % (2-4); Hematocrit 39.6 % (41-53); Hemoglobin 13.4 g/dL (13.5-17.5); Lymphocytes Absolute Auto 200 /uL (1100-4500); Lymphocytes Percent Auto 2.7 % (25-40); Mean Corpuscular HGB Conc 33.9 % (30-36); Mean Corpuscular Hemoglobin 30.5 PG (26-34); Monocytes Absolute Auto 600 /uL (0-900); Monocytes Percent Auto 7.2 % (3-14); Neutrophils Absolute Auto 7200 /uL (1500-7000); Neutrophils Percent Auto 89.9 % (50-75); Platelet Count 167 X10^3/uL (150-400); Red Blood Cell Count 4.41 X10^6/uL (4.5-5.9); Red Cell Distribution Width 13.8 % (11.6-14.8)
[2022-07-13 06:40] LABS: BUN Creatinine Ratio 16.9 (6-22); Blood Urea Nitrogen 37 mg/dL (9-20); Calcium 7.9 mg/dL (8.4-10.2); Carbon Dioxide 24 mmol/L (22-32); Chloride 101 mmol/L (98-107); Estimated Glomerular Filt Rate 29 mL/min (>60); Glucose 131 mg/dL (80-110); HEMOLYSIS < 15 (0-50); Sodium 133 mmol/L (137-145)
[2022-07-13] MEDS: TAMSULOSIN 0.4 MG CAPSULE PO ×2 (08:47→20:08)
[2022-07-13] MEDS: HEPARIN 5,000 UNIT/ML VIAL 5000 UNIT SUBCUT ×2 (08:47→20:07)
[2022-07-13] MEDS: ASPIRIN 81 MG CHEW TAB PO (08:47)
[2022-07-13] MEDS: FINASTERIDE 5 MG TABLET PO (08:47)
[2022-07-13] MEDS: MULTIVITAMIN 1 TABLET 1 TAB PO (08:47)
[2022-07-13] MEDS: cefTRIAXone 1,000 MG in SODIUM CHLORIDE 0.9% 100 ML 200 MG IV (13:01)
--- NOTE | 2022-07-13 15:43 | OT.IPNOTE ---
Chart reviewed and nursing consulted. Pt is IND currently and took a shower earlier today without assist. No OT needs. Will d/c OT eval order.
[2022-07-13] MEDS: TRAMADOL 50 MG TABLET PO (16:18)
[2022-07-13] MEDS: ONDANSETRON 4 MG/2 ML INJ IV (17:55)
[2022-07-13] MEDS: MELATONIN 3 MG TABLET 6 MG PO (20:08)
[2022-07-13] MEDS: ATORVASTATIN 20 MG TABLET 10 MG PO (20:08)
[2022-07-14 00:54] VITALS: BP 103/71; PULSE 65; RESP 18; TEMP 36.5; O2SAT 94
[2022-07-14 04:32] VITALS: BP 116/66; PULSE 86; RESP 18; TEMP 37.1; O2SAT 94
[2022-07-14 05:18] LABS: Labcorp Hemoglobin (Hb) A1c 6.4 % (4.8-5.6)
[2022-07-14] MEDS: LEVOTHYROXINE 50 MCG TABLET PO (06:08)
[2022-07-14] MEDS: ACETAMINOPHEN 325 MG TABLET 650 MG PO (06:10)
[2022-07-14 06:15] LABS: Add Manual Diff / Slide Review NO; Basophils Absolute Auto 0 /uL (0-100); Basophils Percent Auto 0.1 % (0-2); Eosinophils Absolute Auto 0 /uL (0-450); Eosinophils Percent Auto 0.2 % (2-4); Hematocrit 38.8 % (41-53); Hemoglobin 13.3 g/dL (13.5-17.5); Lymphocytes Absolute Auto 300 /uL (1100-4500); Lymphocytes Percent Auto 3.6 % (25-40); Mean Corpuscular HGB Conc 34.3 % (30-36); Mean Corpuscular Hemoglobin 30.6 PG (26-34); Mean Corpuscular Volume 89.3 fL (80-100); Monocytes Absolute Auto 800 /uL (0-900); Monocytes Percent Auto 9.1 % (3-14); Neutrophils Absolute Auto 8100 /uL (1500-7000); Platelet Count 167 X10^3/uL (150-400); Red Blood Cell Count 4.35 X10^6/uL (4.5-5.9); Red Cell Distribution Width 13.9 % (11.6-14.8); White Blood Cell Count 9.3 X10^3/uL (4.5-11.0)
[2022-07-14 06:25] LABS: BUN Creatinine Ratio 17.1 (6-22); Blood Urea Nitrogen 36 mg/dL (9-20); Calcium 7.9 mg/dL (8.4-10.2); Carbon Dioxide 25 mmol/L (22-32); Chloride 100 mmol/L (98-107); Estimated Glomerular Filt Rate 30 mL/min (>60); Glucose 111 mg/dL (80-110); HEMOLYSIS < 15 (0-50); Potassium 4.1 mmol/L (3.4-5.1); Sodium 130 mmol/L (137-145)
[2022-07-14 06:38] VITALS: TEMP 37.4
[2022-07-14 07:00] VITALS: O2SAT 95
[2022-07-14 09:00] VITALS: BP 99/45; PULSE 42; RESP 17; TEMP 36.7; O2SAT 95
[2022-07-14] MEDS: FINASTERIDE 5 MG TABLET PO (09:15)
[2022-07-14] MEDS: TRAMADOL 50 MG TABLET PO (09:15)
[2022-07-14] MEDS: TAMSULOSIN 0.4 MG CAPSULE PO (09:15)
[2022-07-14] MEDS: ASPIRIN 81 MG CHEW TAB PO (09:15)
[2022-07-14] MEDS: MULTIVITAMIN 1 TABLET 1 TAB PO (09:15)
[2022-07-14] MEDS: HEPARIN 5,000 UNIT/ML VIAL 5000 UNIT SUBCUT (09:16)
--- NOTE | 2022-07-14 11:15 | CM.DPC ---
DCP Cont: Met with patient and asked him if he wanted home health since he will be going home with a catheter, has declined. Had asked him upon admit, but wanted to let him know that services are available. He feels confident going home with catheter, will be following up with his urology office. P: DCP to continue to follow. Patient may be going home today if stable, has declined home health. Brielle Garcia RN/Director Adult
[2022-07-14 11:22] VITALS: TEMP 36.9
[2022-07-14] MEDS: cefTRIAXone 1,000 MG in SODIUM CHLORIDE 0.9% 100 ML 200 MG IV (12:58)
--- NOTE | 2022-07-15 16:21 | P.DS_ITS ---
History of Present Illness History of Present Illness Chief complaint: poss. bladder infection per pt, has catherer Narrative: Per admitting physician: 82-year-old male with BPH, hypothyroidism, hyperlipidemia, history of skin cancer, and remote history of tobacco dependence who was recently hospitalized June 27 of this year through June 28 of this year with obstructing kidney stones (7 mm obstructing stone within the left proximal ureter, associated with left-sided hydronephrosis and hydroureter, and a large right ureterovesicular junction stone causing grossly dilated right renal collecting system) with hematuria and GUS. He underwent right and left ureteral stents and coude catheter placement on June [address] Koo, urology. He followed your kind on July 02 for a voiding trial. The catheter was removed with a small amount of blood noted at the tip of the catheter. Unfortunately, he had continued urinary retention and a new Chamberlain catheter was placed. He returned on July 03 for a urine culture (which revealed no growth). Another voiding trial was initiated on July 09. He was also instructed to increase tamsulosin to 0.8 mg. He was advised to return the following day for postvoid residual. Unfortunately, he was unable to urinate more than small amount and ultimately presented to the emergency department that evening with ongoing urinary retention. A new catheter was placed with 800 cc of urine draining. He was advised to follow-up with Dr. Koo the next day. It is unclear if that follow-up visit occurred. However, today he presented to the emergency department complaining of fevers, chills, and mild suprapubic discomfort and he was concern for urinary tract infection. In the emergency department, he was afebrile. Mildly tachycardic at 92, mildly tachypneic at 32. Labs were performed which revealed a white blood cell count of 13.7, normal hemoglobin at 13.6. Protime 16.1, INR 1.4. Sodium was 130, potassium 3.8, chloride 97, bicarb 24, BUN elevated at 34 and creatinine elevated at 2.41. Previously, BUN was 25 on June 28. Creatinine had been as high as 4.87 on June 26 when he had obstructive uropathy, but had come down to 1.46 when he discharged on June 28. Today, procalcitonin was elevated at 7.81. UA revealed 3+ protein, 3+ blood, positive nitrates, 10-30 red blood cells per high-powered field, 30-100 white blood cells per high-power field, many bacteria and 1+ mucus. Urine was sent for culture. Blood cultures were also obtained. CT of the abdomen and pelvis was done which revealed status post stent placement bilaterally with improvement of right-sided hydronephrosis, now moderate in appearance. There was no significant left-sided hydronephrosis. Large right calcification within the right renal pelvis was unchanged. Additional punctate right lower pole nephrolith was noted. There was noted to be extensive perinephric inflammation bilaterally. Chest x-ray done today revealed no acute cardiopulmonary process. Patient reports he was feeling fairly well yesterday, but this morning was febrile to 101. He was having nausea and bilateral flank pain. He notes he was dry heaving this morning. He notes there had been blood in the urine at the time of his initial ureteral stent placement, but that has gradually improved. He did go to Dr. Koo's office yesterday but as he required a chamberlain, they did not pursue further treatment. They did recommend a follow-up voiding trial in another week to 10 days. Currently, patient reports his nausea has resolved. He denies any other ill symptoms. Specifically, no chest pain, shortness the breath, upper respiratory infection symptoms. No diarrhea. He has had a mild cough. Discharge Providers Provider Date of admission: 07/11/22 15:48 Discharge Date: 07/14/22 Primary care physician: Mayda Rodriguez PA-C Consults: 07/11/22 16:24 Consult to Discharge Planning Routine Comment: Consult to Occupational Therapy Evaluate & Treat Comment: Physician Instructions: Evaluate and treat Consult to Physical Therapy Evaluate & Treat Comment: Physician Instructions: Evaluate and Treat Discharge provider: Timi Jasso MD Summary Hospital Course Discharge Diagnosis: 1. E. coli UTI and bacteremia from indwelling catheter and urinary retention 2. Bilateral kidney stones with stents in place 3. Sepsis with GUS 4. Hyponatremia 5. Hypoglycemia 6. BPH 7. Hypothyroidism 8. Hyperlipidemia Hospital Course: Mr. Higgins was admitted with sepsis from a UTI. He was started on antibiotics and had good improvement. He has prior to this admission had bilateral stents placed for obstructing kidney stones. He had prior to this admission had a chamberlain, with hematuria and urinary retention. He had a voiding trial that was unsuccessful and had to have chamberlain replaced, and in this setting likely developed his infection. He had E. coli that was notable in his blood and urine on 07/11. This was sensitive to Augmentin so he was discharged with an additional week of antibiotics to complete a 10 day course. He has follow up with urology in one week and with his PCP within 10 days. Exam Vital Signs (past 8 hours): Oxygen Delivery Method Room Air Oxygen Flow Rate 0 Narrative Exam Narrative: GEN:? no acute distress CHEST:? clear to auscultation bilaterally CV:? Regular rate and rhythm, no murmurs ABD: soft, nontender, nondistended NEURO: awake, alert, oriented, no focal deficits Objective Labs 07/14/22 05:43 07/14/22 05:43 [facility] Medical History Acute renal insufficiency Benign prostatic hyperplasia Bilateral hydronephrosis Bilateral renal stones Elevated serum creatinine Lower urinary tract symptoms Family History Mother Hypertension Stroke Social History household members: spouse Smoking Status: Former smoker alcohol intake: current Discharge Plan Discharge Plan Patient Disposition: Home Provider Discharge Comment: Mr. Higgins came in to the hospital with urinary retention and a urine infection. The urine infection did get to the blood so he will need an additional week of antibiotics, with augmentin. He will follow up with urology within one week for follow up for his chamberlain catheter that will remain in place. He should follow up with his pcp in 1-2 weeks. Discharge orders & Medications Prescriptions: New amoxicillin-pot clavulanate 875-125 mg tablet 1 tab PO BID Qty: 14 0RF Continued ASPIRIN (Aspirin Low Dose) 81 mg PO DAILY Qty: 0 Rx Instructions: takes at night tadalafil 5 mg tablet 5 mg PO DAILY Patient Comments: TAKE ONE TABLET BY MOUTH ONE TIME DAILY Rx Instructions: takes at night multivitamin Tablet 1 tab PO DAILY Rx Instructions: takes at night lovastatin 40 mg Tablet 40 mg PO QPM levothyroxine 50 mcg Tablet 50 mcg PO DAILY Rx Instructions: takes at night time ascorbate calcium (vitamin C) 500 mg Capsule 1,000 mg PO DAILY cholecalciferol (vitamin D3) 50 mcg (2,000 unit) Tablet 50 mcg PO DAILY tamsulosin 0.4 mg capsule 0.8 mg PO BID finasteride 5 mg tablet 5 mg PO DAILY Qty: 30 12RF Follow up/Referrals: Eros Koo MD [Physician] - 07/21/22 8:45 am (Appt:07/21 @ 8;45 for voiding trial after catheter removal dx:urinary retention, kidney stone s/p stents) Mayda Rodriguez PA-C [Primary Care Provider] - 07/24/22 9:00 am (Appt:07/24 @ 9:00 with gil michael- bring id & insurance cards if you need cancel please give 24 hr notice dx:multiple recent admissions, kidney stone, urinary retention, urine/blood infection) Diet/Activity/Treatments Diet: Regular Catheter: 2-way Chamberlain Visit Report/Discharge Packet Instructions: How to Care for Your Chamberlain Catheter -- Male, Urinary Tract Infect ion, How to Use Antibiotics Wisely Stand Alone Forms: Patient Portal/API, Stroke Signs & Symptoms Discharge Data Primary Care Provider: Mayda Rodriguez Discharges patient from system. Discharge Date/Time: 07/14/22 14:46 Quality VTE Deep Vein Thrombosis/Pulmonary Embolism Present on Admission: No
== END 2022-07-14 14:46 | disposition home or self-care (01) | DRG 698 ==
LOC: ED 12:03 → AC 15:49
PROVIDERS: Emergency Medicine; Admitting Provider Family Medicine; Emergency Provider Registered Nurse; PCP Physician Assistant; Referring Provider Registered Nurse; Visit Provider Family Medicine
DX: T83.511A Infection and inflammatory reaction due to indwelling urethral catheter, initial encounter (principal); A41.9 Sepsis, unspecified organism; R65.20 Severe sepsis without septic shock; N17.9 Acute kidney failure, unspecified; E87.1 Hypo-osmolality and hyponatremia; N39.0 Urinary tract infection, site not specified; N40.0 Benign prostatic hyperplasia without lower urinary tract symptoms; E03.9 Hypothyroidism, unspecified; B96.20 Unspecified Escherichia coli [E. coli] as the cause of diseases classified elsewhere; E78.5 Hyperlipidemia, unspecified; Z20.822 Contact with and (suspected) exposure to COVID-19; Z87.891 Personal history of nicotine dependence; R33.9 Retention of urine, unspecified
CPT/HCPCS: 36415; 51798; 71045; 74176; 80048; 80053; 81001; 82550; 83036; 83605; 83690; 84145; 84484; 85025; 85610; 85730; 87040; 87077; 87086; 87154; 87186; 87635; 93005; 93010; 96365; 97161; 99283; 99285; 99291; C9803; J0696; J1644; J2405

== ENCOUNTER → 2022-07-21 14:09 | Outpatient (CLI) | payer MEDICARE, SELFPAY ==
[2022-07-11 15:59] VITALS: BMI 24.6
== END ==
PROVIDERS: PCP Physician Assistant; Visit Provider Urology
DX: N39.0 Urinary tract infection, site not specified (principal); R33.8 Other retention of urine; T83.511A Infection and inflammatory reaction due to indwelling urethral catheter, initial encounter
CPT/HCPCS: 51702; 51798; 87086

== ENCOUNTER → 2022-07-22 09:49 | Outpatient (CLI) | payer MEDICARE, SELFPAY ==
[2022-07-11 15:59] VITALS: BMI 24.6
[2022-07-22 17:54] LABS: Clostridium Difficile Tox PCR Negative for C. diff (Negative)
== END ==
PROVIDERS: PCP Physician Assistant; Referring Provider Urology; Visit Provider Urology
DX: N39.0 Urinary tract infection, site not specified (principal); R33.8 Other retention of urine; T83.511A Infection and inflammatory reaction due to indwelling urethral catheter, initial encounter
CPT/HCPCS: 87493

== ENCOUNTER → 2022-07-30 07:54 | Outpatient (CLI) | payer MEDICARE, SELFPAY ==
[2022-07-11 15:59] VITALS: BMI 24.6
== END ==
PROVIDERS: PCP Physician Assistant; Visit Provider Urology
DX: N13.30 Unspecified hydronephrosis (principal); N20.0 Calculus of kidney; N39.0 Urinary tract infection, site not specified; R33.9 Retention of urine, unspecified; R39.9 Unspecified symptoms and signs involving the genitourinary system; T83.511A Infection and inflammatory reaction due to indwelling urethral catheter, initial encounter
CPT/HCPCS: 87077; 87086; 87186

== ENCOUNTER 2022-08-04 07:58 | Day surgery (SDC) | payer MEDICARE, SELFPAY ==
[2022-07-11 15:59] VITALS: BMI 24.6
[2022-07-29 11:46] VITALS: BMI 27.1
[2022-08-04 08:20] VITALS: BP 109/63; PULSE 82; RESP 18; TEMP 36.2; O2SAT 98; BMI 27.1
[2022-08-04] MEDS: CEFAZOLIN 2 GM/100 ML PREMIX 100 ML IV (09:40)
--- NOTE | 2022-08-04 10:01 | SUR.OPER ---
Lithotomy on padded OR bed, head on pillow, arms secured on padded arm boards at <90 degrees abduction. Legs secured in padded yellow fins stirrups.
[2022-08-04] MEDS: LACTATED RINGERS 1,000 ML 21 ML IV (10:13)
--- NOTE | 2022-08-04 10:30 | PM.OP.1 ---
Procedure & Clinicians Procedure: Photo vaporization of prostate Same procedure as scheduled: Yes Indications: This is an 82-year-old male who went into urinary retention due to an obstructing prostate. He presents at this time for photo vaporization of his prostate to relieve the obstructive component. Of note patient does have bilateral stents secondary to having bilateral stones. Surgeon: Eros Koo Click Yes if Unassisted: Yes Anesthesia Type: General Operative Notes Findings: Urethra urethral meatus are normal with normal mucosa. Sphincter as well coapted. Prostate shows marked bilobar obstructive character there is no median lobe. The right and left ureteral orifice had stents in place and in good position. The bladder mucosa was otherwise normal. At the end of the procedure the prostatic fossa was widely patent and with the bladder full and the scope removed a vigorous stream was noted. Total laser energy was 128,686 joules total laser time 13 minutes 55 seconds this was applied at 180 w. A 22 [place] [address] Solis catheter was left in place with 14 cc in the balloon. Closure Type: not applicable Specimen(s): none sent Applied: catheter (Twenty-two Citizen [place] [address] Solis catheter with 14 cc in the balloon.) Estimated Blood Loss (mL): 5 Blood products transfused: none Procedure in detail: Procedure in detail: After informed consent was obtained, the patient was identified and brought to the operating room where he was placed in his supine position on the table. He then had anesthesia induced and maintained. Ensuring an adequate level of anesthesia the patient was transitioned to the lithotomy position where he was prepped, draped, prepared for Transurethral procedure. After prepping, draping, time-out and ensuring an adequate level of anesthesia the continuous-flow laser resectoscope was passed through the urethra prostate and into the bladder under direct vision. Cystoscopy was then performed. The working element was then inserted the laser fiber inserted in the level of the verumontanum marked on the lateral lobes with the laser to denote the distal extent of vaporization. Then starting in the sulci right and left a flow channel was made using the laser. The right and left lateral lobes were then vaporized from the bladder neck to the verumontanum till the prostatic fossa was open and widely patent. This required [id number] joules. With this accomplished cystoscopy was performed the stents and ureteral orifices were unaffected by the procedure. The bladder was left full and the 22 [place] catheter passed into the bladder with the aid of a catheter guide. The balloon was filled 14 cc of sterile water and the catheter placed to gravity drainage. The patient was awakened having tolerated the procedure well he was transferred to the postanesthesia care unit for recovery he will be discharged home with his Solis catheter to follow up in my office in the morning for voiding trial. There were no complications. Complications: none Post-operative Condition: stable Disposition: PACU Plan for aftercare: Patient to be discharged to home to follow up my office in the morning for voiding trial. Patient will go home with this Solis catheter.
[2022-08-04 10:33] VITALS: BP 93/55; PULSE 85; RESP 18; TEMP 36.1; O2SAT 94
[2022-08-04 10:37] VITALS: BP 100/59; PULSE 82; RESP 13; O2SAT 93
[2022-08-04 10:42] VITALS: BP 100/59; PULSE 80; RESP 16; O2SAT 96
[2022-08-04 10:47] VITALS: BP 105/62; PULSE 79; RESP 10; TEMP 36.1; O2SAT 97
[2022-08-04 10:51] VITALS: BP 107/64; PULSE 77; RESP 10; O2SAT 97
== END 2022-08-04 11:20 | disposition home or self-care (01) ==
PROVIDERS: PCP Physician Assistant; Referring Provider Urology; Visit Provider Urology
PROC: (CPT 52648; principal; 2022-08-04 09:30)
DX: N40.1 Benign prostatic hyperplasia with lower urinary tract symptoms (principal); N32.0 Bladder-neck obstruction; R33.8 Other retention of urine; N20.0 Calculus of kidney; Z96.0 Presence of urogenital implants
CPT/HCPCS: 52648; J0690; J1170; J2405; J2704; J3010

== ENCOUNTER → 2022-08-05 16:41 | Outpatient (CLI) | payer MEDICARE, SELFPAY ==
[2022-07-11 15:59] VITALS: BMI 24.6
== END ==
PROVIDERS: PCP Physician Assistant; Visit Provider Urology
DX: N39.0 Urinary tract infection, site not specified (principal); T83.511A Infection and inflammatory reaction due to indwelling urethral catheter, initial encounter
CPT/HCPCS: 51702; 51798; 87086

== ENCOUNTER → 2022-08-20 07:51 | Outpatient (CLI) | payer MEDICARE, SELFPAY ==
[2022-07-11 15:59] VITALS: BMI 24.6
--- NOTE | 2022-08-20 08:43 | DI.RAD.S_ITS ---
PROCEDURE: XR KUB INDICATIONS: Kidney stone TECHNIQUE: One view of the abdomen acquired. COMPARISON: [facility], CR, XR ABDOMEN 1V, 06/27/2022, 4:34. [facility], CT, CT KIDNEY URETER BLADDER (KUB), 06/27/2022, 0:44. [facility], CT, CT KIDNEY URETER BLADDER (KUB), 07/11/2022, 14:23. FINDINGS: Surgical changes and devices: Bilateral ureteral stents are present, a normal in morphology position. Bowel: Bowel gas pattern is normal. Soft tissues: Multiple calculi are seen in proximal right ureter. The largest stone measures 2.2 cm. No definitive left renal or ureteral stones. Visualized solid organ contours appear normal in size. Bones: No suspicious bony lesions. IMPRESSION: 1. Bilateral ureteral stents. 2. Proximal right ureteral stones are present. 3. No left renal or ureteral stones can be seen. Dictated by: Alexandra Moreno M.D. on 08/20/2022 at 11:21 Approved by: Alexandra Moreno M.D. on 08/20/2022 at 11:23
== END ==
PROVIDERS: PCP Physician Assistant; Referring Provider Urology; Visit Provider Urology
DX: T83.511A Infection and inflammatory reaction due to indwelling urethral catheter, initial encounter (principal); N39.0 Urinary tract infection, site not specified; A04.72 Enterocolitis due to Clostridium difficile, not specified as recurrent; N20.0 Calculus of kidney; N13.30 Unspecified hydronephrosis; N28.9 Disorder of kidney and ureter, unspecified; R33.9 Retention of urine, unspecified; R39.9 Unspecified symptoms and signs involving the genitourinary system
CPT/HCPCS: 51798; 74018; 81002; 87077; 87086; 87186; 99214

== ENCOUNTER → 2022-08-26 13:18 | Outpatient (CLI) | payer MEDICARE, SELFPAY ==
[2022-07-11 15:59] VITALS: BMI 24.6
--- NOTE | 2022-08-26 13:19 | DI.CT.S_ITS ---
PROCEDURE: CT ABDOMEN PELVIS WO CON INDICATIONS: Follow-up kidney stones TECHNIQUE: Noncontrast 5 mm thick sections acquired from the diaphragms to the symphysis. 5 mm coronal and sagittal reformats were then performed. For radiation dose reduction, the following was used: automated exposure control, adjustment of mA and/or kV according to patient size. COMPARISON: [facility], CT, CT KIDNEY URETER BLADDER (KUB), 07/11/2022, 14:23. FINDINGS: Image quality: Excellent. ABDOMEN: Lung bases: Lung bases are clear. Chronic elevation of the right hemidiaphragm. Heart size is normal. Severe coronary artery calcifications. Solid organs: Right kidney: Significant multifocal cortical atrophy is unchanged. There is moderate hydronephrosis, not significantly changed from the previous study. There is been interval development of lower pole minor calyceal stones. Again noted is a large renal pelvic stone impacted at the UPJ, measuring 2.1 cm. It has a Hounsfield measurement of 1071.4. Right ureter: A double-J ureteral stent is again noted. The ureter is decompressed. A stent is unchanged in location, satisfactorily placed. Left kidney: No stone or hydronephrosis. Left ureter: Double-J ureteral stent in satisfactory position. Bladder: No bladder stones. No bladder wall thickening. Bilateral ureteral stents are in place. There is moderate to severe enlargement of the prostate. Liver is normal in size. Gallbladder is contracted, within normal limits. . Pancreas is normal in contours. Spleen is normal in size. No adrenal nodules. Peritoneum and bowel: Unenhanced bowel loops demonstrate normal wall thickness and caliber. Moderately large right colonic fecal debris. No free fluid or air. Nodes and vessels: No retroperitoneal or mesenteric adenopathy by size criteria. Aorta and inferior vena cava are normal in caliber. Miscellaneous: No ventral hernias. PELVIS: Genitourinary: Bladder wall thickness is normal. Miscellaneous: No inguinal hernias or adenopathy. Bones: No suspicious bony lesions. No vertebral body compression fractures. IMPRESSION: 1. Again noted is a large impacted stone in the right UPJ. A right double-J stent is in satisfactory position. There is unchanged moderate hydronephrosis. There is been interval development of additional lower pole minor calyceal stones. 2. Left double-J ureteral stent in place. No left hydronephrosis. 3. Severe coronary artery calcifications. 4. Moderate to severe enlargement of the prostate. Dictated by: Kory Pitts M.D. on 08/26/2022 at 16:42 Approved by: Kory Pitts M.D. on 08/26/2022 at 16:48
== END ==
PROVIDERS: PCP Physician Assistant; Referring Provider Urology; Visit Provider Urology
DX: N13.2 Hydronephrosis with renal and ureteral calculous obstruction (principal); N40.0 Benign prostatic hyperplasia without lower urinary tract symptoms; I25.10 Atherosclerotic heart disease of native coronary artery without angina pectoris; Z96.0 Presence of urogenital implants
CPT/HCPCS: 74176

== ENCOUNTER → 2022-09-04 08:56 | Outpatient (CLI) | payer MEDICARE, SELFPAY ==
[2022-09-03 11:11] VITALS: BMI 24.6
== END ==
PROVIDERS: PCP Physician Assistant; Visit Provider Urology
DX: N13.30 Unspecified hydronephrosis (principal); N20.0 Calculus of kidney; N39.0 Urinary tract infection, site not specified; R33.9 Retention of urine, unspecified; R39.9 Unspecified symptoms and signs involving the genitourinary system; T83.511A Infection and inflammatory reaction due to indwelling urethral catheter, initial encounter; Z87.448 Personal history of other diseases of urinary system; Z98.890 Other specified postprocedural states; Z96.0 Presence of urogenital implants
CPT/HCPCS: 51798; 81002; 87086; 99214

== ENCOUNTER 2022-09-15 07:23 | Day surgery (SDC) | payer MEDICARE, SELFPAY ==
[2022-09-03 11:11] VITALS: BMI 24.6
[2022-09-09 10:04] VITALS: BMI 26.6
[2022-09-15 07:54] VITALS: BP 120/68; PULSE 61; RESP 16; TEMP 36.4; O2SAT 97; BMI 26.6
[2022-09-15] MEDS: LACTATED RINGERS 1,000 ML 21 ML IV (07:55)
--- NOTE | 2022-09-15 08:35 | PM.PREOP ---
Pre-operative Note COVID-19 COVID-19 status: Not tested Criteria for continued procedure: Non-surgical alternatives not available or appropriate per current SOC Interval Note History & Physical reviewed/Exam performed by Physician: Yes Changes to H&P: No
[2022-09-15] MEDS: CEFAZOLIN 2 GM/100 ML PREMIX 100 ML IV (08:52)
--- NOTE | 2022-09-15 09:01 | SUR.OPER ---
Supine on ESWL table, head on pillow, arms padded with gel, legs uncrossed.
[2022-09-15 09:47] VITALS: BP 116/67; PULSE 56; RESP 15; TEMP 36.1; O2SAT 94
[2022-09-15 09:52] VITALS: BP 110/69; PULSE 56; RESP 18; O2SAT 93
--- NOTE | 2022-09-15 09:55 | PM.OP.1 ---
Procedure & Clinicians Procedure: Right extracorporeal shockwave lithotripsy Same procedure as scheduled: Yes Indications: This is a 82-year-old male who presented with bilateral stones and ureteral obstruction and had bilateral stents placed. The patient would undergo into urinary retention subsequently had photo vaporization of the prostate in his now urinating well he presents this time to treat the right-sided stones which are the greater volume of stones. The left-sided stone is he ureteral stone will be dealt with at a later date. Surgeon: Eros Koo Click Yes if Unassisted: Yes Anesthesia Type: General Operative Notes Findings: Findings: Large right-sided stone with several satellite stones as noted in the renal pelvis. The stone had 3000 shocks at level 7 and somewhat amazingly broke up very very well as well as the other satellite stones. I would have estimated that this would take a couple of treatments but it appears that everything is well treated at this point. There were no other findings or abnormalities. Closure Type: not applicable Specimen(s): none sent Estimated Blood Loss (mL): 0 Blood products transfused: none Procedure in detail: Procedure in detail: After informed consent was obtained, the patient was identified and brought to the operating room where he is placed in a supine position of the Lithotripter. Once in the supine position the patient had anesthesia induced and maintained. Ensuring an adequate level of anesthesia and after time-out the stone was targeted via the imaging system and shockwave delivered up to level 7. There was periodic reimaging and re localization to ensure maximal energy delivery to the stone and its satellites and it appeared that it fragmented completely. With 3000 shocks delivered the procedure was stop the shockwave head was rotated out and fluoroscopy performed which again revealed what appeared to be no large fragments and homogeneous fragmentation of the stone. At this point the patient was awakened having tolerated the procedure well and transferred to the postanesthesia care unit for recovery there were no complications. Complications: none Post-operative Condition: stable Disposition: PACU Plan for aftercare: Patient to be discharged to home to strain his urine save any fragments and bring them to follow-up.
[2022-09-15 09:57] VITALS: BP 131/101; PULSE 56; RESP 14; O2SAT 94
[2022-09-15 10:15] VITALS: BP 130/68; PULSE 64; RESP 16; TEMP 36.4; O2SAT 99
== END 2022-09-15 10:22 | disposition home or self-care (01) ==
PROVIDERS: PCP Physician Assistant; Referring Provider Urology; Visit Provider Urology
PROC: (CPT 50590; principal; 2022-09-15 09:00)
DX: N20.0 Calculus of kidney (principal)
CPT/HCPCS: 50590; 82962; J0690; J1100; J2405; J2704

== ENCOUNTER → 2022-10-07 09:22 | Outpatient (CLI) | payer MEDICARE, SELFPAY ==
[2022-09-03 11:11] VITALS: BMI 24.6
--- NOTE | 2022-10-07 09:23 | DI.RAD.S_ITS ---
PROCEDURE: XR KUB INDICATIONS: kidney stone TECHNIQUE: One view of the abdomen acquired. COMPARISON: [facility], CR, XR KUB, 08/20/2022, 8:52. FINDINGS: Surgical changes and devices: Bilateral ureteral stents are seen. Bowel: Bowel gas pattern is normal. Soft tissues: Previously noted 2.2 cm right renal stone is no longer seen. There is suggestion of a small cluster of calcifications projecting in the region of proximal right ureter measures 2 x 1.7 cm in size. Visualized solid organ contours appear normal in size. Bones: No suspicious bony lesions. IMPRESSION: Bilateral ureteral stents in place. Previously described large right renal stone is no longer seen. Suggestion of a clustered small stones in the region of proximal right ureter as above. Dictated by: Broderick Gallagher M.D. on 10/07/2022 at 10:21 Approved by: Broderick Gallagher M.D. on 10/07/2022 at 10:24
[2022-10-16 09:17] LABS: Ca oxalate dihydrate 30 % (.); Ca oxalate monohydr 70 % (.); Size 2x2 mm (.)
== END ==
PROVIDERS: PCP Physician Assistant; Referring Provider Urology; Visit Provider Urology
DX: N20.0 Calculus of kidney (principal); Z96.0 Presence of urogenital implants
CPT/HCPCS: 74018; 82365

== ENCOUNTER → 2022-10-21 09:04 | Outpatient (CLI) | payer MEDICARE, SELFPAY ==
[2022-09-03 11:11] VITALS: BMI 24.6
--- NOTE | 2022-10-21 09:05 | DI.RAD.S_ITS ---
PROCEDURE: XR KUB INDICATIONS: Follow-up kidney stones TECHNIQUE: One view of the abdomen acquired. COMPARISON: [facility], CR, XR KUB, 10/07/2022, 9:37. [facility], CR, XR KUB, 08/20/2022, 8:52. FINDINGS: Surgical changes and devices: Bilateral ureteral stents are seen. Bowel: Bowel gas pattern is normal. Soft tissues: No suspicious abdominal calcifications to suggest nephroureterolithiasis.. Visualized solid organ contours appear normal in size. Bones: No suspicious bony lesions. IMPRESSION: Bilateral ureteral stents are in place with unchanged positioning. Dictated by: Srinivas Bronson M.D. on 10/21/2022 at 10:11 Approved by: Srinivas Bronson M.D. on 10/21/2022 at 10:12
== END ==
PROVIDERS: PCP Physician Assistant; Referring Provider Urology; Visit Provider Urology
DX: N20.0 Calculus of kidney (principal); Z96.0 Presence of urogenital implants
CPT/HCPCS: 74018

== ENCOUNTER → 2022-10-23 09:43 | Outpatient (CLI) | payer MEDICARE, SELFPAY ==
[2022-09-03 11:11] VITALS: BMI 24.6
== END ==
PROVIDERS: PCP Physician Assistant; Visit Provider Urology
DX: N17.9 Acute kidney failure, unspecified (principal); N20.0 Calculus of kidney; T83.511A Infection and inflammatory reaction due to indwelling urethral catheter, initial encounter; N39.0 Urinary tract infection, site not specified; R33.9 Retention of urine, unspecified; Z98.890 Other specified postprocedural states; Z87.448 Personal history of other diseases of urinary system
CPT/HCPCS: 81002; 87086

== ENCOUNTER → 2022-11-04 09:51 | Outpatient (CLI) | payer MEDICARE, SELFPAY ==
[2022-09-03 11:11] VITALS: BMI 24.6
--- NOTE | 2022-11-04 09:51 | DI.RAD.S_ITS ---
PROCEDURE: XR KUB INDICATIONS: Follow-up kidney stones TECHNIQUE: One view of the abdomen acquired. COMPARISON: [facility], CT, CT ABDOMEN PELVIS WO CON, 08/26/2022, 13:35. [facility], CR, XR KUB, 10/21/2022, 9:10. [facility], CR, XR KUB, 10/07/2022, 9:37. FINDINGS: Surgical changes and devices: None. Bowel: Bowel gas pattern is normal. Soft tissues: Bilateral nephroureteral stents present. Interval lithotripsy, with a significant grouping of small calcifications projecting over the right pelvic inlet, largest measuring 5 millimeters. Additional 5 millimeter stone projects over the proximal right ureter. Bones: No suspicious bony lesions. IMPRESSION: Interval lithotripsy and placement of bilateral nephroureteral stents. Significant number of calcifications projecting over the right pelvic inlet, largest measuring 5 millimeters. Additional 5 millimeter stone projects over the right proximal right ureter Dictated by: Raman Ojeda M.D. on 11/04/2022 at 10:44 Approved by: Raman Ojeda M.D. on 11/04/2022 at 10:46
== END ==
PROVIDERS: PCP Physician Assistant; Referring Provider Urology; Visit Provider Urology
DX: N20.0 Calculus of kidney (principal)
CPT/HCPCS: 74018

== ENCOUNTER → 2022-11-06 08:31 | Outpatient (CLI) | payer MEDICARE, SELFPAY ==
[2022-09-03 11:11] VITALS: BMI 24.6
[2022-11-13 12:50] LABS: Ca oxalate monohydr 100 % (.); Size 3x3 mm (.)
== END ==
PROVIDERS: PCP Physician Assistant; Visit Provider Urology
DX: N20.0 Calculus of kidney (principal); R39.12 Poor urinary stream; N40.1 Benign prostatic hyperplasia with lower urinary tract symptoms; Z87.448 Personal history of other diseases of urinary system; Z98.890 Other specified postprocedural states; Z68.27 Body mass index [BMI] 27.0-27.9, adult
CPT/HCPCS: 81002; 82365; 87077; 87086; 87186; 99214

== ENCOUNTER → 2022-11-18 15:54 | Outpatient (CLI) | payer MEDICARE, SELFPAY ==
[2022-09-03 11:11] VITALS: BMI 24.6
== END ==
PROVIDERS: PCP Physician Assistant; Visit Provider Urology
DX: R33.9 Retention of urine, unspecified (principal); Z01.818 Encounter for other preprocedural examination; N20.0 Calculus of kidney; Z87.448 Personal history of other diseases of urinary system; Z98.890 Other specified postprocedural states; Z96.0 Presence of urogenital implants
CPT/HCPCS: 81002; 87077; 87086; 87186; 99214

== ENCOUNTER 2022-11-24 05:55 | Day surgery (SDC) | payer MEDICARE, SELFPAY ==
[2022-09-03 11:11] VITALS: BMI 24.6
[2022-11-23 12:13] VITALS: BMI 26.6
[2022-11-24] VITALS (7 sets, daily range): BP systolic 115–130; BP diastolic 67–76; PULSE 63–80; RESP 12–20; TEMP 35.9–36.7; O2SAT 94–97; BMI 26.4
[2022-11-24] MEDS: LACTATED RINGERS 1,000 ML 21 ML IV (06:53)
--- NOTE | 2022-11-24 07:38 | PM.PREOP ---
Pre-operative Note COVID-19 COVID-19 status: Not tested Interval Note History & Physical reviewed/Exam performed by Physician: Yes Changes to H&P: No
[2022-11-24] MEDS: levoFLOXacin 500 MG/100 ML PIGGYBACK 100 MG IV (07:48)
--- NOTE | 2022-11-24 07:53 | SUR.OPER ---
Supine on padded ESWL table, head on pillow, arms padded and tucked at sides, legs uncrossed.
--- NOTE | 2022-11-24 08:24 | P.OP_ITS ---
Procedure & Clinicians Procedure: Right extracorporeal shockwave lithotripsy Same procedure as scheduled: Yes Indications: This 82-year-old gentleman presents for right extracorporeal shockwave lithotripsy related to a large right-sided stone that he had previously treated with right extracorporeal shockwave lithotripsy. He is pale to face all the fragments and there are some larger fragments that bear extracorporeal shockwave lithotripsy and patient presents this time for further treatment of his right- sided stones. Surgeon: Eros Koo Click Yes if Unassisted: Yes Anesthesia Type: General Operative Notes Findings: Findings: Right-sided and left-sided stent in good position. There is a ?cloud of stones around the stent ?a result of his previous extracorporeal shockwave lithotripsy. Distal in the ureter there is a dense her stone which received 500 shocks at level 7 and appeared to fragment quite well the cloud of stones received 900 shocks at level 7 and again appeared to further fragment and then to the right there were a couple of denser fragments which received a total of 600 shocks at level 7 and also appeared to fragment well. There were no other abnormalities or complications. Closure Type: not applicable Specimen(s): none sent Estimated Blood Loss (mL): 0 Procedure in detail: Procedure in detail after informed consent was obtained, the patient was identified and brought to the operating room where he was placed in his supine position on the Lithotripter. Once on the Lithotripter patient had anesthesia induced and maintained. At this point ensuring an adequate level of anesthesia and after time-out the distal stone was targeted via the imaging system shockwave delivered at level 7 with periodic reimaging and re localization to ensure maximal energy delivery to the stone. The cloud with stones which was proximal or superior to this stone was then targeted and received a total of 900 shocks at level 7 with periodic reimaging and re localization to ensure maximal energy delivered to the stones. The denser stone that were to the right were then targeted and received a total of 600 shocks and appeared to fragment well. At this point the shockwave head was rotated out and fluoroscopy performed again the stones appeared to be well fragmented and the patient was awakened having tolerated the procedure well there were no complications. The patient was then transferred to the postanesthesia care unit for recovery to be discharged to home to follow-up in my office. Complications: none Post-operative Condition: stable Disposition: PACU Plan for aftercare: Discharge to home follow up my office in approximately 10-14 days. Patient is to strain all urine and save any fragments to bring to follow-up.
--- NOTE | 2022-11-24 09:07 | SUR.PHASEII ---
ready for DC. in WC. waiting for ride.
--- NOTE | 2022-11-24 09:46 | SUR.PHASEII ---
Sitting in chair. Drinking coffee. Waiting for ride.
== END 2022-11-24 10:15 | disposition home or self-care (01) ==
PROVIDERS: PCP Physician Assistant; Referring Provider Urology; Visit Provider Urology
PROC: (CPT 50590; principal; 2022-11-24 07:45)
DX: N20.1 Calculus of ureter (principal)
CPT/HCPCS: 50590; J1100; J1956; J2405; J2704; J3010

== ENCOUNTER 2022-11-25 13:32 | Emergency (ER) | payer MEDICARE, SELFPAY ==
[2022-09-03 11:11] VITALS: BMI 24.6
[2022-11-25 13:35] VITALS: BP 135/70; PULSE 67; RESP 18; TEMP 36.8; O2SAT 98; BMI 26.4
[2022-11-25 15:00] VITALS: BP 134/71; PULSE 61; RESP 18; TEMP 36.9; O2SAT 98
--- NOTE | 2022-11-25 16:33 | ED.EXTPRO ---
HPI - Extremity Problem <Lola Parker PA-C - Last Filed: 11/25/22 16:40> General Chief complaint: Extremity Problem,Nontraumatic Stated complaint: Lower leg pain bilateral Time Seen by Provider: 11/25/22 14:44 Source: patient Mode of arrival: Ambulatory History of Present Illness HPI Narrative: Patient is a 82-year-old male who presents with bilateral lower extremity pain. He has had a complicated course of kidney stones with a recurrent pyelonephritis and stent placement. Yesterday he underwent lithotripsy with Dr. Koo. Was started on levofloxacin 2 days ago for infection. Starting last night after his lithotripsy he developed bilateral pain in his posterior lower legs, at the insertion of the calcaneal tendon. He has no history of blood clots, does not take any anticoagulants except a baby aspirin every day. There is no calf tenderness or warmth or swelling. Related Data Home Medications Medication Instructions Recorded Confirmed aspirin 81 mg capsule 81 mg PO DAILY ##0 10/23/06 11/24/22 ascorbate calcium (vitamin C) 500 1,000 mg PO DAILY 06/27/22 11/24/22 mg capsule cholecalciferol (vitamin D3) 50 50 mcg PO DAILY 06/27/22 11/24/22 mcg (2,000 unit) tablet levothyroxine 50 mcg tablet 50 mcg PO DAILY 06/27/22 11/24/22 lovastatin 40 mg tablet 40 mg PO QPM 06/27/22 11/24/22 multivitamin 1 tab PO DAILY 06/27/22 11/24/22 tadalafil 5 mg tablet 5 mg PO DAILY 06/27/22 11/24/22 tamsulosin 0.4 mg capsule 0.8 mg PO BID 07/09/22 11/24/22 Previous Rx's Medication Instructions Recorded sulfamethoxazole 800 1 tab PO Q12H #14 tabs 11/25/22 mg-trimethoprim 160 mg tablet (Bactrim DS) Allergies Allergy/AdvReac Type Severity Reaction Status Date / Time Penicillins Allergy Intermediate Rash-childhood Verified 11/24/22 06:34 reaction Review of Systems <Lola Parker PA-C - Last Filed: 11/25/22 16:40> Review of Systems ROS Unobtainable: All systems reviewed & are unremarkable except as noted in HPI and below Patient History <Lola Parker PA-C - Last Filed: 11/25/22 16:40> Medical History S/P extracorporeal shock wave therapy (09/15/22) Retained ureteral stent History of hydronephrosis History of renal insufficiency History of renal failure Hypothyroidism Urinary retention Benign prostatic hyperplasia Lower urinary tract symptoms Elevated serum creatinine Acute renal insufficiency Bilateral hydronephrosis Bilateral renal stones Surgical History Hx of surgical procedure (08/04/22) History of prostate surgery History of urologic surgery (06/27/22) Family History Mother Hypertension Stroke Social History household members: spouse Smoking Status: Former smoker alcohol intake: current Smoking Status: Former smoker alcohol intake frequency: holidays/special occasions only Substance Use Type: does not use Exam <Lola Parker PA-C - Last Filed: 11/25/22 16:40> Narrative Exam Narrative: GENERAL: 82 year old patient appears stated age. Well-developed patient, in no distress. NEURO: AOx3. HEAD: Atraumatic. Normocephalic. EYES: Pupils equal round and reactive. Extraocular motions intact. No scleral icterus. No injection or drainage. ENT: Nose without bleeding or purulent drainage. Airway patent. RESPIRATORY: No distress or increased work of breathing EXTREMITIES: No edema or joint tenderness. Point tenderness over the mid posterior calf, of the location of the calcaneal tendon insertion. Gastrocnemius muscles are supple, no calf tenderness, swelling, erythema or warmth. SKIN: No rash or erythema of visible areas Initial Vital Signs Initial Vital Signs: Vital Signs Temperature 98.2 F 11/25/22 13:35 Pulse Rate 67 11/25/22 13:35 Respiratory Rate 18 11/25/22 13:35 Blood Pressure 135/70 11/25/22 13:35 Pulse Oximetry 98 11/25/22 13:35 Oxygen Delivery Method Room Air 11/25/22 13:35 <Eros Hatch MD - Last Filed: 12/01/22 08:14> Initial Vital Signs Initial Vital Signs: Vital Signs Temperature 98.2 F 11/25/22 13:35 Pulse Rate 67 11/25/22 13:35 Respiratory Rate 18 11/25/22 13:35 Blood Pressure 135/70 11/25/22 13:35 Pulse Oximetry 98 11/25/22 13:35 Oxygen Delivery Method Room Air 11/25/22 13:35 Scores <Lola Parker PA-C - Last Filed: 11/25/22 16:40> Magnus' Criteria for DVT Active Cancer (Treatment within 6 months): No Bedridden recently >3 days or major surgery within 4 weeks: No Calf Swelling >3cm compared to other leg: No Collateral (nonvericose) superficial veins present: No Entire leg swollen: No Localized tenderness along the deep vein system: Yes Pitting edema, confined to symtomatic leg: No Paralysis, paresis, or recent plaster immobilization of ext: No Previously documented DVT: No Alternative dx to DVT as likely or more likely: Yes Bety criteria for DVT: -1 <Eros Hatch MD - Last Filed: 12/01/22 08:14> Bety Criteria for DVT Magnus' criteria for DVT: -1 Course <Lola Parker PA-C - Last Filed: 11/25/22 16:40> Vital Signs Vital signs: Vital Signs - 8 hr 11/25/22 13:35 11/25/22 15:00 Temperature 98.2 F 98.4 F Pulse Rate 67 61 Respiratory Rate 18 18 Blood Pressure 135/70 134/71 Pulse Oximetry 98 98 Oxygen Delivery Method Room Air Room Air <Eros Hatch MD - Last Filed: 12/01/22 08:14> Vital Signs Vital signs: Vital Signs - 8 hr 11/25/22 13:35 11/25/22 15:00 Temperature 98.2 F 98.4 F Pulse Rate 67 61 Respiratory Rate 18 18 Blood Pressure 135/70 134/71 Pulse Oximetry 98 98 Oxygen Delivery Method Room Air Room Air MDM - Extremity (Nontraumatic) <Lola Parker PA-C - Last Filed: 11/25/22 16:40> MDM Narrative Medical decision making narrative: Multiple etiologies for patient's symptoms considered including, but not limited to: DVT, tendinopathy, cellulitis, muscle strain. Patient has no history of DVT and low risk based on Wells score. He did have a procedure yesterday but no significant immobilization. The symptoms are bilateral and she has no visible symptoms on assessment, which makes DVT less likely. I suspect he is having a tendinopathy secondary to taking levofloxacin, which is known to have the side effect. His last several urine cultures were also sensitive to Bactrim and he does not have any contraindications to taking Bactrim. I will switch him to Bactrim for 7 days and he will follow up with Dr. Koo in 1 week. If the pain increases or he develops any swelling, redness, warmth or fever or other symptoms he should return for reassessment. Patient's symptoms improved over duration of stay with above-stated therapies. Findings and discharge diagnosis discussed with patient/family followed by verbalization of understanding Return precautions discussed with patient/family whom verbalize understanding of diagnosis and plan Discharge Plan Departure Patient Disposition: Home Clinical Impression: Bilateral renal stones, Retained ureteral stent, Tendinopathy of lower extremity Instructions: DI for Kidney Stones Activity Restrictions/Additional Instructions: * as we discussed, I suspect that your bilateral calf pain is tendinopathy, which is a somewhat common side effect of the levofloxacin antibiotic. I will switch you to a medication called Bactrim, which your urine culture has been sensitive to as well. Please stop taking the levofloxacin and start taking the new antibiotic. Drink plenty of water. Follow up as scheduled with Dr. Koo next week. If this pain does not subside or if you develop worsening pain, please return for reassessment. *What to do: *Please continue to take your regular medications as directed. [x] New medication prescriptions sent to your pharmacy: [facility] [ ] New medication written as a paper prescription [ ] No new medications given *Please follow up with your primary care provider in 2-3 days, call for an appointment. Let them know you were seen in the Emergency Department and that we ask that you be seen in follow up. We will electronically transmit a record of today's note if your PCP is in our system *If you do not have a primary care provider please contact the [facility] Resource line at [phone]. They will ask some questions about your medical history and help get you set up with a doctor in the community. *Return to Emergency Department if you should have any new, worsening or concerning symptoms, such as [fever greater than 101 F, shaking chills, worsening pain, persistent vomiting or other concerning symptoms]. Prescriptions: New sulfamethoxazole-trimethoprim [Bactrim DS] 800-160 mg tablet 1 tab PO Q12H Qty: 14 0RF Discontinued levofloxacin 500 mg tablet 500 mg PO DAILY Qty: 14 0RF No Action aspirin 81 mg Capsule 81 mg PO DAILY Qty: 0 Rx Instructions: takes at night tadalafil 5 mg tablet 5 mg PO DAILY Patient Comments: TAKE ONE TABLET BY MOUTH ONE TIME DAILY Rx Instructions: takes at night multivitamin Tablet 1 tab PO DAILY Rx Instructions: takes at night lovastatin 40 mg Tablet 40 mg PO QPM levothyroxine 50 mcg Tablet 50 mcg PO DAILY Rx Instructions: takes at night time ascorbate calcium (vitamin C) 500 mg Capsule 1,000 mg PO DAILY cholecalciferol (vitamin D3) 50 mcg (2,000 unit) Tablet 50 mcg PO DAILY tamsulosin 0.4 mg capsule 0.8 mg PO BID Referrals: Mayda Rodriguez PA-C [Primary Care Provider] - Stand Alone Forms: Patient Portal/API ED Sign-out <Eros Hatch MD - Last Filed: 12/01/22 08:14> Cosign ED Attending Cosignature Attestation: I was immediately available in the department for consultation. ?This documentation has been reviewed and I agree with assessment and plan. Supervised by Eros Hatch MD
== END 2022-11-25 15:12 | disposition home or self-care (01) ==
PROVIDERS: Emergency Provider Physician Assistant; PCP Physician Assistant
DX: N20.0 Calculus of kidney (principal); M76.9 Unspecified enthesopathy, lower limb, excluding foot; Z76.0 Encounter for issue of repeat prescription
CPT/HCPCS: 99281

== ENCOUNTER → 2022-12-02 09:57 | Outpatient (CLI) | payer MEDICARE, SELFPAY ==
[2022-09-03 11:11] VITALS: BMI 24.6
--- NOTE | 2022-12-02 09:58 | DI.RAD.S_ITS ---
PROCEDURE: XR KUB INDICATIONS: Follow-up kidney stone TECHNIQUE: One view of the abdomen acquired. COMPARISON: [facility], CR, XR KUB, 11/04/2022, 10:09. FINDINGS: Surgical changes and devices: Bilateral ureteral stents Bowel: Bowel gas pattern is normal. Soft tissues: Suggestion of possible residual gravel in the right renal pelvis/proximal ureter. Interval decrease in the amount of overall right-sided stone burden.Visualized solid organ contours appear normal in size. Bones: No suspicious bony lesions. IMPRESSION: Probable residual gravel, right renal pelvis/proximal ureter . Dictated by: Kory Pitts M.D. on 12/02/2022 at 15:18 Approved by: Kory Pitts M.D. on 12/02/2022 at 15:20
== END ==
PROVIDERS: PCP Physician Assistant; Referring Provider Urology; Visit Provider Urology
DX: N20.0 Calculus of kidney (principal)
CPT/HCPCS: 74018

== ENCOUNTER 2022-12-02 10:19 | Emergency (ER) | payer MEDICARE, SELFPAY ==
[2022-09-03 11:11] VITALS: BMI 24.6
[2022-12-02 10:24] VITALS: BP 156/66; PULSE 65; RESP 16; TEMP 36.4; O2SAT 99; BMI 26.6
--- NOTE | 2022-12-02 10:30 | DI.US.S_ITS ---
PROCEDURE: US PERIP VENOUS LOW EXTREM BI INDICATIONS: CALF PAIN RIGHT > LEFT TECHNIQUE: Real-time imaging, as well as color and pulse Doppler interrogation, were performed of the deep veins of both legs from the inguinal ligament to the popliteal fossa, with documentation of the visualized calf veins. COMPARISON: US, [facility] VENOUS LOW EXTREM BI, 06/26/2022, 23:44. FINDINGS: Right: The common femoral, femoral, popliteal, and the visualized calf veins are normally compressible, and free of intraluminal thrombus. Color and pulse Doppler demonstrate normal phasic intravascular flow. There is normal augmentation response to distal compression maneuver. Left: The common femoral, femoral, popliteal, and the visualized calf veins are normally compressible, and free of intraluminal thrombus. Color and pulse Doppler demonstrate normal phasic intravascular flow. There is normal augmentation response to distal compression maneuver. IMPRESSION: No findings of deep venous thrombosis in either lower extremity. Dictated by: Jenn Coon M.D. on 12/02/2022 at 11:09 Approved by: Jenn Coon M.D. on 12/02/2022 at 11:10
[2022-12-02 11:25] VITALS: PULSE 72
[2022-12-02 11:45] VITALS: BP 140/78; PULSE 72; RESP 15; O2SAT 99
--- NOTE | 2022-12-02 11:45 | ED.EXTPRO ---
HPI - Extremity Problem General Chief complaint: Extremity Problem,Nontraumatic Stated complaint: Lower bilateral leg pain Time Seen by Provider: 12/02/22 10:24 Source: patient Mode of arrival: Ambulatory History of Present Illness HPI Narrative: 82-year-old male presents from his urologist's office for bilateral leg pain. Patient states that he was previously on an antibiotic when his symptoms started, his leg pain was attributed to an antibiotic side effect and he was referred to his urologist for bilateral kidney stones. He has been compliant with his antibiotic change, but does not remember what the antibiotic is. He states he was sent here from his urologist's office to make sure that the leg pain he is experiencing is not from a blood clot. Denies history of blood clots, denies blood thinners. Related Data Home Medications Medication Instructions Recorded Confirmed aspirin 81 mg capsule 81 mg PO DAILY ##0 10/23/06 11/24/22 ascorbate calcium (vitamin C) 500 1,000 mg PO DAILY 06/27/22 11/24/22 mg capsule cholecalciferol (vitamin D3) 50 50 mcg PO DAILY 06/27/22 11/24/22 mcg (2,000 unit) tablet levothyroxine 50 mcg tablet 50 mcg PO DAILY 06/27/22 11/24/22 lovastatin 40 mg tablet 40 mg PO QPM 06/27/22 11/24/22 multivitamin 1 tab PO DAILY 06/27/22 11/24/22 tadalafil 5 mg tablet 5 mg PO DAILY 06/27/22 11/24/22 tamsulosin 0.4 mg capsule 0.8 mg PO BID 07/09/22 11/24/22 Previous Rx's Medication Instructions Recorded sulfamethoxazole 800 1 tab PO Q12H #14 tabs 11/25/22 mg-trimethoprim 160 mg tablet (Bactrim DS) Allergies Allergy/AdvReac Type Severity Reaction Status Date / Time Penicillins Allergy Intermediate Rash-childhood Verified 11/24/22 06:34 reaction Review of Systems Review of Systems Narrative: Negative except as noted above Patient History Medical History S/P extracorporeal shock wave therapy (09/15/22) Retained ureteral stent History of hydronephrosis History of renal insufficiency History of renal failure Hypothyroidism Urinary retention Benign prostatic hyperplasia Lower urinary tract symptoms Elevated serum creatinine Acute renal insufficiency Bilateral hydronephrosis Bilateral renal stones Surgical History Hx of surgical procedure (08/04/22) History of prostate surgery History of urologic surgery (06/27/22) Family History Mother Hypertension Stroke Social History household members: spouse Smoking Status: Former smoker alcohol intake: current Smoking Status: Former smoker alcohol intake frequency: holidays/special occasions only Substance Use Type: does not use Exam Initial Vital Signs Initial Vital Signs: Vital Signs Temperature 97.6 F 12/02/22 10:24 Pulse Rate 65 12/02/22 10:24 Respiratory Rate 16 12/02/22 10:24 Blood Pressure 156/66 H 12/02/22 10:24 Pulse Oximetry 99 12/02/22 10:24 Oxygen Delivery Method Room Air 12/02/22 10:24 Const: Awake, alert, no acute distress, nontoxic appearing Eyes: PERRL, EOMI, conjunctiva normal ENT: Atraumatic, dentition normal, mucous membranes moist Cardiac: regular rate, regular rhythm RESP: unlabored, clear bilaterally, no wheezing GI: Atraumatic, soft, nontender, nondistended, no rebound, no guarding MSK: No deformity, bruising over bilateral ankles, full range of motion, pulses equal Skin: Warm, Dry, intact, bruising noted over ankles bilaterally Neuro: AO x3, CN II-XII grossly intact, moves all extremities Psych: affect normal, mood normal, not suicidal, not homicidal Course Course Course Narrative: Ongoing bilateral calf pain. Record review shows that patient was previously taking Levaquin for infection prevention was taken off of it and switched to a different antibiotic. He has old bruising noted at the base of both of his legs. Ultrasound negative for DVT. uncertain etiology of pain/bruising, however it is possible that this is from the levaquin causing achilles tendinopathy. Patient informed of his ultrasound results, recommended he continue to see his urologist as previously scheduled for his stones, and recommended follow up with primary care physician if he continues to have this pain. Recommended Tylenol and Motrin as needed for symptoms. Orders Ordered: ED Orders 12/02/22 10:30 US periph venous low extrem bi Stat Vital Signs Vital signs: Vital Signs - 8 hr 12/02/22 10:24 Temperature 97.6 F Pulse Rate 65 Respiratory Rate 16 Blood Pressure 156/66 H Pulse Oximetry 99 Oxygen Delivery Method Room Air Discharge Plan Departure Patient Disposition: Home Clinical Impression: Bilateral calf pain Instructions: DI for Calf Muscle Strain Prescriptions: No Action aspirin 81 mg Capsule 81 mg PO DAILY Qty: 0 Rx Instructions: takes at night tadalafil 5 mg tablet 5 mg PO DAILY Patient Comments: TAKE ONE TABLET BY MOUTH ONE TIME DAILY Rx Instructions: takes at night multivitamin Tablet 1 tab PO DAILY Rx Instructions: takes at night lovastatin 40 mg Tablet 40 mg PO QPM levothyroxine 50 mcg Tablet 50 mcg PO DAILY Rx Instructions: takes at night time ascorbate calcium (vitamin C) 500 mg Capsule 1,000 mg PO DAILY cholecalciferol (vitamin D3) 50 mcg (2,000 unit) Tablet 50 mcg PO DAILY tamsulosin 0.4 mg capsule 0.8 mg PO BID sulfamethoxazole-trimethoprim [Bactrim DS] 800-160 mg tablet 1 tab PO Q12H Qty: 14 0RF Referrals: Mayda Rodriguez PA-C [Primary Care Provider] - Stand Alone Forms: Patient Portal/API
== END 2022-12-02 12:03 | disposition home or self-care (01) ==
PROVIDERS: Emergency Provider Emergency Medicine; PCP Physician Assistant
DX: M79.662 Pain in left lower leg (principal); M79.661 Pain in right lower leg; Z79.899 Other long term (current) drug therapy; N20.0 Calculus of kidney
CPT/HCPCS: 74018; 93970; 99283

== ENCOUNTER → 2022-12-04 11:35 | Outpatient (CLI) | payer MEDICARE, SELFPAY ==
[2022-09-03 11:11] VITALS: BMI 24.6
[2022-12-12 15:10] LABS: Ca oxalate monohydr 100 % (.); Size 4x3 mm (.)
== END ==
PROVIDERS: PCP Physician Assistant; Visit Provider Urology
DX: N20.0 Calculus of kidney (principal); N40.1 Benign prostatic hyperplasia with lower urinary tract symptoms; R39.12 Poor urinary stream; R33.9 Retention of urine, unspecified; R39.9 Unspecified symptoms and signs involving the genitourinary system; Z96.0 Presence of urogenital implants; Z98.890 Other specified postprocedural states; Z87.448 Personal history of other diseases of urinary system
CPT/HCPCS: 81002; 82365; 87086

== ENCOUNTER → 2022-12-16 08:24 | Outpatient (CLI) | payer MEDICARE, SELFPAY ==
[2022-09-03 11:11] VITALS: BMI 24.6
--- NOTE | 2022-12-16 08:25 | DI.RAD.S_ITS ---
PROCEDURE: XR KUB INDICATIONS: Follow-up lithotripsy right side TECHNIQUE: One view of the abdomen acquired. COMPARISON: [facility], CT, CT KIDNEY URETER BLADDER (KUB), 07/11/2022, 14:23. [facility], CT, CT KIDNEY URETER BLADDER (KUB), 06/27/2022, 0:44. [facility], CT, CT ABDOMEN PELVIS WO CON, 08/26/2022, 13:35. [facility], CR, XR KUB, 11/04/2022, 10:09. [facility], CR, XR KUB, 12/02/2022, 10:00. FINDINGS: Surgical changes and devices: Bilateral ureteral stent in expected position. Bowel: Bowel gas pattern is normal. Soft tissues: Suspect stones in the right inferior pole and in the proximal left ureter. Visualized solid organ contours appear normal in size. Bones: No suspicious bony lesions. IMPRESSION: 1. Ureteral stents are present bilaterally, demonstrating expected position. 2. Suspect residual stones within the inferior pole of the right kidney and in the proximal left ureter. Dictated by: Alexandra Moreno M.D. on 12/16/2022 at 12:37 Approved by: Alexandra Moreno M.D. on 12/16/2022 at 12:47
== END ==
PROVIDERS: PCP Physician Assistant; Referring Provider Urology; Visit Provider Urology
DX: N20.0 Calculus of kidney (principal); Z87.442 Personal history of urinary calculi; Z96.0 Presence of urogenital implants
CPT/HCPCS: 74018

== ENCOUNTER → 2022-12-17 08:23 | Outpatient (CLI) | payer MEDICARE, SELFPAY ==
[2022-09-03 11:11] VITALS: BMI 24.6
[2022-12-28 06:41] LABS: Ca oxalate dihydrate 20 % (.); Ca oxalate monohydr 80 % (.)
== END ==
PROVIDERS: PCP Physician Assistant; Visit Provider Urology
DX: N20.0 Calculus of kidney (principal); N40.1 Benign prostatic hyperplasia with lower urinary tract symptoms; R39.12 Poor urinary stream; R39.9 Unspecified symptoms and signs involving the genitourinary system; Z96.0 Presence of urogenital implants; Z87.448 Personal history of other diseases of urinary system; Z98.890 Other specified postprocedural states
CPT/HCPCS: 81002; 82365; 87086; 99214

== ENCOUNTER → 2022-12-24 08:23 | Outpatient (CLI) | payer MEDICARE, SELFPAY ==
[2022-09-03 11:11] VITALS: BMI 24.6
--- NOTE | 2022-12-24 08:26 | DI.RAD.S_ITS ---
PROCEDURE: XR KUB INDICATIONS: Follow-up kidney stone TECHNIQUE: One view of the abdomen acquired. COMPARISON: [facility], CT, CT ABDOMEN PELVIS WO CON, 08/26/2022, 13:35. [facility], CR, XR KUB, 12/16/2022, 8:27. [facility], CR, XR KUB, 12/02/2022, 10:00. FINDINGS: Surgical changes and devices: Bilateral ureteral stents are again seen in unchanged positions. Bowel: Bowel gas pattern is normal. Moderate stool in the cecum. Soft tissues: Suspected left proximal ureteral calculus again seen without significant change in positioning. Small calculi are again seen projecting over the inferior pole of the right kidney. Visualized solid organ contours appear normal in size. Bones: No suspicious bony lesions. Age-appropriate degenerative changes are present. IMPRESSION: Stable bilateral ureteral stents. Suspected left proximal ureteral calculus and right inferior pole renal calculi do not appear significantly changed when compared to the radiographs from 12/16/2022. Approved by: Sloan Becerra M.D. on 12/24/2022 at 14:58
== END ==
PROVIDERS: PCP Physician Assistant; Referring Provider Urology; Visit Provider Urology
DX: N20.0 Calculus of kidney (principal); Z87.442 Personal history of urinary calculi; Z96.0 Presence of urogenital implants
CPT/HCPCS: 74018

== ENCOUNTER 2022-12-29 06:17 | Day surgery (SDC) | payer MEDICARE, SELFPAY ==
[2022-09-03 11:11] VITALS: BMI 24.6
[2022-12-21 15:04] VITALS: BMI 26.6
[2022-12-29] VITALS (7 sets, daily range): BP systolic 117–129; BP diastolic 68–81; PULSE 54–86; RESP 12–17; TEMP 36.2–36.7; O2SAT 94–97; BMI 26.6
[2022-12-29] MEDS: LACTATED RINGERS 1,000 ML 21 ML IV (06:59)
--- NOTE | 2022-12-29 07:32 | PM.PREOP ---
Pre-operative Note COVID-19 COVID-19 status: Not tested Interval Note History & Physical reviewed/Exam performed by Physician: Yes Changes to H&P: No
[2022-12-29] MEDS: CEFAZOLIN 2 GM/100 ML PREMIX 100 ML IV (07:43)
--- NOTE | 2022-12-29 07:50 | SUR.OPER ---
Supine on ESWL table, head on pillow, arms padded and tucked at sides, legs uncrossed, tape over blanket over lower legs .
--- NOTE | 2022-12-29 08:32 | PM.OP.1 ---
Procedure & Clinicians Procedure: Right extracorporeal shockwave lithotripsy Same procedure as scheduled: Yes Indications: This 82-year-old male started with a bilateral stone burden. Ended up having bilateral stents placed.. He had a very large stone on the right and comes for another sequential treatment having significantly reduce the burden but having a few larger fragments left. This is his 3rd in the series. Surgeon: Eros Koo Click Yes if Unassisted: Yes Anesthesia Type: General Operative Notes Findings: A clot or stone fragments his noted around the stent. There is 1 distal larger fragment and no other stones were seen on the right side there is a stone along the left stent which appears stable. The stones received shockwave in the following fashion. One thousand five hundred shocks were delivered to the ?cloud of stones at level 7 appearing to fragment them completely. Another 1000 shocks were delivered to the distal stone which appeared to fragment it also this was also at level 7. There was no other abnormality noted the stents were in good position. Closure Type: not applicable Specimen(s): none sent Estimated Blood Loss (mL): 0 Procedure in detail: Procedure in detail: After informed consent was obtained, the patient was identified and brought to the operating room where he was placed in a supine position on the Lithotripter. There he had anesthesia induced and maintained. Ensuring an adequate level of anesthesia and after time-out and administration of antibiotics shockwave were delivered after targeting the cloudy stones with the imaging system. Shockwave was delivered at level 7 with periodic reimaging and re localization to ensure maximal energy delivered to the stone. At 1500 shock waves the shockwave head was rotated out and fluoroscopy performed the cloud of stones appear well fragmented and attention was then turned to the stone along the stent which was distal to the others at the UPJ or proximal ureter. Shockwave delivered at level 7 with again periodic reimaging and ureteral localization. At 2500 shockwave the shockwave head was once again rotated out and all stones appeared to be fragmented. At this point the patient was awakened having tolerated the procedure well to be transferred to the postanesthesia care unit for recovery. There were no complications Complications: none Post-operative Condition: stable Disposition: PACU Plan for aftercare: Patient is to strain his urine follow up in my office in approximately 10-14 days with a KUB.
== END 2022-12-29 08:55 | disposition home or self-care (01) ==
PROVIDERS: PCP Physician Assistant; Referring Provider Urology; Visit Provider Urology
PROC: (CPT 50590; principal; 2022-12-29 07:45)
DX: N20.0 Calculus of kidney (principal); Z96.0 Presence of urogenital implants; N40.0 Benign prostatic hyperplasia without lower urinary tract symptoms; Z87.448 Personal history of other diseases of urinary system; Z98.890 Other specified postprocedural states
CPT/HCPCS: 50590; 82962; J0690; J1100; J2405; J2704; J3010

== ENCOUNTER → 2023-01-08 08:46 | Outpatient (CLI) | payer MEDICARE, SELFPAY ==
[2023-01-04 10:14] VITALS: BMI 24.6
--- NOTE | 2023-01-08 08:46 | DI.RAD.S_ITS ---
PROCEDURE: XR KUB INDICATIONS: kidney stones TECHNIQUE: One view of the abdomen acquired. COMPARISON: [facility], CR, XR KUB, 12/24/2022, 8:39. FINDINGS: Surgical changes and devices: Bilateral double-J ureteral stents are in stable position. Bowel: Bowel gas pattern is normal. Soft tissues: No suspicious abdominal calcifications. Query nephroliths in the right inferior pole and proximal left ureter, as before. Visualized solid organ contours appear normal in size. Bones: No suspicious bony lesions. IMPRESSION: 1. Bilateral double-J ureteral stents are in stable position. 2. Query nephroliths in the right inferior pole and proximal left ureter, as before. Dictated by: Sandra Flores M.D. on 01/08/2023 at 13:57 Approved by: Sandra Flores M.D. on 01/08/2023 at 14:02
== END ==
PROVIDERS: PCP Physician Assistant; Referring Provider Urology; Visit Provider Urology
DX: N20.0 Calculus of kidney (principal); Z96.0 Presence of urogenital implants
CPT/HCPCS: 74018

== ENCOUNTER → 2023-01-12 13:01 | Outpatient (CLI) | payer MEDICARE, SELFPAY ==
[2023-01-04 10:14] VITALS: BMI 24.6
[2023-01-22 14:08] LABS: Ca oxalate dihydrate 10 % (.); Ca oxalate monohydr 90 % (.)
== END ==
PROVIDERS: PCP Physician Assistant; Visit Provider Urology
DX: N20.0 Calculus of kidney (principal); R39.9 Unspecified symptoms and signs involving the genitourinary system
CPT/HCPCS: 81002; 82365; 87077; 87086; 87186

== ENCOUNTER → 2023-01-20 07:43 | Outpatient (CLI) | payer MEDICARE, SELFPAY ==
[2023-01-04 10:14] VITALS: BMI 24.6
--- NOTE | 2023-01-20 07:45 | DI.RAD.S_ITS ---
PROCEDURE: XR KUB INDICATIONS: Follow-up lithotripsy TECHNIQUE: One view of the abdomen acquired. COMPARISON: [facility], CT, CT ABDOMEN PELVIS WO CON, 08/26/2022, 13:35. [facility], CR, XR KUB, 01/08/2023, 8:47. FINDINGS: Surgical changes and devices: Bilateral double-J ureteral stents project in the expected location. Bowel: Bowel gas pattern is normal. Soft tissues: Questionable calcific density near the proximal right ureter, unchanged. No suspicious abdominal calcifications. Visualized solid organ contours appear normal in size. Bones: No suspicious bony lesions. IMPRESSION: Bilateral ureteral stents are unchanged. Questionable calcific density near the right proximal ureter. Consider CT KUB for further evaluation. Dictated by: Agus Hodge M.D. on 01/20/2023 at 9:15 Approved by: Agus Hodge M.D. on 01/20/2023 at 9:20
== END ==
PROVIDERS: PCP Physician Assistant; Referring Provider Urology; Visit Provider Urology
DX: N20.0 Calculus of kidney (principal); Z87.442 Personal history of urinary calculi; Z96.0 Presence of urogenital implants
CPT/HCPCS: 74018

== ENCOUNTER → 2023-01-21 15:00 | Outpatient (CLI) | payer MEDICARE, SELFPAY ==
[2023-01-04 10:14] VITALS: BMI 24.6
[2023-01-28 12:36] LABS: Ca oxalate dihydrate 10 % (.); Ca oxalate monohydr 90 % (.); Size 5x2 mm (.)
== END ==
PROVIDERS: PCP Physician Assistant; Visit Provider Urology
DX: N30.01 Acute cystitis with hematuria (principal); N20.0 Calculus of kidney; Z96.0 Presence of urogenital implants; Z87.448 Personal history of other diseases of urinary system; Z98.890 Other specified postprocedural states
CPT/HCPCS: 81002; 82365; 99214

== ENCOUNTER → 2023-01-27 08:51 | Outpatient (CLI) | payer MEDICARE, SELFPAY ==
[2023-01-04 10:14] VITALS: BMI 24.6
--- NOTE | 2023-01-27 08:58 | DI.CT.S_ITS ---
PROCEDURE: CT ABDOMEN PELVIS WO CON INDICATIONS: Evaluate stone burden TECHNIQUE: Axial sections were acquired from the lung bases to the pubic symphysis. Coronal and sagittal reformats were performed. For radiation dose reduction, the following was used: automated exposure control, adjustment of mA and/or kV according to patient size. COMPARISON: [facility], CT, CT ABDOMEN PELVIS WO CON, 08/26/2022, 13:35. FINDINGS: Image quality: Excellent. Lung bases: Calcified granuloma. Heart: Cardiomegaly with moderate coronary artery calcifications. URINARY: Right Kidney: Interval lithotripsy. Right-sided nephroureteral stent terminates in the extrarenal pelvis. 3 mm stone in the extrarenal pelvis (series 2, image 54). Peripelvic fat stranding present. Right Ureter: No hydroureter. Left Kidney: No stones or hydronephrosis. Nephroureteral stent in place. Left Ureter: No hydroureter. Bladder: Normal wall thickness. No stones. ABDOMEN: Liver: No contour-deforming solid mass. Gallbladder: No radiopaque gallstones or wall thickening. Biliary ducts: No biliary dilation. Pancreas: No ductal dilation. Spleen: Size is within normal limits. Adrenal Glands: No adrenal nodules. Stomach and Bowel: Normal colonic caliber, without significant wall thickening. Colonic diverticulosis without evidence of diverticulitis. Fecal debris within the small bowel. Colonic interposition between the liver and hemidiaphragm. Peritoneum: No abnormal intraperitoneal fluid. No free air. Ventral Wall: No hernia. Abdominal Nodes: No enlarged retroperitoneal or mesenteric lymph nodes. Vessels: Ectatic infrarenal aorta, stable from prior. PELVIS: Pelvic Organs: Unremarkable. Pelvic Nodes: Unremarkable. Miscellaneous: Small inguinal hernias containing fat. Bones: Unremarkable. IMPRESSION: Interval lithotripsy. Residual 3 mm stone in the right-sided extrarenal pelvis. Bilateral nephroureteral stents in place. Fecal debris within the small-bowel, usually indicating small intestinal bacterial overgrowth versus slow transit. Colonic diverticulosis without evidence of diverticulitis. Ectatic infrarenal aorta. Five year follow-up with ultrasound is recommended. Dictated by: Raman Ojeda M.D. on 01/27/2023 at 10:29 Approved by: Raman Ojeda M.D. on 01/27/2023 at 10:33
== END ==
PROVIDERS: PCP Physician Assistant; Referring Provider Urology; Visit Provider Urology
DX: N20.0 Calculus of kidney (principal); K57.90 Diverticulosis of intestine, part unspecified, without perforation or abscess without bleeding; I77.811 Abdominal aortic ectasia; Z96.0 Presence of urogenital implants
CPT/HCPCS: 74176

== ENCOUNTER 2023-02-09 08:45 | Day surgery (SDC) | payer MEDICARE, SELFPAY ==
[2023-01-04 10:14] VITALS: BMI 24.6
[2023-02-02 12:59] VITALS: BMI 27.3
[2023-02-09 09:21] VITALS: BMI 27.3
[2023-02-09 09:27] VITALS: BP 135/77; PULSE 61; RESP 18; TEMP 36.4; O2SAT 97
[2023-02-09] MEDS: LACTATED RINGERS 1,000 ML 42 ML IV (09:31)
[2023-02-09] MEDS: ACETAMINOPHEN 325 MG TABLET 975 MG PO (09:34)
--- NOTE | 2023-02-09 09:39 | P.OP.PRE_ITS ---
Pre-operative Note COVID-19 COVID-19 status: Not tested Interval Note History & Physical reviewed/Exam performed by Physician: Yes Changes to H&P: Yes H&P completed within 30 days and has changed as indicated here:: CT scan revie wed and H& P updated will proceed with extracorporeal shockwave lithotripsy left side
--- NOTE | 2023-02-09 10:02 | SUR.OPER ---
Supine on ESWL table, head on pillow, arms padded and tucked at sides, legs uncrossed.
--- NOTE | 2023-02-09 10:33 | P.OP_ITS ---
Procedure & Clinicians Procedure: Left extracorporeal shockwave lithotripsy Same procedure as scheduled: Yes Indications: This 82-year-old male who originally presented with bilateral stones has had his right-sided stone which was large treated and now presents for treatment of his left sided 7-8 mm stone. Patient has stents in bilaterally. The treatment will be by left extracorporeal shockwave lithotripsy. Surgeon: Eros Koo Click Yes if Unassisted: Yes Anesthesia Type: General Operative Notes Findings: The stone is noted to be in the proximal ureter the stent is in good position the patient had no other significant abnormality noted. The stone received 2000 shock waves at level 7 and appeared to fragment. Closure Type: not applicable Specimen(s): none sent Prosthetic devices, grafts, tissues, transplants, or devices: None new added Procedure in detail: Procedure in detail: After informed consent was obtained, the patient was identified and brought to the operating room where he was placed in a supine position on the Lithotripter. Once there he had anesthesia induced and maintained. Ensuring an adequate level of anesthesia, after time-out and ad ministration of antibiotics the patient had the stone targeted via the imaging system and shockwave was delivered at level 7 with periodic reimaging and re localization to ensure maximal energy delivery to the stone. A 2000 shockwave the shockwave head was rotated out the stone appeared to be fragmented and at that point the patient was awakened having tolerated the procedure well and transferred to the postanesthesia care unit there were no complications. Post-operative Condition: stable Disposition: PACU Plan for aftercare: Patient to follow up my office in approximately 10-14 days with a KUB patient is to strain his urine and save any fragments and bring them to follow-up.
[2023-02-09 10:36] VITALS: BP 107/74; PULSE 78; RESP 12; TEMP 36.1; O2SAT 92
[2023-02-09 10:38] VITALS: BP 98/53; PULSE 74; RESP 16; O2SAT 93
[2023-02-09 10:43] VITALS: BP 95/60; PULSE 76; RESP 14; O2SAT 96
[2023-02-09 10:49] VITALS: BP 102/72; PULSE 68; RESP 16; TEMP 36.2; O2SAT 96
== END 2023-02-09 11:03 | disposition home or self-care (01) ==
PROVIDERS: PCP Physician Assistant; Referring Provider Urology; Visit Provider Urology
PROC: (CPT 50590; principal; 2023-02-09 10:30)
DX: N20.0 Calculus of kidney (principal)
CPT/HCPCS: 50590; 82962; J1100; J2405; J2704; J3010; J3490

== ENCOUNTER → 2023-02-19 10:12 | Outpatient (CLI) | payer MEDICARE, SELFPAY ==
[2023-01-04 10:14] VITALS: BMI 24.6
--- NOTE | 2023-02-19 10:23 | DI.RAD.S_ITS ---
PROCEDURE: XR KUB INDICATIONS: Post op TECHNIQUE: One view of the abdomen acquired. COMPARISON: [facility], CR, XR KUB, 01/20/2023, 7:48. FINDINGS: Surgical changes and devices: Bilateral ureterovesicular stents. Bowel: Bowel gas pattern is normal. Soft tissues: Previous possible calcification at the right proximal ureter is unchanged. Visualized solid organ contours appear normal in size. Bones: No suspicious bony lesions. IMPRESSION: Stable interval exam with questionable calcification at the right proximal ureter. Dictated by: Jenn Coon M.D. on 02/19/2023 at 17:02 Approved by: Jenn Coon M.D. on 02/19/2023 at 17:03
== END ==
LOC: RAD 10:23
PROVIDERS: PCP Physician Assistant; Referring Provider Urology; Visit Provider Urology
DX: N20.0 Calculus of kidney (principal)
CPT/HCPCS: 74018

== ENCOUNTER → 2023-02-23 13:58 | Outpatient (CLI) | payer MEDICARE, SELFPAY ==
[2023-01-04 10:14] VITALS: BMI 24.6
[2023-03-05 18:09] LABS: Ca oxalate dihydrate 60 % (.); Ca oxalate monohydr 40 % (.)
== END ==
PROVIDERS: PCP Physician Assistant; Visit Provider Urology
DX: N20.0 Calculus of kidney (principal); R82.81 Pyuria; R31.29 Other microscopic hematuria; Z96.0 Presence of urogenital implants
CPT/HCPCS: 81002; 82365; 87077; 87086; 87186; 99213

== ENCOUNTER → 2023-03-06 00:29 | Outpatient (ROUT) | payer MEDICARE, SELFPAY ==
[2023-01-04 10:14] VITALS: BMI 24.6
[2023-03-06 00:36] LABS: Appearance Urine UA TURBID; Bilirubin Urine UA NEGATIVE (NEGATIVE); Color Urine UA YELLOW; Glucose Urine UA NEGATIVE (Negative); Ketones Urine UA NEGATIVE (NEGATIVE); Leukocyte Esterase Urine UA 2+ (NEGATIVE); Nitrite Urine UA NEGATIVE (Negative); Occult Blood Urine UA 3+ (Negative); Protein Urine UA 2+ (Negative); Specific Gravity Urine UA 1.025 (1.000-1.035)
[2023-03-06 00:50] LABS: Urine Volume 10mL (spun)
[2023-03-06 00:51] LABS: Bacteria Urine Few (2-10); RBC Urine 30-100/HPF (0-5/HPF); Renal Epithelial Cells Urine 0-1/HPF (0-1/HPF); Squamous Epithelial Cell Urine None Seen (0-5/HPF); WBC Urine 10-30/HPF (0-5/HPF)
[2023-03-06 00:52] LABS: Amorphous Sediment Urine 1+; Culture Indicated Urine Specimen Cultured; Mucus Urine 1+ (Negative)
== END ==
PROVIDERS: PCP Physician Assistant; Visit Provider Urology
DX: R39.9 Unspecified symptoms and signs involving the genitourinary system (principal)
CPT/HCPCS: 81001; 87086

== ENCOUNTER → 2023-03-12 09:07 | Outpatient (CLI) | payer MEDICARE, SELFPAY ==
[2023-01-04 10:14] VITALS: BMI 24.6
== END ==
PROVIDERS: PCP Physician Assistant; Visit Provider Urology
DX: N20.0 Calculus of kidney (principal); R39.9 Unspecified symptoms and signs involving the genitourinary system; Z87.448 Personal history of other diseases of urinary system; Z98.890 Other specified postprocedural states
CPT/HCPCS: 81002; 87086; 99213

== ENCOUNTER → 2023-03-25 08:22 | Outpatient (CLI) | payer MEDICARE, SELFPAY ==
[2023-01-04 10:14] VITALS: BMI 24.6
[2023-03-25 10:11] LABS: Uric Acid 5.7 mg/dL (3.5-8.5)
[2023-03-28 01:09] LABS: Parathyroid Hormone, Intact 29 pg/mL (15-65)
== END ==
PROVIDERS: PCP Physician Assistant; Referring Provider Urology; Visit Provider Urology
DX: N20.0 Calculus of kidney (principal); N40.1 Benign prostatic hyperplasia with lower urinary tract symptoms; R39.12 Poor urinary stream; Z87.448 Personal history of other diseases of urinary system; Z98.890 Other specified postprocedural states
CPT/HCPCS: 36415; 81002; 82310; 83970; 84100; 84550; 99213

== ENCOUNTER → 2023-12-14 09:30 | Outpatient (CLI) | payer MEDICARE, SELFPAY ==
[2023-01-04 10:14] VITALS: BMI 24.6
--- NOTE | 2023-12-14 09:31 | DI.RAD.S_ITS ---
PROCEDURE: XR KUB INDICATIONS: Calcium oxalate stones TECHNIQUE: One view of the abdomen acquired. COMPARISON: [facility], CR, XR KUB, 02/19/2023, 10:25. FINDINGS: Stool gas pattern: Normal-no evidence of ileus or obstruction. No free intraperitoneal or extraperitoneal air. No gross evidence of ascites Soft tissues: There are 2 small calcifications overlying the proximal right ureter both less than 2 millimeters. They may represent stones. Organs: No gross evidence for organomegaly. IMPRESSION: Two tiny calcifications overlying the proximal right ureter which may represent stones ureter Dictated by: Joseph Dickens M.D. on 12/15/2023 at 10:07 Approved by: Joseph Dickens M.D. on 12/15/2023 at 10:09
== END ==
PROVIDERS: PCP Physician Assistant; Referring Provider Urology; Visit Provider Urology
DX: N20.0 Calculus of kidney (principal); Z87.442 Personal history of urinary calculi
CPT/HCPCS: 74018

== ENCOUNTER → 2024-03-02 11:18 | Outpatient (CLI) | payer MEDICARE, SELFPAY ==
[2023-01-04 10:14] VITALS: BMI 24.6
--- NOTE | 2024-03-02 11:18 | DI.US.S_ITS ---
PROCEDURE: US RENAL COMPLETE INDICATIONS: stage 3b chronic kidney disease TECHNIQUE: Real-time scanning was performed of the kidneys and bladder, with image documentation. COMPARISON: [facility], , US RENAL COMPLETE, 06/26/2022, 23:52. FINDINGS: Kidneys: Kidneys are normal in size. Right kidney measures 11.9 cm long; left kidney measures 12.0 cm long. Right renal cortical thickness is 1.2 cm; left renal cortical thickness is 1.0 cm. Increased cortical echotexture . Moderate right-sided hydronephrosis. Obstructing stone in the proximal right ureter measuring 1 centimeter period Bladder: Pre-void bladder volume is 388 mL. Post-void residual is 118 mL. Pre-void images demonstrate no intraluminal masses or stones. On pre-void images, the right ureteral jets are noted with color Doppler interrogation. (Of note, ureteral jets may not be detectable in up to 25% of cases due to insufficient differences in specific gravity between ureteral and bladder urine). Miscellaneous: No free pelvic fluid. Prostate is enlarged, measuring 3.1 x 4.5 x 4.4 centimeter. IMPRESSION: Obstructing 1.1 centimeter stone in the proximal right ureter, resulting in moderate hydronephrosis. Accurate primary report sent to ordering provider by the technologist at the time of exam. Increased renal cortical echogenicity, consistent with chronic parenchymal disease. Urinary retention, with a postvoid residual of 118 milliliter. Dictated by: Raman Ojeda M.D. on 03/02/2024 at 13:47 Approved by: Raman Ojeda M.D. on 03/02/2024 at 13:50
== END ==
PROVIDERS: PCP Family Medicine; Referring Provider Family Medicine; Visit Provider Family Medicine
DX: N18.32 Chronic kidney disease, stage 3b (principal); N13.2 Hydronephrosis with renal and ureteral calculous obstruction; R33.9 Retention of urine, unspecified
CPT/HCPCS: 76770

== ENCOUNTER → 2024-03-09 09:30 | Outpatient (CLI) | payer MEDICARE, SELFPAY ==
[2023-01-04 10:14] VITALS: BMI 24.6
--- NOTE | 2024-03-09 09:31 | DI.CT.S_ITS ---
PROCEDURE: CT ABDOMEN PELVIS WO CON INDICATIONS: Rule out recurrent stones TECHNIQUE: Axial sections were acquired from the lung bases to the pubic symphysis. Coronal and sagittal reformats were performed. For radiation dose reduction, the following was used: automated exposure control, adjustment of mA and/or kV according to patient size. COMPARISON: [facility], CT, CT ABDOMEN PELVIS WO CON, 01/27/2023, 8:57. FINDINGS: Image quality: Diagnostic. Lower Chest: Three-vessel coronary calcifications. Calcified granuloma of the right lower lobe. URINARY: Right Kidney: 4 millimeter stone in the right renal pelvis, with right-sided pelvocaliectasis. Atrophic. Right Ureter: No hydroureter. Left Kidney: A few punctate, nonobstructing left-sided nephrolithiasis. No hydronephrosis. Atrophic. Left Ureter: No hydroureter. Bladder: Normal wall thickness. No stones. ABDOMEN: Liver: No contour-deforming solid mass. Gallbladder: No radiopaque gallstones or wall thickening. Biliary ducts: No biliary dilation. Pancreas: No ductal dilation. Moderately atrophic. Spleen: Size is within normal limits. Adrenal Glands: No adrenal nodules. Stomach and Bowel: Normal colonic caliber, without significant wall thickening. Colonic diverticulosis without evidence of diverticulitis. Colonic interposition between the liver and hemidiaphragm. Peritoneum: No abnormal intraperitoneal fluid. No free air. Ventral Wall: No hernia. Abdominal Nodes: No enlarged retroperitoneal or mesenteric lymph nodes. Vessels: Aorta and inferior vena cava are normal in size. PELVIS: Pelvic Organs: Unremarkable. Pelvic Nodes: Unremarkable. Miscellaneous: Small inguinal hernias containing fat. Bones: Degenerative disc disease of the lumbar spine. IMPRESSION: 4 millimeter stone in the right-sided extrarenal pelvis, with [id number] right-sided pelvocaliectasis. Findings may indicate and intermittently obstructive stone. Small burden of punctate, nonobstructing left-sided nephrolithiasis. Colonic interposition between the liver and hemidiaphragm, which can be symptomatic. Dictated by: Raman Ojeda M.D. on 03/09/2024 at 16:00 Approved by: Raman Ojeda M.D. on 03/09/2024 at 16:04
== END ==
PROVIDERS: PCP Family Medicine; Referring Provider Urology; Visit Provider Urology
DX: N20.0 Calculus of kidney (principal); K40.90 Unilateral inguinal hernia, without obstruction or gangrene, not specified as recurrent; K57.90 Diverticulosis of intestine, part unspecified, without perforation or abscess without bleeding; I25.10 Atherosclerotic heart disease of native coronary artery without angina pectoris; Z87.442 Personal history of urinary calculi
CPT/HCPCS: 74176

== ENCOUNTER → 2024-03-29 08:05 | Outpatient (CLI) | payer MEDICARE, SELFPAY ==
[2023-01-04 10:14] VITALS: BMI 24.6
--- NOTE | 2024-03-29 08:07 | DI.RAD.S_ITS ---
PROCEDURE: XR KUB INDICATIONS: Evaluate for recurrent calculi TECHNIQUE: One view of the abdomen acquired. COMPARISON: [facility], CR, XR KUB, 12/14/2023, 9:36. FINDINGS: Surgical changes and devices: None. Bowel: Bowel gas pattern is normal. Soft tissues: No suspicious abdominal calcifications. Visualized solid organ contours appear normal in size. Bones: No suspicious bony lesions. IMPRESSION: No acute abnormality. Dictated by: Eugene Toscano M.D. on 03/29/2024 at 21:39 Approved by: Eugene Toscano M.D. on 03/29/2024 at 21:40
== END ==
PROVIDERS: PCP Family Medicine; Referring Provider Urology; Visit Provider Urology
DX: Z87.442 Personal history of urinary calculi (principal); Z09 Encounter for follow-up examination after completed treatment for conditions other than malignant neoplasm
CPT/HCPCS: 74018

== ENCOUNTER → 2024-06-07 07:42 | Outpatient (CLI) | payer MEDICARE, SELFPAY ==
[2023-01-04 10:14] VITALS: BMI 24.6
--- NOTE | 2024-06-07 07:44 | DI.RAD.S_ITS ---
PROCEDURE: XR KUB INDICATIONS: History of calcium oxalate stones TECHNIQUE: One view of the abdomen acquired. COMPARISON: [facility], CR, XR KUB, 03/29/2024, 8:14. FINDINGS: Surgical changes and devices: Surgical clips noted over the left inguinal canal Bowel: Moderate fecal debris throughout the colon Soft tissues: Small rounded calculi project over the stephanie both renal shadows similar to the prior Bones: No suspicious bony lesions. IMPRESSION: Stable bilateral nephrolithiasis, unchanged Approved by: Umer Silva M.D. on 06/07/2024 at 17:12
[2024-06-07 10:05] LABS: BUN Creatinine Ratio 11.9 (6-22); Blood Urea Nitrogen 20 mg/dL (9-20); Carbon Dioxide 26 mmol/L (22-32); Chloride 103 mmol/L (98-107); Estimated Glomerular Filt Rate 40 mL/min (>60); Glucose 113 mg/dL (70-99); HEMOLYSIS < 15 (0-50); Sodium 138 mmol/L (137-145)
[2024-06-07 10:32] LABS: Prostate Specific Antigen Scrn 1.43 ng/mL (0.1-4.0)
== END ==
PROVIDERS: PCP Family Medicine; Referring Provider Urology; Visit Provider Urology
DX: Z12.5 Encounter for screening for malignant neoplasm of prostate (principal); N20.0 Calculus of kidney; Z87.442 Personal history of urinary calculi; R79.89 Other specified abnormal findings of blood chemistry
CPT/HCPCS: 36415; 74018; 80048; G0103

== ENCOUNTER → 2024-10-30 10:28 | Outpatient (CLI) | payer MEDICARE, SELFPAY ==
[2023-01-04 10:14] VITALS: BMI 24.6
--- NOTE | 2024-10-30 10:29 | DI.RAD.S_ITS ---
PROCEDURE: XR KUB INDICATIONS: Follow-up bilateral kidney stones TECHNIQUE: One view of the abdomen acquired. COMPARISON: [facility], CR, XR KUB, 03/29/2024, 8:14. [facility], CT, CT ABDOMEN PELVIS WO CON, 03/09/2024, 9:34. [facility], CR, XR KUB, 06/07/2024, 7:51. FINDINGS: Surgical changes and devices: None. Bowel: Bowel gas pattern is normal. Soft tissues: No suspicious abdominal calcifications. Visualized solid organ contours appear normal in size. Small calcifications again seen projected over the right and left renal fossa appearing similar to prior examination dated 06/07/2024 Bones: No suspicious bony lesions. IMPRESSION: Bilateral nephrolithiasis appearing similar to prior exam. Dictated by: Chapito PONCE Interpreted: Nick Weaver MD on 10/30/2024 at 12:00 Transcribed by: ERICA on 10/30/2024 at 12:02 Approved by: Nick Weaver M.D. on 11/08/2024 at 14:40
== END ==
PROVIDERS: PCP Family Medicine; Referring Provider Family Medicine; Visit Provider Urology
DX: N20.0 Calculus of kidney (principal); Z87.442 Personal history of urinary calculi
CPT/HCPCS: 74018